=== PATIENT | female | born 1935 | race Caucasian/White ===

== ENCOUNTER 2017-11-10 14:33 | Inpatient (IN) | payer MEDICARE, BC ==
[2017-11-10] MEDS ORDERED: VANCOMYCIN IV PER PHARMACY 1 EACH MISC MISCELLANE PRN (14:45)
[2017-11-10] MEDS ORDERED: CEFEPIME 1 GM in SODIUM CHLORIDE 0.9% 50 ML IVPB STA (14:48)
[2017-11-10] MEDS ORDERED: VANCOMYCIN 1,500 MG in SODIUM CHLORIDE 0.9% 250 ML IVPB STA (14:52)
--- NOTE | 2017-11-10 15:00 | ED ---
Fever HPI - General Chief Complaint: Fever Stated Complaint: Fever Time Seen by Provider: 11/10/17 14:38 Source: patient, EMS, old records reviewed Mode of arrival: EMS Limitations: no limitations - History of Present Illness Initial Comments: Pt presents for fever, UTI from [facility]. Pt reportedly had positive UA, started on Amoxicillin, then switched to Macrobid. Pt received ibuprofen [employer], temp at [facility] today 102F. Pt A&O to self only at baseline, no reported change in mentation. Med list shows pt on tamiflu early August. History limited by condition of pt, dementia. MD Complaint: fever Onset/Timin -: days(s) - Related Data Home Medications Medication Instructions Recorded Confirmed Latanoprost Ophth [Xalatan 0.005%] 1 drop BOTH EYES HS 01/28/14 11/10/17 Levothyroxine Sodium [Synthroid] 25 mcg PO DAILY 01/28/14 11/10/17 Atorvastatin [Lipitor] 10 mg PO HS 07/30/14 11/10/17 Docusate [Colace] 200 mg PO BID@0800,1700 11/14/14 11/10/17 Cholecalciferol [Vitamin D3] 2,000 unit PO DAILY 12/11/15 11/10/17 Potassium Chloride [Klor-Con 10] 10 meq PO DAILY 12/11/15 11/10/17 Ascorbic Acid [Vitamin C] 500 mg PO DAILY 05/07/16 11/10/17 Magnesium Oxide [Magox 400] 400 mg PO DAILY 05/07/16 11/10/17 Betaseron Kit 0.3mg 1 dose SQ Q48H 06/09/16 11/10/17 Calcium Carbonate [Tums] 1,000 mg PO AC-SUPPER 06/09/16 11/10/17 Losartan [Cozaar] 50 mg PO QAM 06/09/16 11/10/17 Pramipexole [Mirapex] 0.25 mg PO HS 06/09/16 11/10/17 Psyllium Husk (with Sugar) 6 gm PO DAILY 06/09/16 11/10/17 [Metamucil Powder] Rivaroxaban [Xarelto] 20 mg PO DAILY@1700 06/09/16 11/10/17 Acetaminophen Tab [Tylenol Tab] 650 mg PO Q4H PRN 11/10/17 11/10/17 Amoxicillin/Potassium Clav 1 tab PO Q12HR 11/10/17 11/10/17 [Augmentin 875-125 Tablet] Bisacodyl [Dulcolax] 10 mg RECTAL HS PRN 11/10/17 11/10/17 Brinzolamide [Azopt 1% Ophth Susp] 1 drop BOTH EYES BID@0800,1700 11/10/1711/10 Brinzolamide/Brimonidine Tart 1 drop RIGHT EYE BID@0800,1700 11/10/17 11/10/17 [Simbrinza 1%-0.2% Eye Drops] Carboxymethyl/Gly/Poly80/Pf 1 dropper BOTH EYES DAILY PRN 11/10/17 11/10/17 [Refresh Optive Elio-3 Drops] Cranberry Fruit Extract [Cranberry] 400 mg PO BID@0800,1700 11/10/17 11/10/17 Cyanocobalamin [Vitamin B-12 1,000 mcg SQ QMONTH 11/10/17 11/10/17 Injection] Famotidine [Pepcid] 20 mg PO DAILY 11/10/17 11/10/17 Ibuprofen [Motrin] 800 mg PO Q6H PRN 11/10/17 11/10/17 Lactose-Reduced Food [Ensure Plus] 120 ml PO BID@0800,1700 11/10/17 11/10/17 Loratadine [Claritin] 10 mg PO DAILY PRN 11/10/17 11/10/17 Magnesium Hydroxide [Milk of 2,400 mg PO ONCE PRN 11/10/17 11/10/17 Magnesia] Metoprolol Tartrate [Lopressor] 25 mg PO BID@0800,1700 11/10/17 11/10/17 Mirtazapine [Remeron] 15 mg PO HS 11/10/17 11/10/17 Na Phos,M-B/Na Phos,Di-Ba [Fleet 133 ml RECTAL ONCE PRN 11/10/17 11/10/17 Adult] Previous Rx's Medication Instructions Recorded traMADol HCl [Ultram] 50 mg PO Q6H PRN #30 tab 06/11/16 Allergies Allergy/AdvReac Type Severity Reaction Status Date / Time acetaminophen [From Tylenol] Allergy Rash/Hives Verified 11/10/17 15:41 codeine Allergy Rash/Hives Verified 11/10/17 15:41 epinephrine Allergy Unknown Verified 11/10/17 15:41 sulfacetamide sodium Allergy Rash/Hives Verified 11/10/17 15:41 [From Sulfamide] adhesive AdvReac Unknown Verified 11/10/17 15:41 ciprofloxacin [From Cipro] AdvReac Unknown Verified 11/10/17 15:41 ciprofloxacin HCl AdvReac Unknown Verified 11/10/17 15:41 [From Cipro] oxycodone HCl [From Percocet] AdvReac Unknown Verified 11/10/17 15:41 prednisone AdvReac Unknown Verified 11/10/17 15:41 Sulfa (Sulfonamide AdvReac Nausea & Verified 11/10/17 15:41 Antibiotics) Vomiting Review of Systems ROS Statement: Those systems with pertinent positive or pertinent negative responses have been documented in the HPI. ROS Other: All systems not noted in ROS Statement are negative. Limitations: ROS unobtainable due to patients medical condition Constitutional: Reports: fever Endocrine: Reports: fatigue Past Medical History Past Medical History: Atrial Fibrillation, Cancer, CVA/TIA, Eye Disorder, Fibromyalgia, Hyperlipidemia, Musculoskeletal Disorder, Neurologic Disorder, Osteoarthritis (OA), Thyroid Disorder Additional Past Medical History / Comment(s): 12-11-15 CVA. FX LT HIP. 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 History of Any Multi-Drug Resistant Organisms: VRE Date of last positivie culture/infection: 06/09/16 MDRO Source:: Urine Past Surgical History: Breast Surgery, Cholecystectomy, Heart Catheterization, Hysterectomy, Orthopedic Surgery, Pacemaker Additional Past Surgical History / Comment(s): LT HIP CEMENTED UNIPOLAR HEMIARTHROPLASTY cardiac cath-normal, L AND R ROTATOR CUFF with R done twice, L BREAST PARTIAL MASTECTOMY(CYTOSCARCONA PHYLLODES) THEN RECONSTRUCTION, R BREAST REDUCTION, R EYE ANEURYSM- LASER, L KNEE ARTHROSCOPY, L FOOT SURGERY, R AND L CATARACT SURGERY, LYNETTEA PACEMAKER in January [address] Shell see paper chart for emergency info on pacemaker.CYSTOCELE REPAIR, GETS INJECTIONS IN EYES AND SHOULDER, colonoscopy 2012, capsulotomy-Yag laser 2014. Past Anesthesia/Blood Transfusion Reactions: Previous Problems w/ Anesthesia, Postoperative Nausea & Vomiting (PONV) Additional Past Anesthesia/Blood Transfusion Reaction / Comment(s): LOCAL- VOMITING AND SEIZURE hx long time waking up from anesthesia no epi in local anesthesia!!! Type of Cardiac Device: Permanent Pacemaker Device Placement Date:: 01/30/13 Past Psychological History: Anxiety Smoking Status: Former smoker Past Alcohol Use History: None Reported Past Drug Use History: None Reported - Past Family History Mother Family Medical History: Coronary Artery Disease (CAD) Father Family Medical History: Coronary Artery Disease (CAD), Myocardial Infarction ([place] ) Additional Family Medical History / Comment(s): mother and father-cardiac General Exam - General Exam Comments Initial Comments: Laying in bed alert. Mildly ill appearing. Appears fatigued. Not appear in pain. General appearance: alert, in no apparent distress Head exam: Present: atraumatic, normocephalic Eye exam: Present: normal appearance, PERRL. Absent: scleral icterus, conjunctival injection, periorbital swelling, periorbital tenderness ENT exam: Present: mucous membranes dry Neck exam: Present: normal inspection Respiratory exam: Present: normal lung sounds bilaterally. Absent: respiratory distress, wheezes, rales, rhonchi, stridor Cardiovascular Exam: Present: normal rhythm, tachycardia GI/Abdominal exam: Present: soft. Absent: distended, tenderness, guarding, rebound, rigid Extremities exam: Present: normal inspection, normal capillary refill. Absent: pedal edema, joint swelling Neurological exam: Present: alert, other (Oriented to name. Does not know the hurts, place, year. Follows basic commands, moves all 4 extremities.) Psychiatric exam: Present: normal affect, normal mood Skin exam: Present: warm, dry, intact, normal color. Absent: rash Course Vital Signs 11/10/17 11/10/17 11/10/17 14:46 15:11 16:12 Temperature 99.1 F 98.1 F Pulse Rate 127 H 108 H 107 H Respiratory 16 16 16 Rate Blood Pressure 112/61 142/80 108/58 O2 Sat by Pulse 97 98 97 Oximetry Medical Decision Making - Medical Decision Making Afebrile on arrival. Reported fever today, tachycardic on arrival. Sepsis protocol ordered. Vanco & cefepime given possible healthcare associated infection. Patient worsening on 2 antibiotics outpatient. BP 112 systolic on arrival. Chest x-ray negative. Urinalysis shows possible cystitis with hematuria. Lactic acid 1.5 Patient with likely UTI, possible sepsis. Patient currently on antibiotics. Plan for admission to hospital. For continued IV antibiotic therapy, patient was on antibiotics as an outpatient without improvement. Spoke with PCP Dr. Jamison, updated patient condition results, agrees with admission, no further questions at this time. - Lab Data Result diagrams: 11/10/17 15:10 11/10/17 15:10 Lab Results 11/10/17 11/10/17 11/10/17 Range/Units 14:45 15:10 15:10 WBC 9.5 (3.8-10.6) k/uL RBC 3.90 (3.80-5.40) m/uL Hgb 11.1 L (11.4-16.0) gm/dL Hct 36.2 (34.0-46.0) % MCV 92.9 (80.0-100.0) fL MCH 28.5 (25.0-35.0) pg MCHC 30.7 L (31.0-37.0) g/dL RDW 13.7 (11.5-15.5) % Plt Count 132 L (150-450) k/uL Neutrophils % 93 % Lymphocytes % 3 % Monocytes % 2 % Eosinophils % 1 % Basophils % 0 % Neutrophils # 8.9 H (1.3-7.7) k/uL Lymphocytes # 0.3 L (1.0-4.8) k/uL Monocytes # 0.2 (0-1.0) k/uL Eosinophils # 0.1 (0-0.7) k/uL Basophils # 0.0 (0-0.2) k/uL Hypochromasia Slight PT (9.0-12.0) sec INR (<1.2) APTT (22.0-30.0) sec Sodium (137-145) mmol/L Potassium (3.5-5.1) mmol/L Chloride (98-107) mmol/L Carbon Dioxide (22-30) mmol/L Anion Gap mmol/L BUN (7-17) mg/dL Creatinine (0.52-1.04) mg/dL Est GFR (MDRD) Af Amer (>60 ml/min/1.73 sqM) Est GFR (MDRD) Non-Af (>60 ml/min/1.73 sqM) Glucose (74-99) mg/dL Plasma Lactic Acid [place] (0.7-2.0) mmol/L Calcium (8.4-10.2) mg/dL Total Bilirubin (0.2-1.3) mg/dL AST (14-36) U/L ALT (9-52) U/L Alkaline Phosphatase (38-126) U/L Total Protein (6.3-8.2) g/dL Albumin (3.5-5.0) g/dL TSH (0.465-4.680) mIU/L Urine Color Yellow Urine Appearance Cloudy H (Clear) Urine pH 6.5 (5.0-8.0) Ur Specific [place] 1.014 (1.001-1.035) Urine Protein 2+ H (Negative) Urine Glucose (UA) Negative (Negative) Urine Ketones Negative (Negative) Urine Blood Large H (Negative) Urine Nitrite Negative (Negative) Urine Bilirubin Negative (Negative) Urine Urobilinogen <2.0 (<2.0) mg/dL Ur Leukocyte Esterase Large H (Negative) Urine RBC >182 H (0-5) /hpf Urine WBC 176 H (0-5) /hpf Urine WBC Clumps Many H (None) /hpf Urine Bacteria Rare H (None) /hpf Influenza Type A RNA Not Detected (Not Detectd) Influenza Type B (PCR) Not Detected (Not Detectd) 11/10/17 11/10/17 11/10/17 Range/Units 15:10 15:10 15:10 WBC (3.8-10.6) k/uL RBC (3.80-5.40) m/uL Hgb (11.4-16.0) gm/dL Hct (34.0-46.0) % MCV (80.0-100.0) fL MCH (25.0-35.0) pg MCHC (31.0-37.0) g/dL RDW (11.5-15.5) % Plt Count (150-450) k/uL Neutrophils % % Lymphocytes % % Monocytes % % Eosinophils % % Basophils % % Neutrophils # (1.3-7.7) k/uL Lymphocytes # (1.0-4.8) k/uL Monocytes # (0-1.0) k/uL Eosinophils # (0-0.7) k/uL Basophils # (0-0.2) k/uL Hypochromasia PT 10.2 (9.0-12.0) sec INR 1.0 (<1.2) APTT 32.2 H (22.0-30.0) sec Sodium 143 (137-145) mmol/L Potassium 4.2 (3.5-5.1) mmol/L Chloride 110 H (98-107) mmol/L Carbon Dioxide 23 (22-30) mmol/L Anion Gap 10 mmol/L BUN 56 H (7-17) mg/dL Creatinine 1.40 H (0.52-1.04) mg/dL Est GFR (MDRD) Af Amer 44 (>60 ml/min/1.73 sqM) Est GFR (MDRD) Non-Af 36 (>60 ml/min/1.73 sqM) Glucose 163 H (74-99) mg/dL Plasma Lactic Acid [place] 1.5 (0.7-2.0) mmol/L Calcium 9.2 (8.4-10.2) mg/dL Total Bilirubin 0.5 (0.2-1.3) mg/dL AST 27 (14-36) U/L ALT 29 (9-52) U/L Alkaline Phosphatase 95 (38-126) U/L Total Protein 5.3 L (6.3-8.2) g/dL Albumin 2.6 L (3.5-5.0) g/dL TSH 2.100 (0.465-4.680) mIU/L Urine Color Urine Appearance (Clear) Urine pH (5.0-8.0) Ur Specific [place] (1.001-1.035) Urine Protein (Negative) Urine Glucose (UA) (Negative) Urine Ketones (Negative) Urine Blood (Negative) Urine Nitrite (Negative) Urine Bilirubin (Negative) Urine Urobilinogen (<2.0) mg/dL Ur Leukocyte Esterase (Negative) Urine RBC (0-5) /hpf Urine WBC (0-5) /hpf Urine WBC Clumps (None) /hpf Urine Bacteria (None) /hpf Influenza Type A RNA (Not Detectd) Influenza Type B (PCR) (Not Detectd) Disposition Clinical Impression: Sepsis, Complicated UTI (urinary tract infection) Disposition: ADMITTED IP TO THIS HOSP Condition: Good Referrals: Polo Jamison MD [Primary Care Provider] - 1-2 days
[2017-11-10 15:07] LABS: Appearance,Urine Cloudy (Clear); Bacteria,Urine Rare /hpf; Bilirubin,Urine Negative (Negative); Blood,Urine Large (Negative); Color,Urine Yellow; Glucose,Urine (UA) Negative (Negative); Ketones,Urine Negative (Negative); Leukocyte Esterase,Urine Large (Negative); Nitrite,Urine Negative (Negative); PH, Urine 6.5 (5.0-8.0); Protein,Urine 2+ (Negative); RBC,Urine >182 /hpf (0-5); Specific Gravity,Urine 1.014 (1.001-1.035); Urobilinogen,Urine <2.0 mg/dL (<2.0); WBC,Urine 176 /hpf (0-5)
--- NOTE | 2017-11-10 15:10 | XR ---
EXAMINATION TYPE: XR chest 1V portable DATE OF EXAM: 11/10/2017 COMPARISON: 06/09/2016 HISTORY: Fever TECHNIQUE: Single frontal view of the chest is obtained. FINDINGS: Postsurgical change involving the shoulders. Cardiac device noted. No evidence of pneumoth orax. No pleural effusion or focal consolidation. IMPRESSION: No acute process.
[2017-11-10 15:26] LABS: Basophils % (A) 0 %; Eosinophils # (A) 0.1 k/uL (0-0.7); Eosinophils % (A) 1 %; HCT 36.2 % (34.0-46.0); HGB 11.1 gm/dL (11.4-16.0); Hypochromasia Slight; Lymphocytes # (A) 0.3 k/uL (1.0-4.8); Lymphocytes % (A) 3 %; MCH 28.5 pg (25.0-35.0); MCHC 30.7 g/dL (31.0-37.0); MCV 92.9 fL (80.0-100.0); Mean Platelet Volume 8.3; Monocytes # (A) 0.2 k/uL (0-1.0); Monocytes % (A) 2 %; Neutrophils # (A) 8.9 k/uL (1.3-7.7); Neutrophils % (A) 93 %; Platelet Count 132 k/uL (150-450); RDW 13.7 % (11.5-15.5); WBC 9.5 k/uL (3.8-10.6)
[2017-11-10] MEDS: SODIUM CHLORIDE 0.9% 500 ML IV SCH ×2 (15:27→17:08)
[2017-11-10 15:35] LABS: Partial Thromboplastin Time 32.2 sec (22.0-30.0); Prothrombin Time 10.2 sec (9.0-12.0)
[2017-11-10 15:39] LABS: Albumin 2.6 g/dL (3.5-5.0); Calcium 9.2 mg/dL (8.4-10.2); Potassium 4.2 mmol/L (3.5-5.1); Total Bilirubin 0.5 mg/dL (0.2-1.3); Total Protein 5.3 g/dL (6.3-8.2)
[2017-11-10] MEDS: METOPROLOL TARTRATE 25 MG TAB PO SCH (20:31)
[2017-11-10] MEDS: SODIUM CHLORIDE 0.9% 1,000 ML IV SCH (20:34)
[2017-11-10] MEDS: PRAMIPEXOLE 0.25 MG TAB PO SCH (21:49)
[2017-11-10] MEDS: MIRTAZAPINE 15 MG TAB PO SCH (21:49)
[2017-11-10] MEDS ORDERED: BISACODYL 10 MG SUPP RECTAL PRN (21:50)
[2017-11-10] MEDS: LATANOPROST 0.005% OPHTH DROPS 2.5 ML BTL BOTH EYES SCH (21:50)
[2017-11-10] MEDS: ATORVASTATIN 10 MG TAB PO SCH (21:50)
[2017-11-10] MEDS ORDERED: MAGNESIUM HYDROXIDE 2,400 MG/10 ML CUP PO PRN (21:50)
[2017-11-10] MEDS ORDERED: ARTIFICIAL TEARS-HYPROMELLOSE DROPS 15 ML BTL BOTH EYES PRN (21:50)
[2017-11-10] MEDS ORDERED: LORATADINE 10 MG TAB PO PRN (21:50)
[2017-11-10] MEDS ORDERED: IBUPROFEN 800 MG TAB PO PRN (21:50)
[2017-11-11] MEDS: ACETAMINOPHEN TAB 325 MG TAB PO PRN ×2 (00:48→05:32)
[2017-11-11 04:12] LABS: Calcium 8.9 mg/dL (8.4-10.2)
[2017-11-11 04:17] LABS: Potassium 4.2 mmol/L (3.5-5.1)
[2017-11-11 04:31] LABS: Basophils % (A) 0 %; Eosinophils % (A) 0 %; HCT 36.1 % (34.0-46.0); HGB 11.4 gm/dL (11.4-16.0); Hypochromasia Slight; Lymphocytes # (A) 0.5 k/uL (1.0-4.8); Lymphocytes % (A) 6 %; MCH 28.8 pg (25.0-35.0); MCHC 31.6 g/dL (31.0-37.0); MCV 91.2 fL (80.0-100.0); Mean Platelet Volume 8.5; Monocytes # (A) 0.3 k/uL (0-1.0); Monocytes % (A) 4 %; Neutrophils # (A) 6.4 k/uL (1.3-7.7); Neutrophils % (A) 87 %; RBC 3.96 m/uL (3.80-5.40); RDW 13.6 % (11.5-15.5); WBC 7.4 k/uL (3.8-10.6)
[2017-11-11 05:15] LABS: Platelet Count 99 k/uL (150-450)
[2017-11-11] MEDS: LEVOTHYROXINE 25 MCG TAB PO SCH (05:32)
[2017-11-11] MEDS ORDERED: VANCOMYCIN 1,500 MG in SODIUM CHLORIDE 0.9% 250 ML IVPB SCH (06:00)
[2017-11-11] MEDS ORDERED: METOPROLOL TARTRATE 25 MG TAB PO SCH (08:00)
[2017-11-11] MEDS: SODIUM CHLORIDE 0.9% 1,000 ML IV SCH (08:01)
[2017-11-11] MEDS ORDERED: AMOXIC-POT CLAV 875-125MG 1 EACH TAB PO SCH (09:00)
[2017-11-11] MEDS: MAGNESIUM OXIDE 400 MG TAB PO SCH (09:58)
[2017-11-11] MEDS: BRIMONIDINE TARTRATE 0.2% DROPS 5 ML BTL RIGHT EYE SCH ×2 (10:00→17:49)
[2017-11-11] MEDS: DORZOLAMIDE HCL 2% DROPS 10 ML BTL BOTH EYES SCH ×2 (10:01→17:51)
[2017-11-11] MEDS: METOPROLOL TARTRATE 25 MG TAB PO SCH ×2 (10:08→17:53)
[2017-11-11] MEDS: DOCUSATE 100 MG CAP PO SCH ×2 (10:08→17:56)
[2017-11-11] MEDS: POTASSIUM CHLORIDE ER 10 MEQ TAB.ER.PRT PO SCH (10:09)
[2017-11-11] MEDS: LOSARTAN 50 MG TAB PO SCH (10:09)
[2017-11-11] MEDS: FAMOTIDINE 20 MG TAB PO SCH (10:09)
[2017-11-11] MEDS: BETASERON 0.3 MG SQ SCH (10:10)
[2017-11-11 10:49] VITALS: BMI 30.9
[2017-11-11 13:19] LABS: Glucose,Whole Blood 84 mg/dL (75-99)
--- NOTE | 2017-11-11 15:40 | HP ---
HISTORY AND PHYSICAL CHIEF COMPLAINT: Sepsis ?. HISTORY OF PRESENT ILLNESS: This is another OF many admissions for this 82-year-old white female who has multiple sclerosis, encephalopathy, dementia and blindness. She started to run a fever at [facility]. She is prone to frequent urinary tract infections. Antibiotics were started, but the next day the home sent her to the ER. REVIEW OF SYSTEMS: Unobtainable. PAST MEDICAL HISTORY: Past medical history, family history personal and social histories are all unobtainable. The details can be found on the documents accompanying her from the retirement. PHYSICAL EXAMINATION: Blood pressure is 128/78 with a pulse of 101, respirations of 42, and temperature of a 100.1. In general she appeared to be slightly dehydrated. Skin was hot and dry. Head, ears, eyes, nose, mouth, and throat were normal except for dry conjunctivae and mucous membranes. Neck veins were not distended. Chest was clear. There are no rales or rhonchi. Cardiac exam demonstrates sinus tachycardia. Abdomen is soft and seems nontender. There are no masses or visceromegaly. EXTREMITIES: Normal. Neurologically she was more lethargic than usual and non arousable. IMPRESSION: 1. Septicemia ? 2. Urinary tract infection ? 3. Multiple sclerosis. 4. Dementia. 5. Blindness. PLAN: 1. Bed rest. 2. IV fluids. 3. Appropriate cultures. 4. Antibiotics. MMODL / IJN: [id number] /
--- NOTE | 2017-11-11 16:01 | PN ---
PROGRESS NOTE CHIEF COMPLAINT: Septicemia. HISTORY OF PRESENT ILLNESS: This lady was still running high temps last night. Blood cultures were repeated. PHYSICAL EXAM: She is dry. Chest seems clear. She is slightly tachypneic. Cardiac exam is normal. Abdomen is soft and nontender. She is still very lethargic. IMPRESSION: 1. Septicemia. 2. Dehydration. 3. Multiple sclerosis. PLAN: 1. Await cultures. 2. ID consult. MMODL / IJN: [id number] /
[2017-11-11] MEDS ORDERED: RIVAROXABAN 20 MG TAB PO SCH (17:00)
[2017-11-11] MEDS: PRAMIPEXOLE 0.25 MG TAB PO SCH (23:00)
[2017-11-11] MEDS: RIVAROXABAN 10 MG TAB PO SCH (23:00)
[2017-11-11] MEDS: MIRTAZAPINE 15 MG TAB PO SCH (23:00)
[2017-11-11] MEDS: LATANOPROST 0.005% OPHTH DROPS 2.5 ML BTL BOTH EYES SCH (23:00)
[2017-11-11] MEDS: ATORVASTATIN 10 MG TAB PO SCH (23:00)
--- NOTE | 2017-11-12 00:54 | P.CONS ---
History of Present Illness - Reason for Consult Consult date: 11/11/17 - Chief Complaint Fever - History of Present Illness 82-year-old female who has multiple hospitalizations over the last several years related to bouts of sepsis likely from urinary tract infection. The patient's family is present. The patient has progressive dementia and is cared for the local extended care facility. Apparently she started to have some decreasing mental status and some fever because he was transported to hospital admission been treated with some oral antibiotic therapy with no improvement. Because of ongoing concerns of sepsis the infectious diseases was requested. The family relates that before admission she was not having nausea or emesis but was having poor appetite. She appeared to have no respiratory difficulties. Do not believe that she is not and diarrhea. There is no evidence of any hematemesis melena or hematochezia. No new Skin lesions appreciated Review of Systems ROS unobtainable: due to mental status Past Medical History Past Medical History: Atrial Fibrillation, Cancer, CVA/TIA, Dementia, Eye Disorder, Fibromyalgia, Hyperlipidemia, Hypertension, Musculoskeletal Disorder, Neurologic Disorder, Osteoarthritis (OA), Thyroid Disorder Additional Past Medical History / Comment(s): 12-11-15 CVA. FX LT HIP. 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 History of Any Multi-Drug Resistant Organisms: VRE Year Discovered:: 06/09/16 MDRO Source:: Urine Past Surgical History: Breast Surgery, Cholecystectomy, Heart Catheterization, Hysterectomy, Orthopedic Surgery, Pacemaker Additional Past Surgical History / Comment(s): LT HIP CEMENTED UNIPOLAR HEMIARTHROPLASTY cardiac cath-normal, L AND R ROTATOR CUFF with R done twice, L BREAST PARTIAL MASTECTOMY(CYTOSCARCONA PHYLLODES) THEN RECONSTRUCTION, R BREAST REDUCTION, R EYE ANEURYSM- LASER, L KNEE ARTHROSCOPY, L FOOT SURGERY, R AND L CATARACT SURGERY, ADAPTA DR PACEMAKER in January [address] Shell see paper chart for emergency info on pacemaker.CYSTOCELE REPAIR, GETS INJECTIONS IN EYES AND SHOULDER, colonoscopy 2012, capsulotomy-Yag laser 2014. Past Anesthesia/Blood Transfusion Reactions: Previous Problems w/ Anesthesia, Postoperative Nausea & Vomiting (PONV) Additional Past Anesthesia/Blood Transfusion Reaction / Comm: LOCAL-VOMITING AND SEIZURE hx long time waking up from anesthesia no epi in local anesthesia!!! Type of Cardiac Device: Permanent Pacemaker Device Placement Date:: 01/30/13 Additional Psychological History / Comment(s): . Resides in extended care. No tobacco use. No alcohol use. 3 adult children. No animal exposures. No experience no international travel Smoking Status: Former smoker - Past Family History Mother Family Medical History: Coronary Artery Disease (CAD) Father Family Medical History: Coronary Artery Disease (CAD), Myocardial Infarction ([place] ) Additional Family Medical History / Comment(s): mother and father-cardiac Medications and Allergies Home Medications and Allergies Comment(s): Current Medications Acetaminophen (Tylenol Tab) 650 mg PO Q4H PRN PRN Reason: Pain Last Admin: 11/11/17 05:32 Dose: 650 mg Artificial Tears (Artificial Tear Drops) 1 drops BOTH EYES DAILY PRN PRN Reason: Dry Eye(s) Atorvastatin Calcium (Lipitor) 10 mg PO HS [facility] Last Admin: 11/11/17 23:00 Dose: 10 mg Bisacodyl (Dulcolax) 10 mg RECTAL HS PRN PRN Reason: Constipation Brimonidine Tartrate (Alphagan P 0.2% Oph Soln) 1 drops RIGHT EYE BID@0800, 1700 [facility] Last Admin: 11/11/17 17:49 Dose: 1 drops Docusate Sodium (Colace) 200 mg PO BID@0800,1700 [facility] Last Admin: 11/11/17 17:56 Dose: 200 mg Dorzolamide HCl (Trusopt) 1 drops BOTH EYES BID@0800,1700 [facility] Last Admin: 11/11/17 17:51 Dose: 1 drops Famotidine (Pepcid) 20 mg PO DAILY [facility] Last Admin: 11/11/17 10:09 Dose: Not Given Sodium Chloride (Saline 0.9%) 1,000 mls @ 75 mls/hr IV .[id number] [facility] Last Admin: 11/11/17 08:01 Dose: Not Given Ceftazidime 2 gm/ Sodium (Chloride) 100 mls @ 100 mls/hr IVPB Q12HR [facility] Last Admin: 11/11/17 23:15 Dose: 100 mls/hr Ibuprofen (Motrin) 800 mg PO Q6H PRN PRN Reason: Pain or Fever > 100.5 Last Admin: 11/11/17 01:41 Dose: 800 mg Latanoprost (Xalatan 0.005%) 1 drops BOTH EYES [facility] Last Admin: 11/11/17 23:00 Dose: 1 drops Levothyroxine Sodium (Synthroid) 25 mcg PO DAILY@0630 [facility] Last Admin: 11/11/17 05:32 Dose: 25 mcg Loratadine (Claritin) 10 mg PO DAILY PRN PRN Reason: Allergy Symptoms Losartan Pot[facility] ([facility]ar) [facility] Admin: 11/11/17 10:09 Dose: Not Given Magnesium Hydroxide (Milk Of Magnesia) 2,400 mg PO ONCE PRN PRN Reason: Constipation Magnesium Oxide (Mag-Ox) 400 mg PO DAILY [facility] Last Admin: 11/11/17 09:58 Dose: Not Given Metoprolol Tartrate (Lopressor) 25 mg PO BID@0800,1700 [facility] Last Admin: 11/11/17 17:53 Dose: 25 mg Mirtazapine (Remeron) 15 mg PO [facility] Last Admin: 11/11/17 23:00 Dose: 15 mg Non-Formulary Medication (Betaseron Kit 0.3mg) 1 dose SQ Q48H [facility] Last Admin: 11/11/17 10:10 Dose: Not Given Potassium Chloride (K-Dur 10) 10 meq PO DAILY [facility] Last Admin: 11/11/17 10:09 Dose: Not Given Pramipexole Dihydrochloride (Mirapex) 0.25 mg PO [facility] Last Admin: 11/11/17 23:00 Dose: 0.25 mg Rivaroxaban (Xarelto) 20 mg PO DAILY@1700 [facility] Last Admin: 11/11/17 23:00 Dose: 20 mg Home Medications Medication Instructions Recorded Confirmed Type Latanoprost Ophth [Xalatan 0.005%] 1 drop BOTH EYES 01/28/14 11/10/17 History Levothyroxine Sodium [Synthroid] 25 mcg PO DAILY 01/28/14 11/10/17 History Atorvastatin [Lipitor] 10 mg PO HS 07/30/14 11/10/17 History Docusate [Colace] 200 mg PO BID@0800,1700 11/14/14 11/10/17 History Cholecalciferol [Vitamin D3] 2,000 unit PO DAILY 12/11/15 11/10/17 History Potassium Chloride [Klor-Con 10] 10 meq PO DAILY 12/11/15 11/10/17 History Ascorbic Acid [Vitamin C] 500 mg PO DAILY 05/07/16 11/10/17 History Magnesium Oxide [Magox 400] 400 mg PO DAILY 05/07/16 11/10/17 History Betaseron Kit 0.3mg 1 dose SQ Q48H 06/09/16 11/10/17 History Calcium Carbonate [Tums] 1,000 mg PO AC-SUPPER 06/09/16 11/10/17 History Losartan [Cozaar] 50 mg PO QAM 06/09/16 11/10/17 History Pramipexole [Mirapex] 0.25 mg PO HS 06/09/16 11/10/17 History Psyllium Husk (with Sugar) 6 gm PO DAILY 06/09/16 11/10/17 History [Metamucil Powder] Rivaroxaban [Xarelto] 20 mg PO DAILY@1700 06/09/16 11/10/17 History traMADol HCl [Ultram] 50 mg PO Q6H PRN #30 tab 06/11/16 11/10/17 Rx Acetaminophen Tab [Tylenol Tab] 650 mg PO Q4H PRN 11/10/17 11/10/17 History Amoxicillin/Potassium Clav 1 tab PO Q12HR 11/10/17 11/10/17 History [Augmentin 875-125 Tablet] Bisacodyl [Dulcolax] 10 mg RECTAL HS PRN 11/10/17 11/10/17 History Brinzolamide [Azopt 1% Ophth Susp] 1 drop BOTH EYES BID@0800,1700 11/10/1711/10 History Brinzolamide/Brimonidine Tart 1 drop RIGHT EYE BID@0800,1700 11/10/17 11/10/17 History [Simbrinza 1%-0.2% Eye Drops] Carboxymethyl/Gly/Poly80/Pf 1 dropper BOTH EYES DAILY PRN 11/10/17 11/10/17 History [Refresh Optive Elio-3 Drops] Cranberry Fruit Extract [Cranberry] 400 mg PO BID@0800,1700 11/10/17 11/10/17 History Cyanocobalamin [Vitamin B-12 1,000 mcg SQ QMONTH 11/10/17 11/10/17 History Injection] Famotidine [Pepcid] 20 mg PO DAILY 11/10/17 11/10/17 History Ibuprofen [Motrin] 800 mg PO Q6H PRN 11/10/17 11/10/17 History Lactose-Reduced Food [Ensure Plus] 120 ml PO BID@0800,1700 11/10/17 11/10/17 History Loratadine [Claritin] 10 mg PO DAILY PRN 11/10/17 11/10/17 History Magnesium Hydroxide [Milk of 2,400 mg PO ONCE PRN 11/10/17 11/10/17 History Magnesia] Metoprolol Tartrate [Lopressor] 25 mg PO BID@0800,1700 11/10/17 11/10/17 History Mirtazapine [Remeron] 15 mg PO HS 11/10/17 11/10/17 History Na Phos,M-B/Na Phos,Di-Ba [Fleet 133 ml RECTAL ONCE PRN 11/10/17 11/10/17 History Adult] Allergies Allergy/AdvReac Type Severity Reaction Status Date / Time acetaminophen [From Tylenol] Allergy Rash/Hives Verified 11/10/17 15:41 codeine Allergy Rash/Hives Verified 11/10/17 15:41 epinephrine Allergy Unknown Verified 11/10/17 15:41 sulfacetamide sodium Allergy Rash/Hives Verified 11/10/17 15:41 [From Sulfamide] adhesive AdvReac Unknown Verified 11/10/17 15:41 ciprofloxacin [From Cipro] AdvReac Unknown Verified 11/10/17 15:41 ciprofloxacin HCl AdvReac Unknown Verified 11/10/17 15:41 [From Cipro] oxycodone HCl [From Percocet] AdvReac Unknown Verified 11/10/17 15:41 prednisone AdvReac Unknown Verified 11/10/17 15:41 Sulfa (Sulfonamide AdvReac Nausea & Verified 11/10/17 15:41 Antibiotics) Vomiting Physical Exam Vitals: Vital Signs Temp Pulse Resp BP Pulse Ox 11/11/17 23:00 97.7 F 64 16 137/71 97 11/11/17 16:00 68 16 11/11/17 15:00 98.1 F 68 16 134/70 92 L 11/11/17 12:25 97.7 F 11/11/17 09:43 70 20 11/11/17 07:00 96.8 F L 70 20 94/58 96 11/11/17 04:00 100.4 F H 11/11/17 02:57 101.9 F H 97 18 146/51 94 L 11/11/17 00:52 104.2 F H Intake and Output 11/11/17 11/11/17 11/12/17 14:59 22:59 06:59 Intake Total 700 Balance 700 Intake: Intake, IV Titration 700 Amount Sodium Chloride 0.9% 1, 600 000 ml @ 75 mls/hr IV . [id number] [facility] Rx#:[id number] cefTAZidime 2 gm In 100 Sodium Chloride 0.9% 100 ml @ 100 mls/hr IVPB Q12HR [facility] Rx#:[id number] Other: Voiding Method Diaper Diaper # Voids 1 1 Weight 81.647 kg Patient Weight 11/12/17 06:59 Weight 81.647 kg 82-year-old female with advanced dementia but seems to be comfortable HEENT: Anicteric conjunctiva are pink and moist nasal mucosa grossly intact without significant lesions, there is no thrush. Dentition Neck: The neck without stiffness, no palpable thyromegaly or mass Lungs: Symmetrical air entry was noted with few basilar crackles no significant bronchial sounds no dullness or egophony Heart: Irregular with a positive S4 no murmur click or rub Abdomen: Positive bowel sounds soft and nontender without palpable masses or organomegaly. There was no guarding or rebound. Extremities: The upper and lower extremities have some wasting and spasticity but no significant ulcerations are seen pulses are 2+ and symmetric Neuro: Patient is arousable but provides no history did not really follow any commands either Skin is without erythema or breakdown Results CBC & Chem 7: 11/11/17 03:24 11/11/17 03:24 Labs: Abnormal Lab Results - Last 24 Hours (Table) 11/11/17 11/11/17 Range/Units 03:24 03:24 Plt Count 99 L (150-450) k/uL Lymphocytes # 0.5 L (1.0-4.8) k/uL Chloride 116 H (98-107) mmol/L Carbon Dioxide 20 L (22-30) mmol/L BUN 48 H (7-17) mg/dL Creatinine 1.11 H (0.52-1.04) mg/dL Microbiology - Last 24 Hours (Table) 11/10/17 14:45 Urine Culture - Final Urine,Catheterized 11/10/17 15:10 Blood Culture - Preliminary Blood No Growth after 24 hours Laboratory Results WBC 7.4 k/uL (3.8-10.6) 11/11/17 03:24 RBC 3.96 m/uL (3.80-5.40) 11/11/17 03:24 Hgb 11.4 gm/dL (11.4-16.0) 11/11/17 03:24 Hct 36.1 % (34.0-46.0) 11/11/17 03:24 MCV 91.2 fL (80.0-100.0) 11/11/17 03:24 MCH 28.8 pg (25.0-35.0) 11/11/17 03:24 MCHC 31.6 g/dL (31.0-37.0) 11/11/17 03:24 RDW 13.6 % (11.5-15.5) 11/11/17 03:24 Plt Count 99 k/uL (150-450) L 11/11/17 03:24 Neutrophils % 87 % 11/11/17 03:24 Lymphocytes % 6 % 11/11/17 03:24 Monocytes % 4 % 11/11/17 03:24 Eosinophils % 0 % 11/11/17 03:24 Basophils % 0 % 11/11/17 03:24 Neutrophils # 6.4 k/uL (1.3-7.7) 11/11/17 03:24 Lymphocytes # 0.5 k/uL (1.0-4.8) L 11/11/17 03:24 Monocytes # 0.3 k/uL (0-1.0) 11/11/17 03:24 Eosinophils # 0.0 k/uL (0-0.7) 11/11/17 03:24 Basophils # 0.0 k/uL (0-0.2) 11/11/17 03:24 Manual Slide Review Performed 11/11/17 03:24 Hypochromasia Slight 11/11/17 03:24 PT 10.2 sec (9.0-12.0) 11/10/17 15:10 INR 1.0 (<1.2) 11/10/17 15:10 APTT 32.2 sec (22.0-30.0) H 11/10/17 15:10 Sodium 145 mmol/L (137-145) 11/11/17 03:24 Potassium 4.2 mmol/L (3.5-5.1) 11/11/17 03:24 Chloride 116 mmol/L (98-107) H 11/11/17 03:24 Carbon Dioxide 20 mmol/L (22-30) L 11/11/17 03:24 Anion Gap 9 mmol/L 11/11/17 03:24 BUN 48 mg/dL (7-17) H 11/11/17 03:24 Creatinine 1.11 mg/dL (0.52-1.04) H 11/11/17 03:24 Est GFR (MDRD) Af Amer 57 (>60 ml/min/1.73 sqM) 11/11/17 03:24 Est GFR (MDRD) Non-Af 47 (>60 ml/min/1.73 sqM) 11/11/17 03:24 Glucose 99 mg/dL (74-99) 11/11/17 03:24 POC Glucose (mg/dL) 84 mg/dL (75-99) 11/11/17 13:15 POC Glu Mechanical Development Engineer ID Rochelle Welch 11/11/17 13:15 Plasma Lactic Acid [place] 1.5 mmol/L (0.7-2.0) 11/10/17 15:10 Calcium 8.9 mg/dL (8.4-10.2) 11/11/17 03:24 Total Bilirubin 0.5 mg/dL (0.2-1.3) 11/10/17 15:10 AST 27 U/L (14-36) 11/10/17 15:10 ALT 29 U/L (9-52) 11/10/17 15:10 Alkaline Phosphatase 95 U/L (38-126) 11/10/17 15:10 Total Protein 5.3 g/dL (6.3-8.2) L 11/10/17 15:10 Albumin 2.6 g/dL (3.5-5.0) L 11/10/17 15:10 TSH 2.100 mIU/L (0.465-4.680) 11/10/17 15:10 Urine Color Yellow 11/10/17 14:45 Urine Appearance Cloudy (Clear) H 11/10/17 14:45 Urine pH 6.5 (5.0-8.0) 11/10/17 14:45 Ur Specific [place] 1.014 (1.001-1.035) 11/10/17 14:45 Urine Protein 2+ (Negative) H 11/10/17 14:45 Urine Glucose (UA) Negative (Negative) 11/10/17 14:45 Urine Ketones Negative (Negative) 11/10/17 14:45 Urine Blood Large (Negative) H 11/10/17 14:45 Urine Nitrite Negative (Negative) 11/10/17 14:45 Urine Bilirubin Negative (Negative) 11/10/17 14:45 Urine Urobilinogen <2.0 mg/dL (<2.0) 11/10/17 14:45 Ur Leukocyte Esterase Large (Negative) H 11/10/17 14:45 Urine RBC >182 /hpf (0-5) H 11/10/17 14:45 Urine WBC 176 /hpf (0-5) H 11/10/17 14:45 Urine WBC Clumps Many /hpf (None) H 11/10/17 14:45 Urine Bacteria Rare /hpf (None) H 11/10/17 14:45 Influenza Type A RNA Not Detected (Not Detectd) 11/10/17 15:10 Influenza Type B (PCR) Not Detected (Not Detectd) 11/10/17 15:10 Laboratory Results WBC 7.4 k/uL (3.8-10.6) 11/11/17 03:24 RBC 3.96 m/uL (3.80-5.40) 11/11/17 03:24 Hgb 11.4 gm/dL (11.4-16.0) 11/11/17 03:24 Hct 36.1 % (34.0-46.0) 11/11/17 03:24 MCV 91.2 fL (80.0-100.0) 11/11/17 03:24 MCH 28.8 pg (25.0-35.0) 11/11/17 03:24 MCHC 31.6 g/dL (31.0-37.0) 11/11/17 03:24 RDW 13.6 % (11.5-15.5) 11/11/17 03:24 Plt Count 99 k/uL (150-450) L 11/11/17 03:24 Neutrophils % 87 % 11/11/17 03:24 Lymphocytes % 6 % 11/11/17 03:24 Monocytes % 4 % 11/11/17 03:24 Eosinophils % 0 % 11/11/17 03:24 Basophils % 0 % 11/11/17 03:24 Neutrophils # 6.4 k/uL (1.3-7.7) 11/11/17 03:24 Lymphocytes # 0.5 k/uL (1.0-4.8) L 11/11/17 03:24 Monocytes # 0.3 k/uL (0-1.0) 11/11/17 03:24 Eosinophils # 0.0 k/uL (0-0.7) 11/11/17 03:24 Basophils # 0.0 k/uL (0-0.2) 11/11/17 03:24 Manual Slide Review Performed 11/11/17 03:24 Hypochromasia Slight 11/11/17 03:24 PT 10.2 sec (9.0-12.0) 11/10/17 15:10 INR 1.0 (<1.2) 11/10/17 15:10 APTT 32.2 sec (22.0-30.0) H 11/10/17 15:10 Sodium 145 mmol/L (137-145) 11/11/17 03:24 Potassium 4.2 mmol/L (3.5-5.1) 11/11/17 03:24 Chloride 116 mmol/L (98-107) H 11/11/17 03:24 Carbon Dioxide 20 mmol/L (22-30) L 11/11/17 03:24 Anion Gap 9 mmol/L 11/11/17 03:24 BUN 48 mg/dL (7-17) H 11/11/17 03:24 Creatinine 1.11 mg/dL (0.52-1.04) H 11/11/17 03:24 Est GFR (MDRD) Af Amer 57 (>60 ml/min/1.73 sqM) 11/11/17 03:24 Est GFR (MDRD) Non-Af 47 (>60 ml/min/1.73 sqM) 11/11/17 03:24 Glucose 99 mg/dL (74-99) 11/11/17 03:24 POC Glucose (mg/dL) 84 mg/dL (75-99) 11/11/17 13:15 POC Glu Mechanical Development Engineer ID Rochelle Welch 11/11/17 13:15 Plasma Lactic Acid [place] 1.5 mmol/L (0.7-2.0) 11/10/17 15:10 Calcium 8.9 mg/dL (8.4-10.2) 11/11/17 03:24 Total Bilirubin 0.5 mg/dL (0.2-1.3) 11/10/17 15:10 AST 27 U/L (14-36) 11/10/17 15:10 ALT 29 U/L (9-52) 11/10/17 15:10 Alkaline Phosphatase 95 U/L (38-126) 11/10/17 15:10 Total Protein 5.3 g/dL (6.3-8.2) L 11/10/17 15:10 Albumin 2.6 g/dL (3.5-5.0) L 11/10/17 15:10 TSH 2.100 mIU/L (0.465-4.680) 11/10/17 15:10 Urine Color Yellow 11/10/17 14:45 Urine Appearance Cloudy (Clear) H 11/10/17 14:45 Urine pH 6.5 (5.0-8.0) 11/10/17 14:45 Ur Specific [place] 1.014 (1.001-1.035) 11/10/17 14:45 Urine Protein 2+ (Negative) H 11/10/17 14:45 Urine Glucose (UA) Negative (Negative) 11/10/17 14:45 Urine Ketones Negative (Negative) 11/10/17 14:45 Urine Blood Large (Negative) H 11/10/17 14:45 Urine Nitrite Negative (Negative) 11/10/17 14:45 Urine Bilirubin Negative (Negative) 11/10/17 14:45 Urine Urobilinogen <2.0 mg/dL (<2.0) 11/10/17 14:45 Ur Leukocyte Esterase Large (Negative) H 11/10/17 14:45 Urine RBC >182 /hpf (0-5) H 11/10/17 14:45 Urine WBC 176 /hpf (0-5) H 11/10/17 14:45 Urine WBC Clumps Many /hpf (None) H 11/10/17 14:45 Urine Bacteria Rare /hpf (None) H 11/10/17 14:45 Influenza Type A RNA Not Detected (Not Detectd) 11/10/17 15:10 Influenza Type B (PCR) Not Detected (Not Detectd) 11/10/17 15:10 Microbiology 11/10/17 14:45 Urine,Catheterized Urine Culture - Final 11/10/17 15:10 Blood Blood Culture - Preliminary No Growth after 24 hours Recent urine culture was Morganella and pseudomonas aeruginosa Assessment and Plan (1) Fever Current Visit: Yes Status: Acute Code(s): R50.9 - FEVER, UNSPECIFIED SNOMED Code(s): 415790135 (2) Leukocytosis Current Visit: Yes Status: Acute Code(s): D72.829 - ELEVATED WHITE BLOOD CELL COUNT, UNSPECIFIED SNOMED Code(s): 610514281 (3) Dementia Current Visit: No Status: Acute Code(s): F03.90 - UNSPECIFIED DEMENTIA WITHOUT BEHAVIORAL DISTURBANCE SNOMED Code(s): 92010819 (4) Multiple sclerosis Current Visit: No Status: Acute Code(s): G35 - MULTIPLE SCLEROSIS SNOMED Code(s): 91260387 (5) UTI (urinary tract infection) Narrative/Plan: 82-year-old female is brought from the extended care facility with worsening of her status with fever 104.2 as well as decreased mental status. With this she was brought to hospital and receiving fluid resuscitation and at the time of the consult being called prior cultures reviewed and antibiotic therapy was initiated with ceftazidime ensure that the prior isolated Morganella and pseudomonas aeruginosa are being treated. Current cultures are pending. Blood cultures are pending. Leukocytosis is noted. She does have evidence of some anemia but is not profound. Current urinalysis does show evidence of many bacteria many white cells and gram-negative bacilli. For now supportive care continue rehydration to help with her acute renal failure. She will be positioned in ongoing basis to prevent pressure ulcerations and may need heel pads to protect her. nutrition as per the primary care service but will need supplementation given her evidence of some protein calorie malnutrition. The data is reviewed and she appears to have an appropriate CODE STATUS. Cultures were determine her need for treatment with antibiotics the time of her transfer if there'll be any oral options. Current Visit: No Status: Acute Code(s): N39.0 - URINARY TRACT INFECTION, SITE NOT SPECIFIED SNOMED Code(s): 34638526 (6) Sepsis Current Visit: Yes Status: Acute Code(s): A41.9 - SEPSIS, UNSPECIFIED ORGANISM SNOMED Code(s): 23200345
[2017-11-12] MEDS: SODIUM CHLORIDE 0.9% 1,000 ML IV SCH ×2 (04:41→07:44)
[2017-11-12] MEDS ORDERED: VANCOMYCIN 1,500 MG in SODIUM CHLORIDE 0.9% 250 ML IVPB SCH (06:00)
[2017-11-12] MEDS: LEVOTHYROXINE 25 MCG TAB PO SCH (06:07)
[2017-11-12] MEDS: DORZOLAMIDE HCL 2% DROPS 10 ML BTL BOTH EYES SCH ×2 (07:42→17:48)
[2017-11-12] MEDS: METOPROLOL TARTRATE 25 MG TAB PO SCH ×2 (07:43→17:49)
[2017-11-12] MEDS: BRIMONIDINE TARTRATE 0.2% DROPS 5 ML BTL RIGHT EYE SCH ×2 (07:43→17:48)
[2017-11-12] MEDS: DOCUSATE 100 MG CAP PO SCH ×2 (07:43→17:48)
[2017-11-12] MEDS: LOSARTAN 50 MG TAB PO SCH (07:44)
[2017-11-12] MEDS: FAMOTIDINE 20 MG TAB PO SCH (07:44)
[2017-11-12] MEDS: MAGNESIUM OXIDE 400 MG TAB PO SCH (07:44)
[2017-11-12] MEDS: POTASSIUM CHLORIDE ER 10 MEQ TAB.ER.PRT PO SCH (07:44)
[2017-11-12] MEDS: ACETAMINOPHEN TAB 325 MG TAB PO PRN (07:54)
--- NOTE | 2017-11-12 16:47 | PN ---
PROGRESS NOTE CHIEF COMPLAINT: Sepsis. HISTORY OF PRESENT ILLNESS: This lady is a little bit better. She is a little bit more alert. She is still running low-grade temperatures, but other than that she is stable. PHYSICAL EXAM: She still has occasional rhonchi and rales bilaterally. Temperature is 100.6. Cardiac exam is normal. Abdomen is soft, nontender. IMPRESSION: 1. Septicemia. 2. Multiple sclerosis. 3. Blindness. PLAN: 1. Continue on IV fluids and antibiotics. 2. Try to progress activity and diet. MMODL / IJN: [id number] /
[2017-11-12] MEDS: RIVAROXABAN 10 MG TAB PO SCH (17:49)
--- NOTE | 2017-11-12 18:53 | CONS ---
CONSULTATION REASON FOR CONSULT: Renal failure. HISTORY OF PRESENT ILLNESS: Patient is an 82-year-old female who was admitted to the hospital on 11/10/2017 with fever. There was positive history of UTI prior to admission. The patient had also been on ibuprofen for the fever. Serum creatinine was at 1.4 mg/dL. The patient is maintained on IV fluids. Her creatinine is now down to 1.1 mg/dL. No significant urinary symptoms. Patient is voiding in a diaper. PAST MEDICAL HISTORY: A. fib., history of CVA, TIA, dementia, fibromyalgia, hyperlipidemia, hypertension, osteoarthritis, fracture of left hip, multiple sclerosis, hypothyroidism, history of VRE in the urine. PAST SURGICAL HISTORY: Cholecystectomy, cardiac catheterization, hysterectomy, pacemaker placement, left hip hemiarthroplasty, left and right rotator cuff surgeries, left breast partial mastectomy, right breast reduction. SOCIAL HISTORY: Patient is a former smoker. No history of drug abuse or alcohol abuse. Currently, she resides at a fpc. MEDICATIONS PRIOR TO ADMISSION: Included: 1. Synthroid. 2. Lipitor. 3. Colace. 4. Vitamin D3. 5. Vitamin C. 6. Tums. 7. Cozaar. 8. Xarelto. 9. Tylenol. 10.Pepcid. 11.Motrin. 12.Claritin. 13.Milk of magnesia. 14.Lopressor. ALLERGIES: Include TYLENOL, CODEINE, CIPRO, PERCOCET, PREDNISONE, SULFA. EXAMINATION: Patient is comfortable. She is not in any acute distress. Blood pressure is 145/74, heart rate 100 per minute, T-max 100.6. HEART: S1, S2. LUNGS: Bilateral breath sounds are heard. Abdomen is soft, nontender. Lower extremities show no significant edema. LABS: Show sodium 145, potassium 4.2, chloride 116, CO2 is 20, BUN 48, serum creatinine 1.1. Hemoglobin 11.4 g/dL. ASSESSMENT: 1. Acute kidney injury, prerenal, currently improved. Continue with IV fluids. The patient is maintained on Motrin, which I will discontinue. 2. Urinary tract infection. Current urine culture showing no growth, being followed by Infectious Disease, maintained on ceftazidime. 3. Underlying dementia. 4. Hypothyroidism. 5. Hypertension, maintained on Cozaar. Blood pressure is not low. We can continue the current dose of Cozaar. PLAN: Continue IV fluids. Repeat labs in a.m. Avoid any other nephrotoxic agents and discontinue the Motrin. Thank you for this consultation. We will continue to follow the patient with you during her hospitalization. DARLENEL / RUBIAN: [id number] /
[2017-11-12] MEDS: PRAMIPEXOLE 0.25 MG TAB PO SCH (20:54)
[2017-11-12] MEDS: MIRTAZAPINE 15 MG TAB PO SCH (20:54)
[2017-11-12] MEDS: ATORVASTATIN 10 MG TAB PO SCH (20:55)
[2017-11-12] MEDS: LATANOPROST 0.005% OPHTH DROPS 2.5 ML BTL BOTH EYES SCH (20:55)
[2017-11-13] MEDS: SODIUM CHLORIDE 0.9% 1,000 ML IV SCH ×2 (05:14→17:53)
[2017-11-13] MEDS: LEVOTHYROXINE 25 MCG TAB PO SCH (06:08)
[2017-11-13] MEDS: DOCUSATE 100 MG CAP PO SCH ×2 (10:07→17:54)
[2017-11-13] MEDS: LOSARTAN 50 MG TAB PO SCH (10:08)
[2017-11-13] MEDS: POTASSIUM CHLORIDE ER 10 MEQ TAB.ER.PRT PO SCH (10:08)
[2017-11-13] MEDS: BRIMONIDINE TARTRATE 0.2% DROPS 5 ML BTL RIGHT EYE SCH ×2 (10:08→17:53)
[2017-11-13] MEDS: METOPROLOL TARTRATE 25 MG TAB PO SCH ×2 (10:08→16:58)
[2017-11-13] MEDS: DORZOLAMIDE HCL 2% DROPS 10 ML BTL BOTH EYES SCH ×2 (10:08→17:53)
[2017-11-13] MEDS: MAGNESIUM OXIDE 400 MG TAB PO SCH (10:09)
[2017-11-13] MEDS: FAMOTIDINE 20 MG TAB PO SCH (10:09)
[2017-11-13] MEDS: BETASERON 0.3 MG SQ SCH (10:10)
[2017-11-13 13:17] LABS: Anion Gap 11 mmol/L; Blood Urea Nitrogen 18 mg/dL (7-17); Carbon Dioxide 18 mmol/L (22-30); Chloride 113 mmol/L (98-107); Glucose 95 mg/dL (74-99); Sodium 142 mmol/L (137-145)
[2017-11-13 13:29] LABS: Potassium 2.9 mmol/L (3.5-5.1)
[2017-11-13] MEDS ORDERED: Potassium Replacement Protocol 1 EACH MISC MISCELLANE PRN (13:58)
[2017-11-13] MEDS ORDERED: POTASSIUM CHLORIDE 10 MEQ in SODIUM CHLORIDE 0.9% 100 ML IVPB SCH (14:00)
[2017-11-13] MEDS: POTASSIUM CHLORIDE 10 MEQ in SODIUM CHLORIDE 0.9% 100 ML IVPB SCH ×3 (15:06→17:52)
--- NOTE | 2017-11-13 16:37 | PN ---
PROGRESS NOTE The patient is seen for followup for acute kidney injury. Serum creatinine improved from 1.4-0.79 mg/dL today. Patient is maintained on IV fluids. She is currently comfortable awake. She is not in any acute distress. Blood pressure is 154/84, heart rate 79 per minute. She is afebrile. Examination of the heart: S1, S2. Examination lungs: Bilateral breath sounds are heard. Abdomen is soft, nontender, obese. Examination lower extremities shows no significant edema. LAB: Show sodium 142, potassium 2.9, chloride 113, CO2 is 18, BUN 18, serum creatinine 0.79, hemoglobin was 11.4 on November 11. ASSESSMENT: 1. Acute kidney injury, currently significantly improved. Etiology is prerenal. The patient is maintained on IV fluids which we can continue. She had also been on Motrin, which is now discontinued. 2. Urinary tract infections. However, urine cultures show no growth. The patient is maintained on ceftazidime. I am not sure of the culture was drawn after antibiotic administration. 3. Underlying dementia. 4. Hypertension. Maintained on Cozaar. We can continue the current dose. 5. Hypothyroidism. 6. Severe hypokalemia. Will replace and check a magnesium level as well. PLAN: Replace potassium. Check magnesium. Continue IV fluids and encourage increased oral intake. MMODL / IJN: [id number] /
[2017-11-13] MEDS: RIVAROXABAN 10 MG TAB PO SCH (17:53)
[2017-11-13] MEDS: LATANOPROST 0.005% OPHTH DROPS 2.5 ML BTL BOTH EYES SCH (21:33)
[2017-11-13] MEDS: MIRTAZAPINE 15 MG TAB PO SCH (21:33)
[2017-11-13] MEDS: ATORVASTATIN 10 MG TAB PO SCH (21:33)
[2017-11-13] MEDS: PRAMIPEXOLE 0.25 MG TAB PO SCH (21:33)
[2017-11-13] MEDS ORDERED: POTASSIUM CHLORIDE 10 MEQ in WATER FOR INJECTION 1 100ML.BAG IVPB STA (22:31)
[2017-11-14] MEDS ORDERED: POTASSIUM CHLORIDE 10 MEQ in WATER FOR INJECTION 1 100ML.BAG IVPB STA (00:26)
[2017-11-14] MEDS: POTASSIUM CHLORIDE 10 MEQ in WATER FOR INJECTION 1 100ML.BAG IVPB SCH ×2 (03:55→05:05)
[2017-11-14] MEDS: SODIUM CHLORIDE 0.9% 1,000 ML IV SCH ×2 (05:36→12:41)
[2017-11-14] MEDS: LEVOTHYROXINE 25 MCG TAB PO SCH (06:17)
[2017-11-14] MEDS: ACETAMINOPHEN TAB 325 MG TAB PO PRN (08:18)
[2017-11-14] MEDS: DORZOLAMIDE HCL 2% DROPS 10 ML BTL BOTH EYES SCH ×2 (08:22→18:22)
[2017-11-14] MEDS: BRIMONIDINE TARTRATE 0.2% DROPS 5 ML BTL RIGHT EYE SCH ×2 (08:22→18:23)
[2017-11-14] MEDS: LOSARTAN 50 MG TAB PO SCH (08:23)
[2017-11-14] MEDS: POTASSIUM CHLORIDE ER 10 MEQ TAB.ER.PRT PO SCH (08:23)
[2017-11-14] MEDS: FAMOTIDINE 20 MG TAB PO SCH (08:24)
[2017-11-14] MEDS: DOCUSATE 100 MG CAP PO SCH ×2 (08:24→18:23)
[2017-11-14] MEDS: MAGNESIUM OXIDE 400 MG TAB PO SCH (08:24)
[2017-11-14] MEDS: METOPROLOL TARTRATE 25 MG TAB PO SCH ×2 (08:24→18:23)
[2017-11-14] MEDS ORDERED: POTASSIUM CHLORIDE ER 20 MEQ TAB.ER PO STA (09:30)
--- NOTE | 2017-11-14 09:31 | P.PN ---
Subjective Patient is seen in follow-up for acute kidney injury. Creatinine was 1.4 on admission and was on to 0.79 yesterday. However her potassium was also low at 2.9 and is up to 3.6 this morning. Patient's on a full liquid diet and has not been eating much. She is currently resting in bed. She is not a very reliable historian. She was maintained on NSAIDs which have been discontinued. She is currently on normal saline at 75 mL an hour. Vital signs are stable. General: The patient appeared well nourished and normally developed. HEENT: Head exam is unremarkable. Neck is without jugular venous distension. LUNGS: Lungs are clear to auscultation and percussion. Breath sounds decreased. HEART: Rate and Rhythm are regular. First and second heart sounds normal. No murmurs, rubs or gallops. ABDOMEN: Abdominal exam reveals normal bowel sounds. Non-tender and non- distended. No evidence of peritonitis. EXTREMITITES: No clubbing, cyanosis, or edema. Objective - Vital Signs Vital signs: Vital Signs Temp 99.0 F 11/14/17 07:00 Pulse 90 11/14/17 08:00 Resp 18 11/14/17 08:00 BP 158/93 11/14/17 07:00 Pulse Ox 95 11/14/17 07:00 Intake & Output 11/13/17 11/14/17 11/14/17 18:59 06:59 18:59 Intake Total 550 Balance 550 Weight 81.647 kg Intake: Intake, IV Titration 550 Amount Sodium Chloride 0.9% 1, 450 000 ml @ 75 mls/hr IV . [id number] [facility] Rx#:[id number] cefTAZidime 2 gm In 100 Sodium Chloride 0.9% 100 ml @ 100 mls/hr IVPB Q12HR [facility] Rx#:[id number] Other: Voiding Method Diaper Diaper Diaper # Voids 4 # Bowel Movements 1 - Labs CBC & Chem 7: 11/11/17 03:24 11/14/17 07:04 Labs: Abnormal Lab Results - Last 24 Hours (Table) 11/13/17 11/13/17 Range/Units 12:29 21:26 Potassium 2.9 L* 3.3 L (3.5-5.1) mmol/L Chloride 113 H (98-107) mmol/L Carbon Dioxide 18 L (22-30) mmol/L BUN 18 H (7-17) mg/dL Microbiology - Last 24 Hours (Table) 11/11/17 03:09 Blood Culture Gram Stain - Preliminary Blood 11/11/17 03:09 Blood Culture - Final Blood 11/11/17 03:24 Blood Culture - Preliminary Blood No Growth after 72 hours 11/10/17 15:10 Blood Culture - Preliminary Blood No Growth after 72 hours Assessment and Plan Plan: Assessment: #1. Nonoliguric acute kidney injury mostly prerenal resolved with IV hydration. Creatinine down to 0.79 as of yesterday. #2. Hypokalemia due to poor oral intake. Magnesium 1.8. Improved post replacement. #3. Metabolic acidosis secondary to IV fluids. #4. Pyuria. Urine culture shows no growth. Maintain on antibiotics. Plan: Continue normal saline at 75 mL an hour. 40 mEq of potassium supplementation today. Avoid nephrotoxic agents and hypotensive episodes. Add sodium bicarb 650 mg twice daily. Repeat electrolytes in the morning.
[2017-11-14] MEDS: SODIUM BICARBONATE TAB 650 MG TAB PO SCH ×2 (12:40→20:29)
--- NOTE | 2017-11-14 14:35 | PN ---
PROGRESS NOTE DATE OF SERVICE: 11/13/2017 CHIEF COMPLAINT: Sepsis and multiple sclerosis. HISTORY OF PRESENT ILLNESS: This lady is just about the same. She is a little bit more arousable each day. She did have a blood culture come back positive for gram-negative organisms. PHYSICAL EXAMINATION: Temperature is normal. Chest is clear and cardiac exam is normal. The abdomen is soft, nontender. IMPRESSION: 1. Sepsis, etiology unknown. 2. Multiple sclerosis. 3. Blindness. 4. General debility. PLAN: Continue with IV fluids and antibiotics and continue supportive care. MMODL / IJN: [id number] /
--- NOTE | 2017-11-14 15:37 | XR ---
EXAMINATION TYPE: XR chest 1V portable DATE OF EXAM: 11/14/2017 COMPARISON: 11/10/2017 HISTORY: Pneumonia TECHNIQUE: Single frontal view of the chest is obtained. FINDINGS: Cardiac device stable in appearance. Heart size stable. Limited inspiration. Diffuse osteo penia. Postsurgical change involving both shoulders. Mild interstitial prominence. No pneumothorax. IMPRESSION: 1. Mild central interstitial prominence. May been the basis of a bronchitis or mild venous congestion . Interstitial pneumonia or pneumonitis in the differential diagnosis.
--- NOTE | 2017-11-14 17:32 | PN ---
PROGRESS NOTE DATE OF SERVICE: 11/14/17. CHIEF COMPLAINT: Sepsis. HISTORY OF PRESENT ILLNESS: This lady is doing reasonably well. She seems to be responding to her antibiotics. She did have a blood culture come back positive for gram-negative organisms. Her potassium has also come up into a normal range. PHYSICAL EXAM: Chest is fairly clear and cardiac exam is unchanged. Abdomen is soft, nontender. IMPRESSION: 1. Sepsis (gram-negative). 2. Multiple sclerosis. 3. Blindness. 4. Hypokalemia. PLAN: Continue with antibiotics and continue to monitor her neurologic state and cognitive function. MMODL / IJN: [id number] /
[2017-11-14] MEDS: RIVAROXABAN 10 MG TAB PO SCH (18:23)
[2017-11-14] MEDS: ATORVASTATIN 10 MG TAB PO SCH (20:29)
[2017-11-14] MEDS: LATANOPROST 0.005% OPHTH DROPS 2.5 ML BTL BOTH EYES SCH (20:29)
[2017-11-14] MEDS: MIRTAZAPINE 15 MG TAB PO SCH (20:29)
[2017-11-14] MEDS: PRAMIPEXOLE 0.25 MG TAB PO SCH (20:29)
--- NOTE | 2017-11-14 23:23 | P.PN ---
Subjective Progress Note Date: 11/14/17 82-year-old female who has multiple hospitalizations over the last several years related to bouts of sepsis likely from urinary tract infection. The patient's family is present. The patient has progressive dementia and is cared for the local extended care facility. Apparently she started to have some decreasing mental status and some fever because he was transported to hospital admission been treated with some oral antibiotic therapy with no improvement. Because of ongoing concerns of sepsis the infectious diseases was requested. The family relates that before admission she was not having nausea or emesis but was having poor appetite. She appeared to have no respiratory difficulties. Do not believe that she is not and diarrhea. There is no evidence of any hematemesis melena or hematochezia. No new Skin lesions appreciated 11/14/2017 patient is doing considerably better. Mentation is improved today. Appetite is improved. Ingested approximately 40% of her dinner. Daughter voices concerns about adequate blood sugar control given her CBT 1 deficiency. With patient's marked improvement this evening likely starting to have a nice response to the treatment of her gram-negative sepsis from urinary system. Was having some difficulty earlier and fluids have been decreased to 20 mL an hour. Objective - Vital Signs Vital signs: Vital Signs Temp 97.3 F L 11/14/17 23:00 Pulse 77 11/14/17 23:00 Resp 17 11/14/17 23:00 BP 140/70 11/14/17 23:00 Pulse Ox 96 11/14/17 23:00 Intake & Output 11/14/17 11/14/17 11/15/17 06:59 18:59 06:59 Intake Total 700 Balance 700 Weight 81.647 kg Intake: Intake, IV Titration 700 Amount Potassium Chloride 10 meq 700 In Water For Injection 1 100ml.bag @ 100 mls/hr IVPB Q1H [facility] Rx#: [id number] Other: Voiding Method Diaper Diaper # Voids 4 1 # Bowel Movements 1 - Exam 82-year-old female with advanced dementia but seems to be comfortable HEENT: Anicteric conjunctiva are pink and moist nasal mucosa grossly intact without significant lesions, there is no thrush. Dentition Neck: The neck without stiffness, no palpable thyromegaly or mass Lungs: Symmetrical air entry was noted with few basilar crackles no significant bronchial sounds no dullness or egophony Heart: Irregular with a positive S4 no murmur click or rub Abdomen: Positive bowel sounds soft and nontender without palpable masses or organomegaly. There was no guarding or rebound. Extremities: The upper and lower extremities have some wasting and spasticity but no significant ulcerations are seen pulses are 2+ and symmetric Neuro: Patient is awake but provides no history \with the assistance of her family ate approximate 40% of her dinner is much more awake this evening. Skin is without erythema or breakdown - Labs CBC & Chem 7: 11/11/17 03:24 11/14/17 07:04 Labs: Microbiology - Last 24 Hours (Table) 11/11/17 03:09 Blood Culture Gram Stain - Preliminary Blood Blood Culture - Preliminary Gram Neg Bacilli 11/10/17 15:10 Blood Culture - Preliminary Blood No Growth after 96 hours 11/11/17 03:09 Blood Culture - Final Blood 11/11/17 03:24 Blood Culture - Preliminary Blood No Growth after 72 hours Laboratory Results WBC 7.4 k/uL (3.8-10.6) 11/11/17 03:24 RBC 3.96 m/uL (3.80-5.40) 11/11/17 03:24 Hgb 11.4 gm/dL (11.4-16.0) 11/11/17 03:24 Hct 36.1 % (34.0-46.0) 11/11/17 03:24 MCV 91.2 fL (80.0-100.0) 11/11/17 03:24 MCH 28.8 pg (25.0-35.0) 11/11/17 03:24 MCHC 31.6 g/dL (31.0-37.0) 11/11/17 03:24 RDW 13.6 % (11.5-15.5) 11/11/17 03:24 Plt Count 99 k/uL (150-450) L 11/11/17 03:24 Neutrophils % 87 % 11/11/17 03:24 Lymphocytes % 6 % 11/11/17 03:24 Monocytes % 4 % 11/11/17 03:24 Eosinophils % 0 % 11/11/17 03:24 Basophils % 0 % 11/11/17 03:24 Neutrophils # 6.4 k/uL (1.3-7.7) 11/11/17 03:24 Lymphocytes # 0.5 k/uL (1.0-4.8) L 11/11/17 03:24 Monocytes # 0.3 k/uL (0-1.0) 11/11/17 03:24 Eosinophils # 0.0 k/uL (0-0.7) 11/11/17 03:24 Basophils # 0.0 k/uL (0-0.2) 11/11/17 03:24 Manual Slide Review Performed 11/11/17 03:24 Hypochromasia Slight 11/11/17 03:24 PT 10.2 sec (9.0-12.0) 11/10/17 15:10 INR 1.0 (<1.2) 11/10/17 15:10 APTT 32.2 sec (22.0-30.0) H 11/10/17 15:10 Sodium 142 mmol/L (137-145) 11/13/17 12:29 Potassium 3.6 mmol/L (3.5-5.1) 11/14/17 07:04 Chloride 113 mmol/L (98-107) H 11/13/17 12:29 Carbon Dioxide 18 mmol/L (22-30) L 11/13/17 12:29 Anion Gap 11 mmol/L 11/13/17 12:29 BUN 18 mg/dL (7-17) H 11/13/17 12:29 Creatinine 0.79 mg/dL (0.52-1.04) 11/13/17 12:29 Est GFR (MDRD) Af Amer >60 (>60 ml/min/1.73 sqM) 11/13/17 12:29 Est GFR (MDRD) Non-Af >60 (>60 ml/min/1.73 sqM) 11/13/17 12:29 Glucose 95 mg/dL (74-99) 11/13/17 12:29 POC Glucose (mg/dL) 84 mg/dL (75-99) 11/11/17 13:15 POC Glu Carousel Operator ID Rochelle Welch 11/11/17 13:15 Plasma Lactic Acid R[place]hawn 1.5 mmol/L (0.7-2.0) 11/10/17 15:10 Calcium 9.0 mg/dL (8.4-10.2) 11/13/17 12:29 Magnesium 1.8 mg/dL (1.6-2.3) 11/13/17 17:46 Total Bilirubin 0.5 mg/dL (0.2-1.3) 11/10/17 15:10 AST 27 U/L (14-36) 11/10/17 15:10 ALT 29 U/L (9-52) 11/10/17 15:10 Alkaline Phosphatase 95 U/L (38-126) 11/10/17 15:10 Total Protein 5.3 g/dL (6.3-8.2) L 11/10/17 15:10 Albumin 2.6 g/dL (3.5-5.0) L 11/10/17 15:10 TSH 2.100 mIU/L (0.465-4.680) 11/10/17 15:10 Urine Color Yellow 11/10/17 14:45 Urine Appearance Cloudy (Clear) H 11/10/17 14:45 Urine pH 6.5 (5.0-8.0) 11/10/17 14:45 Ur Specific [place] 1.014 (1.001-1.035) 11/10/17 14:45 Urine Protein 2+ (Negative) H 11/10/17 14:45 Urine Glucose (UA) Negative (Negative) 11/10/17 14:45 Urine Ketones Negative (Negative) 11/10/17 14:45 Urine Blood Large (Negative) H 11/10/17 14:45 Urine Nitrite Negative (Negative) 11/10/17 14:45 Urine Bilirubin Negative (Negative) 11/10/17 14:45 Urine Urobilinogen <2.0 mg/dL (<2.0) 11/10/17 14:45 Ur Leukocyte Esterase Large (Negative) H 11/10/17 14:45 Urine RBC >182 /hpf (0-5) H 11/10/17 14:45 Urine WBC 176 /hpf (0-5) H 11/10/17 14:45 Urine WBC Clumps Many /hpf (None) H 11/10/17 14:45 Urine Bacteria Rare /hpf (None) H 11/10/17 14:45 Influenza Type A RNA Not Detected (Not Detectd) 11/10/17 15:10 Influenza Type B (PCR) Not Detected (Not Detectd) 11/10/17 15:10 Microbiology 11/11/17 03:09 Blood Blood Culture Gram Stain - Preliminary 11/11/17 03:09 Blood Blood Culture - Preliminary Gram Neg Bacilli 11/10/17 15:10 Blood Blood Culture - Preliminary No Growth after 96 hours 11/11/17 03:09 Blood Blood Culture - Final 11/11/17 03:24 Blood Blood Culture - Preliminary No Growth after 72 hours 11/10/17 14:45 Urine,Catheterized Urine Culture - Final - Imaging and Cardiology Chest x-ray: report reviewed (Some interstitial prominence concerns to volume overload) Assessment and Plan (1) Fever Current Visit: Yes Status: Acute Code(s): R50.9 - FEVER, UNSPECIFIED SNOMED Code(s): 623610135 (2) Leukocytosis Current Visit: Yes Status: Acute Code(s): D72.829 - ELEVATED WHITE BLOOD CELL COUNT, UNSPECIFIED SNOMED Code(s): 818414256 (3) Dementia Current Visit: No Status: Acute Code(s): F03.90 - UNSPECIFIED DEMENTIA WITHOUT BEHAVIORAL DISTURBANCE SNOMED Code(s): 22578429 (4) Multiple sclerosis Current Visit: No Status: Acute Code(s): G35 - MULTIPLE SCLEROSIS SNOMED Code(s): 01040326 (5) UTI (urinary tract infection) Narrative/Plan: 82-year-old female is brought from the extended care facility with worsening of her status with fever 104.2 as well as decreased mental status. With this she was brought to hospital and receiving fluid resuscitation and at the time of the consult being called prior cultures reviewed and antibiotic therapy was initiated with ceftazidime ensure that the prior isolated Morganella and pseudomonas aeruginosa are being treated. Current cultures are pending. Blood cultures are pending. Leukocytosis is noted. She does have evidence of some anemia but is not profound. Current urinalysis does show evidence of many bacteria many white cells and gram-negative bacilli. For now supportive care continue rehydration to help with her acute renal failure. She will be positioned in ongoing basis to prevent pressure ulcerations and may need heel pads to protect her. nutrition as per the primary care service but will need supplementation given her evidence of some protein calorie malnutrition. The data is reviewed and she appears to have an appropriate CODE STATUS. On 11/14/2017 patient is showing some improvement. Nutritional status is improving which is likely helping her mental status. Appears to have volume overload and her fluid rate is decreased to 20 mL an hour. Gram-negative bacilli are found in her blood culture. Recent urine culture with Escherichia coli with some prior also with Pseudomonas. We'll maintain ceftazidime until final cultures available and then de-escalate antibiotic therapy at that time. Current Visit: No Status: Acute Code(s): N39.0 - URINARY TRACT INFECTION, SITE NOT SPECIFIED SNOMED Code(s): 23927077 (6) Sepsis Current Visit: Yes Status: Acute Code(s): A41.9 - SEPSIS, UNSPECIFIED ORGANISM SNOMED Code(s): 08132081
[2017-11-15] MEDS: SODIUM CHLORIDE 0.9% 1,000 ML IV SCH ×2 (00:22→14:58)
[2017-11-15] MEDS: LEVOTHYROXINE 25 MCG TAB PO SCH (06:10)
[2017-11-15 08:14] LABS: Anion Gap 9 mmol/L; Blood Urea Nitrogen 9 mg/dL (7-17); Calcium 8.6 mg/dL (8.4-10.2); Carbon Dioxide 21 mmol/L (22-30); Chloride 111 mmol/L (98-107); Glucose 94 mg/dL (74-99); Magnesium 1.7 mg/dL (1.6-2.3); Potassium 3.5 mmol/L (3.5-5.1); Sodium 141 mmol/L (137-145)
[2017-11-15] MEDS: POTASSIUM CHLORIDE ER 10 MEQ TAB.ER.PRT PO SCH (08:59)
[2017-11-15] MEDS: MAGNESIUM OXIDE 400 MG TAB PO SCH (08:59)
[2017-11-15] MEDS: DOCUSATE 100 MG CAP PO SCH ×2 (09:00→18:02)
[2017-11-15] MEDS: BRIMONIDINE TARTRATE 0.2% DROPS 5 ML BTL RIGHT EYE SCH ×2 (09:00→18:02)
[2017-11-15] MEDS: DORZOLAMIDE HCL 2% DROPS 10 ML BTL BOTH EYES SCH ×2 (09:00→18:04)
[2017-11-15] MEDS: LOSARTAN 50 MG TAB PO SCH (09:01)
[2017-11-15] MEDS: FAMOTIDINE 20 MG TAB PO SCH (09:01)
[2017-11-15] MEDS: SODIUM BICARBONATE TAB 650 MG TAB PO SCH ×2 (09:02→19:50)
[2017-11-15] MEDS: METOPROLOL TARTRATE 25 MG TAB PO SCH ×2 (09:02→18:03)
[2017-11-15] MEDS: BETASERON 0.3 MG SQ SCH (09:02)
[2017-11-15] MEDS ORDERED: POTASSIUM CHLORIDE ER 20 MEQ TAB.ER PO STA (11:57)
--- NOTE | 2017-11-15 12:35 | P.PN ---
Subjective Patient is seen in follow-up for acute kidney injury. Creatinine was 1.4 on admission and is down to 0.63 today. She is also been quite hypokalemic which has been replaced quite aggressively and is 3.5 today. Patient's on a full liquid diet and has not been eating much. She is currently resting in bed. She is not a very reliable historian. She was maintained on NSAIDs which have been discontinued. She is currently on normal saline at 75 mL an hour. She is currently being treated for E. coli UTI. She is also noted to have gram- negative bacilli in her blood from November 11. Vital signs are stable. General: The patient appeared well nourished and normally developed. HEENT: Head exam is unremarkable. Neck is without jugular venous distension. LUNGS: Lungs are clear to auscultation and percussion. Breath sounds decreased. HEART: Rate and Rhythm are regular. First and second heart sounds normal. No murmurs, rubs or gallops. ABDOMEN: Abdominal exam reveals normal bowel sounds. Non-tender and non- distended. No evidence of peritonitis. EXTREMITITES: No clubbing, cyanosis, or edema. Objective - Vital Signs Vital signs: Vital Signs Temp 98.8 F 11/15/17 07:00 Pulse 110 H 11/15/17 07:00 Resp 18 11/15/17 07:00 BP 133/67 11/15/17 07:00 Pulse Ox 95 11/15/17 07:00 Intake & Output 11/14/17 11/15/17 11/15/17 18:59 06:59 18:59 Intake Total 700 775 Balance 700 775 Weight 81.647 kg 81.647 kg Intake: IV 675 Sodium Chloride 0.9% 1, 675 000 ml @ 75 mls/hr IV . [id number] [facility] Rx#:[id number] Intake, IV Titration 700 Amount Potassium Chloride 10 meq 700 In Water For Injection 1 100ml.bag @ 100 mls/hr IVPB Q1H [facility] Rx#: [id number] Oral 100 Other: Voiding Method Diaper Diaper Diaper Incontinent Incontinent # Voids 1 1 1 # Bowel Movements 1 1 - Labs CBC & Chem 7: 11/11/17 03:24 11/15/17 07:21 Labs: Abnormal Lab Results - Last 24 Hours (Table) 11/15/17 Range/Units 07:21 Chloride 111 H (98-107) mmol/L Carbon Dioxide 21 L (22-30) mmol/L Microbiology - Last 24 Hours (Table) 11/11/17 03:24 Blood Culture - Preliminary Blood No Growth after 96 hours 11/11/17 03:09 Blood Culture Gram Stain - Preliminary Blood Blood Culture - Preliminary Gram Neg Bacilli 11/10/17 15:10 Blood Culture - Preliminary Blood No Growth after 96 hours Assessment and Plan Plan: Assessment: #1. Nonoliguric acute kidney injury mostly prerenal resolved with IV hydration. Resolved. #2. Hypokalemia due to poor oral intake. Magnesium 1.8. Improved post replacement. #3. Metabolic acidosis secondary to IV fluids. Improved. #4. Gram-negative bacteremia and E. coli UTI maintained on antibiotics per infectious disease recommendations. Plan: Continue normal saline at 75 mL an hour. 40 mEq of potassium supplementation today. Avoid nephrotoxic agents and hypotensive episodes. Maintain sodium bicarb 650 mg twice daily. Repeat electrolytes in the morning.
[2017-11-15] MEDS: TOBRAMYCIN 0.3% OPHTH DROPS 5 ML BTL RIGHT EYE SCH ×4 (12:54→23:28)
[2017-11-15] MEDS ORDERED: MAGNESIUM SULFATE-D5W PMX 1 GM in DEXTROSE/WATER 1 100ML.BAG IVPB ONE (13:00)
--- NOTE | 2017-11-15 14:42 | CDI ---
Last Revision, August 2017 Documentation Clarification Form Date: 11/15/2017 2:28:00 PM From: Analia Lopez RN, CCDS Admit Date: 11/10/2017 4:19:00 PM Patient Name: Felicia Caruso Visit Number: [id number] ATTENTION: The Clinical Documentation Specialists (CDI) and [facility] Coding Staff appreciate your assistance in clarifying documentation. Please respond to the clarification below the line at the bottom and electronically sign. The CDI & [facility] Coding staff will review the response and follow-up if needed. Please note: Queries are made part of the Legal Health Record. If you have any questions, please contact the author of this message via ITS. Dr. Mike Colvin Malnutrition has been documented in ID Consult and Progress Notes and requires further specificity. History/Risk Factors: MS, sepsis, dementia, blindness, recurrent UTI's Clinical Indicators: 11/14 ID progress Note: nutrition as per the primary care service but will need supplementation given her evidence of some protein calorie malnutrition." Labs: Albumin/ Total Protein: 2.6/5.3 Current BMI: 30.9 Insufficient energy intake: poor nutritional status per Dietary notes Loss of subcutaneous fat: Per nursing documentation, bilateral heels are "reddened and blanchable." Decreased hand livestock nutritionist strength: Nursing documentation: "bilateral hand grasps are equally weak. Strength in all extremities is equal but severely week, contractures, stiff."" Treatment: Dietary Consult: completed 11/11 & 11/15 Supplements: Ensure Enlive TID Lab monitoring: Per MD Orders In your professional opinion, can you please clarify if these findings signify one of the following conditions? Mild Protein-Calorie Malnutrition Moderate Protein-Calorie Malnutrition Severe Protein-Calorie Malnutrition Other condition, please specify Unable to determine Please continue to document in your progress notes and discharge summary in order to capture severity of illness and risk of mortality. Include clinical findings that support your diagnosis. Mild Protein-Calorie Malnutrition MTDD
[2017-11-15] MEDS: RIVAROXABAN 10 MG TAB PO SCH (18:03)
--- NOTE | 2017-11-15 19:45 | PN ---
PROGRESS NOTE DATE OF SERVICE: 11/15/17 CHIEF COMPLAINT: Sepsis and irritation of right eye. HISTORY OF PRESENT ILLNESS: This lady has developed redness and mattery discharge in the right eye. She is more alert each day. PHYSICAL EXAM: She has purulent conjunctivitis on the right. Chest is clear. Cardiac exam is normal. The abdomen is soft, nontender. IMPRESSION: 1. Sepsis. 2. Conjunctivitis, OD. 3. Multiple sclerosis. PLAN: Tobrex eye drops in the right eye and continue with IV antibiotics and fluids until certain her sepsis is cleared. [facility]. MMODL / IJN: [id number] /
[2017-11-15] MEDS: LATANOPROST 0.005% OPHTH DROPS 2.5 ML BTL BOTH EYES SCH (19:49)
[2017-11-15] MEDS: ATORVASTATIN 10 MG TAB PO SCH (19:50)
[2017-11-15] MEDS: PRAMIPEXOLE 0.25 MG TAB PO SCH (19:50)
[2017-11-15] MEDS: MIRTAZAPINE 15 MG TAB PO SCH (19:50)
--- NOTE | 2017-11-15 21:28 | P.PN ---
Subjective Progress Note Date: 11/15/17 Principal diagnosis: Sepsis 82-year-old female who has multiple hospitalizations over the last several years related to bouts of sepsis likely from urinary tract infection. The patient's family is present. The patient has progressive dementia and is cared for the local extended care facility. Apparently she started to have some decreasing mental status and some fever because he was transported to hospital admission been treated with some oral antibiotic therapy with no improvement. Because of ongoing concerns of sepsis the infectious diseases was requested. The family relates that before admission she was not having nausea or emesis but was having poor appetite. She appeared to have no respiratory difficulties. Do not believe that she is not and diarrhea. There is no evidence of any hematemesis melena or hematochezia. No new Skin lesions appreciated 11/14/2017 patient is doing considerably better. Mentation is improved today. Appetite is improved. Ingested approximately 40% of her dinner. Daughter voices concerns about adequate blood sugar control given her CBT 1 deficiency. With patient's marked improvement this evening likely starting to have a nice response to the treatment of her gram-negative sepsis from urinary system. Was having some difficulty earlier and fluids have been decreased to 20 mL an hour. 11/15/2017 is not the patient is improved but continues to have poor mentation. Bit of fluid overload has resolved. Nursing relates she's ingested more food today. Objective - Vital Signs Vital signs: Vital Signs Temp 98.6 F 11/15/17 15:00 Pulse 69 11/15/17 15:00 Resp 18 11/15/17 15:00 BP 116/63 11/15/17 15:00 Pulse Ox 97 11/15/17 15:00 Intake & Output 11/15/17 11/15/17 11/16/17 06:59 18:59 06:59 Intake Total 775 600 Balance 775 600 Weight 81.647 kg Intake: IV 675 600 Sodium Chloride 0.9% 1, 675 600 000 ml @ 75 mls/hr IV . [id number] [facility] Rx#:[id number] Oral 100 Other: Voiding Method Diaper Diaper Incontinent Incontinent # Voids 1 2 # Bowel Movements 1 - Exam 82-year-old female with advanced dementia but seems to be comfortable HEENT: Anicteric conjunctiva are pink and moist nasal mucosa grossly intact without significant lesions, there is no thrush. Dentition Neck: The neck without stiffness, no palpable thyromegaly or mass Lungs: Symmetrical air entry was noted with few basilar crackles no significant bronchial sounds no dullness or egophony Heart: Irregular with a positive S4 no murmur click or rub Abdomen: Positive bowel sounds soft and nontender without palpable masses or organomegaly. There was no guarding or rebound. Extremities: The upper and lower extremities have some wasting and spasticity but no significant ulcerations are seen pulses are 2+ and symmetric Neuro: Patient is awake but provides no history Skin is without erythema or breakdown - Labs CBC & Chem 7: 11/11/17 03:24 11/15/17 07:21 Labs: Abnormal Lab Results - Last 24 Hours (Table) 11/15/17 Range/Units 07:21 Chloride 111 H (98-107) mmol/L Carbon Dioxide 21 L (22-30) mmol/L Microbiology - Last 24 Hours (Table) 11/11/17 03:09 Blood Culture Gram Stain - Final Blood Blood Culture - Final Escherichia coli 11/10/17 15:10 Blood Culture - Preliminary Blood No Growth after 120 hours 11/11/17 03:24 Blood Culture - Preliminary Blood No Growth after 96 hours Laboratory Results WBC 7.4 k/uL (3.8-10.6) 11/11/17 03:24 RBC 3.96 m/uL (3.80-5.40) 11/11/17 03:24 Hgb 11.4 gm/dL (11.4-16.0) 11/11/17 03:24 Hct 36.1 % (34.0-46.0) 11/11/17 03:24 MCV 91.2 fL (80.0-100.0) 11/11/17 03:24 MCH 28.8 pg (25.0-35.0) 11/11/17 03:24 MCHC 31.6 g/dL (31.0-37.0) 11/11/17 03:24 RDW 13.6 % (11.5-15.5) 11/11/17 03:24 Plt Count 99 k/uL (150-450) L 11/11/17 03:24 Neutrophils % 87 % 11/11/17 03:24 Lymphocytes % 6 % 11/11/17 03:24 Monocytes % 4 % 11/11/17 03:24 Eosinophils % 0 % 11/11/17 03:24 Basophils % 0 % 11/11/17 03:24 Neutrophils # 6.4 k/uL (1.3-7.7) 11/11/17 03:24 Lymphocytes # 0.5 k/uL (1.0-4.8) L 11/11/17 03:24 Monocytes # 0.3 k/uL (0-1.0) 11/11/17 03:24 Eosinophils # 0.0 k/uL (0-0.7) 11/11/17 03:24 Basophils # 0.0 k/uL (0-0.2) 11/11/17 03:24 Manual Slide Review Performed 11/11/17 03:24 Hypochromasia Slight 11/11/17 03:24 PT 10.2 sec (9.0-12.0) 11/10/17 15:10 INR 1.0 (<1.2) 11/10/17 15:10 APTT 32.2 sec (22.0-30.0) H 11/10/17 15:10 Sodium 141 mmol/L (137-145) 11/15/17 07:21 Potassium 3.5 mmol/L (3.5-5.1) 11/15/17 07:21 Chloride 111 mmol/L (98-107) H 11/15/17 07:21 Carbon Dioxide 21 mmol/L (22-30) L 11/15/17 07:21 Anion Gap 9 mmol/L 11/15/17 07:21 BUN 9 mg/dL (7-17) 11/15/17 07:21 Creatinine 0.63 mg/dL (0.52-1.04) 11/15/17 07:21 Est GFR (MDRD) Af Amer >60 (>60 ml/min/1.73 sqM) 11/15/17 07:21 Est GFR (MDRD) Non-Af >60 (>60 ml/min/1.73 sqM) 11/15/17 07:21 Glucose 94 mg/dL (74-99) 11/15/17 07:21 POC Glucose (mg/dL) 84 mg/dL (75-99) 11/11/17 13:15 POC Glu Vehicle Washer ENRICO Rochelle Welch 11/11/17 13:15 Plasma Lactic Acid [place] 1.5 mmol/L (0.7-2.0) 11/10/17 15:10 Calcium 8.6 mg/dL (8.4-10.2) 11/15/17 07:21 Magnesium 1.7 mg/dL (1.6-2.3) 11/15/17 07:21 Total Bilirubin 0.5 mg/dL (0.2-1.3) 11/10/17 15:10 AST 27 U/L (14-36) 11/10/17 15:10 ALT 29 U/L (9-52) 11/10/17 15:10 Alkaline Phosphatase 95 U/L (38-126) 11/10/17 15:10 Total Protein 5.3 g/dL (6.3-8.2) L 11/10/17 15:10 Albumin 2.6 g/dL (3.5-5.0) L 11/10/17 15:10 TSH 2.100 mIU/L (0.465-4.680) 11/10/17 15:10 Urine Color Yellow 11/10/17 14:45 Urine Appearance Cloudy (Clear) H 11/10/17 14:45 Urine pH 6.5 (5.0-8.0) 11/10/17 14:45 Ur Specific [place] 1.014 (1.001-1.035) 11/10/17 14:45 Urine Protein 2+ (Negative) H 11/10/17 14:45 Urine Glucose (UA) Negative (Negative) 11/10/17 14:45 Urine Ketones Negative (Negative) 11/10/17 14:45 Urine Blood Large (Negative) H 11/10/17 14:45 Urine Nitrite Negative (Negative) 11/10/17 14:45 Urine Bilirubin Negative (Negative) 11/10/17 14:45 Urine Urobilinogen <2.0 mg/dL (<2.0) 11/10/17 14:45 Ur Leukocyte Esterase Large (Negative) H 11/10/17 14:45 Urine RBC >182 /hpf (0-5) H 11/10/17 14:45 Urine WBC 176 /hpf (0-5) H 11/10/17 14:45 Urine WBC Clumps Many /hpf (None) H 11/10/17 14:45 Urine Bacteria Rare /hpf (None) H 11/10/17 14:45 Influenza Type A RNA Not Detected (Not Detectd) 11/10/17 15:10 Influenza Type B (PCR) Not Detected (Not Detectd) 11/10/17 15:10 Microbiology 11/11/17 03:09 Blood Blood Culture Gram Stain - Final 11/11/17 03:09 Blood Blood Culture - Final Escherichia coli 11/10/17 15:10 Blood Blood Culture - Preliminary No Growth after 120 hours 11/11/17 03:24 Blood Blood Culture - Preliminary No Growth after 96 hours 11/11/17 03:09 Blood Blood Culture - Final 11/10/17 14:45 Urine,Catheterized Urine Culture - Final Assessment and Plan (1) Fever Current Visit: Yes Status: Acute Code(s): R50.9 - FEVER, UNSPECIFIED SNOMED Code(s): 729594353 (2) Leukocytosis Current Visit: Yes Status: Acute Code(s): D72.829 - ELEVATED WHITE BLOOD CELL COUNT, UNSPECIFIED SNOMED Code(s): 465087637 (3) Dementia Current Visit: No Status: Acute Code(s): F03.90 - UNSPECIFIED DEMENTIA WITHOUT BEHAVIORAL DISTURBANCE SNOMED Code(s): 55322520 (4) Multiple sclerosis Current Visit: No Status: Acute Code(s): G35 - MULTIPLE SCLEROSIS SNOMED Code(s): 20789780 (5) UTI (urinary tract infection) Narrative/Plan: 82-year-old female is brought from the [facility] with worsening of her status with fever 104.2 as well as decreased mental status. With this she was brought to hospital and receiving fluid resuscitation and at the time of the consult being called prior cultures reviewed and antibiotic therapy was initiated with ceftazidime ensure that the prior isolated Morganella and pseudomonas aeruginosa are being treated. Current cultures are pending. Blood cultures are pending. Leukocytosis is noted. She does have evidence of some anemia but is not profound. Current urinalysis does show evidence of many bacteria many white cells and gram-negative bacilli. For now supportive care continue rehydration to help with her acute renal failure. She will be positioned in ongoing basis to prevent pressure ulcerations and may need heel pads to protect her. nutrition as per the primary care service but will need supplementation given her evidence of some protein calorie malnutrition. The data is reviewed and she appears to have an appropriate CODE STATUS. On 11/14/2017 patient is showing some improvement. Nutritional status is improving which is likely helping her mental status. Appears to have volume overload and her fluid rate is decreased to 20 mL an hour. Gram-negative bacilli are found in her blood culture. Recent urine culture with Escherichia coli with some prior also with Pseudomonas. We'll maintain ceftazidime until final cultures available and then de-escalate antibiotic therapy at that time. 11/15/2017 patient has had some further improvement. She remains afebrile. Leukocytosis resolved. Acute renal failure is also resolved. She has evidence of Escherichia coli urinary tract infection with bacteremia. Responding well to current antibiotic therapy. However can be de-escalate it is ceftriaxone to complete 10 days for her bacteremic urinary infection. She has multiple ALLERGIES per the chart markedly limited the oral options for home. Current Visit: No Status: Acute Code(s): N39.0 - URINARY TRACT INFECTION, SITE NOT SPECIFIED SNOMED Code(s): 42454766 (6) Sepsis Current Visit: Yes Status: Acute Code(s): A41.9 - SEPSIS, UNSPECIFIED ORGANISM SNOMED Code(s): 08149677
[2017-11-16] MEDS: TOBRAMYCIN 0.3% OPHTH DROPS 5 ML BTL RIGHT EYE SCH ×6 (03:44→23:41)
[2017-11-16] MEDS: LEVOTHYROXINE 25 MCG TAB PO SCH (06:17)
[2017-11-16] MEDS: LOSARTAN 50 MG TAB PO SCH (08:09)
[2017-11-16] MEDS: MAGNESIUM OXIDE 400 MG TAB PO SCH (08:09)
[2017-11-16] MEDS: METOPROLOL TARTRATE 25 MG TAB PO SCH ×2 (08:09→17:45)
[2017-11-16] MEDS: FAMOTIDINE 20 MG TAB PO SCH (08:09)
[2017-11-16] MEDS: DOCUSATE 100 MG CAP PO SCH ×2 (08:10→17:45)
[2017-11-16] MEDS: BRIMONIDINE TARTRATE 0.2% DROPS 5 ML BTL RIGHT EYE SCH ×2 (08:11→17:45)
[2017-11-16] MEDS: DORZOLAMIDE HCL 2% DROPS 10 ML BTL BOTH EYES SCH ×2 (08:33→17:46)
[2017-11-16] MEDS: POTASSIUM CHLORIDE ER 10 MEQ TAB.ER.PRT PO SCH (08:33)
[2017-11-16] MEDS: SODIUM BICARBONATE TAB 650 MG TAB PO SCH ×2 (08:33→20:32)
[2017-11-16] MEDS: cefTRIAXone IN SWFI 1,000 MG/10 ML SYRINGE IVP SCH (08:56)
[2017-11-16 09:20] LABS: Anion Gap 7 mmol/L; Blood Urea Nitrogen 8 mg/dL (7-17); Calcium 8.6 mg/dL (8.4-10.2); Carbon Dioxide 24 mmol/L (22-30); Chloride 106 mmol/L (98-107); Glucose 122 mg/dL (74-99); Magnesium 1.9 mg/dL (1.6-2.3); Potassium 3.7 mmol/L (3.5-5.1); Sodium 137 mmol/L (137-145)
--- NOTE | 2017-11-16 11:03 | P.PN ---
Subjective Patient is seen in follow-up for acute kidney injury. Creatinine was 1.4 on admission and is down to 0.62 today. She is also been quite hypokalemic which has been replaced quite aggressively and is 3.7 today. Patient's on a full liquid diet and has not been eating much. She is currently resting in bed. She is not a very reliable historian. She was maintained on NSAIDs which have been discontinued. She is maintained on normal saline at 75 mL an hour. She is currently being treated for E. coli UTI. She is also noted to be bacteremic with blood cultures positive for E. coli. Vital signs are stable. General: The patient appeared well nourished and normally developed. HEENT: Head exam is unremarkable. Neck is without jugular venous distension. LUNGS: Lungs are clear to auscultation and percussion. Breath sounds decreased. HEART: Rate and Rhythm are regular. First and second heart sounds normal. No murmurs, rubs or gallops. ABDOMEN: Abdominal exam reveals normal bowel sounds. Non-tender and non- distended. No evidence of peritonitis. EXTREMITITES: No clubbing, cyanosis, or edema. Objective - Vital Signs Vital signs: Vital Signs Temp 97.4 F L 11/16/17 07:00 Pulse 90 11/16/17 07:00 Resp 24 11/16/17 07:00 BP 125/69 11/16/17 07:00 Pulse Ox 97 11/16/17 07:00 Intake & Output 11/15/17 11/16/17 11/16/17 18:59 06:59 18:59 Intake Total 600 825 Balance 600 825 Weight 81.647 kg Intake: IV 600 825 Sodium Chloride 0.9% 1, 600 825 000 ml @ 75 mls/hr IV . [id number] [facility] Rx#:[id number] Other: Voiding Method Diaper Diaper Incontinent Incontinent # Voids 2 4 # Bowel Movements 1 - Labs CBC & Chem 7: 11/11/17 03:24 11/16/17 08:23 Labs: Abnormal Lab Results - Last 24 Hours (Table) 11/16/17 Range/Units 08:23 Glucose 122 H (74-99) mg/dL Microbiology - Last 24 Hours (Table) 11/11/17 03:09 Blood Culture Gram Stain - Final Blood Blood Culture - Final Escherichia coli 11/11/17 03:24 Blood Culture - Preliminary Blood No Growth after 120 hours 11/10/17 15:10 Blood Culture - Preliminary Blood No Growth after 120 hours Assessment and Plan Plan: Assessment: #1. Nonoliguric acute kidney injury mostly prerenal resolved with IV hydration. Resolved. #2. Hypokalemia due to poor oral intake. Magnesium 1.8. Improved post replacement. #3. Metabolic acidosis secondary to IV fluids. Improved. #4. E. coli bacteremia and E. coli UTI maintained on antibiotics per infectious disease recommendations. Plan: Continue normal saline at 75 mL an hour. Avoid nephrotoxic agents and hypotensive episodes. Maintain sodium bicarb 650 mg twice daily. Repeat electrolytes in the morning.
--- NOTE | 2017-11-16 15:17 | P.DS ---
Providers Date of admission: 11/10/17 16:19 Expected date of discharge: 11/16/17 Attending physician: Polo Colvin Consults: 11/11/17 10:29 Consult Physician Routine Consulting Provider: Houston Bhakta Consult Reason/Comments: sepsis Do you want consulting provider notified?: Yes 11/11/17 14:56 Consult Physician Routine Consulting Provider: Valeria Loaiza Consult Reason/Comments: renal failure Do you want consulting provider notified?: Yes Primary care physician: Polo Jamison Hospital Course: Final diagnoses 1. Sepsis, secondary to complicated acute UTI and bacteremia with E. coli 2. Acute renal failure, resolved 3. Dementia 4. Hypokalemia secondary to poor oral intake 5. Metabolic acidosis secondary to IV fluids 6. Conjunctivitis, OD 7. Multiple sclerosis Hospital course: This is a 82-year-old female resident of [facility] admitted with fever, UTI, positive UA. Maintained on gentle IV fluid hydration and IV antibiotics. Evaluated by infectious disease and nephrology. Significant clinical improvement. PICC line placed. Patient has been cleared by infectious disease for discharge. Patient is being discharged to [facility] rehab in a stable condition with guarded prognosis. Microbiology 11/11/17 03:09 Blood Blood Culture Gram Stain - Final 11/11/17 03:09 Blood Blood Culture - Final Escherichia coli 11/11/17 03:24 Blood Blood Culture - Preliminary No Growth after 120 hours 11/10/17 15:10 Blood Blood Culture - Preliminary No Growth after 120 hours 11/11/17 03:09 Blood Blood Culture - Final 11/10/17 14:45 Urine,Catheterized Urine Culture - Final Physical exam:VSS, alert to person, no acute distress, LUNGS: Bilateral bases diminished, CV: Regular S1 and S2.ABD: Soft nontender, positive bowel sounds. Neuro: Higher levels of function as previously mentioned, alert to person, cooperative, follows simple commands, moves all extremities. The impression and plan of care has been dictated as directed. : I performed a history and examination of this patient, discussed the same with the dictator. I agree with the dictator's note ,documented as a scribe. Any additional findings or plans will be noted. Time taken: 35 minutes Patient Condition at Discharge: Stable Plan - Discharge Summary Discharge Rx Participant: No New Discharge Prescriptions: New cefTRIAXone [Rocephin] 1,000 mg IVPB Q24HR 10 Days #10 vial Sodium Bicarbonate Tab 650 mg PO BID tab Tobramycin 0.3% Ophth Soln [Tobrex 0.3% Ophth Soln] 2 drops RIGHT EYE Q4HR ml Continue Levothyroxine Sodium [Synthroid] 25 mcg PO DAILY Latanoprost Ophth [Xalatan 0.005%] 1 drop BOTH EYES HS Atorvastatin [Lipitor] 10 mg PO HS Docusate [Colace] 200 mg PO BID@0800,1700 Cholecalciferol [Vitamin D3] 2,000 unit PO DAILY Potassium Chloride [Klor-Con 10] 10 meq PO DAILY Ascorbic Acid [Vitamin C] 500 mg PO DAILY Magnesium Oxide [Magox 400] 400 mg PO DAILY Losartan [Cozaar] 50 mg PO QAM Psyllium Husk (with Sugar) [Metamucil Powder] 6 gm PO DAILY Pramipexole [Mirapex] 0.25 mg PO HS Rivaroxaban [Xarelto] 20 mg PO DAILY@1700 Calcium Carbonate [Tums] 1,000 mg PO AC-SUPPER Betaseron Kit 0.3mg 1 dose SQ Q48H Mirtazapine [Remeron] 15 mg PO HS Famotidine [Pepcid] 20 mg PO DAILY Cyanocobalamin [Vitamin B-12 Injection] 1,000 mcg SQ QMONTH Carboxymethyl/Gly/Poly80/Pf [Refresh Optive Elio-3 Drops] 1 dropper BOTH EYES DAILY PRN PRN Reason: Dry Eye(S) Magnesium Hydroxide [Milk of Magnesia] 2,400 mg PO ONCE PRN PRN Reason: Constipation Loratadine [Claritin] 10 mg PO DAILY PRN PRN Reason: Allergy Symptoms Na Phos,M-B/Na Phos,Di-Ba [Fleet Adult] 133 ml RECTAL ONCE PRN PRN Reason: Constipation Bisacodyl [Dulcolax] 10 mg RECTAL HS PRN PRN Reason: Constipation Acetaminophen Tab [Tylenol] 650 mg PO Q4H PRN PRN Reason: Pain Brinzolamide/Brimonidine Tart [Simbrinza 1%-0.2% Eye Drops] 1 drop RIGHT EYE BID@0800,1700 Metoprolol Tartrate [Lopressor] 25 mg PO BID@0800,1700 Lactose-Reduced Food [Ensure Plus] 120 ml PO BID@0800,1700 Cranberry Fruit Extract [Cranberry] 400 mg PO BID@0800,1700 Brinzolamide [Azopt 1% Ophth Susp] 1 drop BOTH EYES BID@0800,1700 Amoxicillin/Potassium Clav [Augmentin 875-125 Tablet] 1 tab PO Q12HR traMADol HCl [Ultram] 50 mg PO Q6H PRN #20 tab PRN Reason: Moderate Pain Discontinued Ibuprofen [Motrin] 800 mg PO Q6H PRN PRN Reason: Pain Or Fever > 100.5 Discharge Medication List Latanoprost Ophth [Xalatan 0.005%] 1 drop BOTH EYES HS 01/28/14 [History] Levothyroxine Sodium [Synthroid] 25 mcg PO DAILY 01/28/14 [History] Atorvastatin [Lipitor] 10 mg PO HS 07/30/14 [History] Docusate [Colace] 200 mg PO BID@0800,1700 11/14/14 [History] Cholecalciferol [Vitamin D3] 2,000 unit PO DAILY 12/11/15 [History] Potassium Chloride [Klor-Con 10] 10 meq PO DAILY 12/11/15 [History] Ascorbic Acid [Vitamin C] 500 mg PO DAILY 05/07/16 [History] Magnesium Oxide [Magox 400] 400 mg PO DAILY 05/07/16 [History] Betaseron Kit 0.3mg 1 dose SQ Q48H 06/09/16 [History] Calcium Carbonate [Tums] 1,000 mg PO AC-SUPPER 06/09/16 [History] Losartan [Cozaar] 50 mg PO QAM 06/09/16 [History] Pramipexole [Mirapex] 0.25 mg PO HS 06/09/16 [History] Psyllium Husk (with Sugar) [Metamucil Powder] 6 gm PO DAILY 06/09/16 [History] Rivaroxaban [Xarelto] 20 mg PO DAILY@1700 06/09/16 [History] Acetaminophen Tab [Tylenol] 650 mg PO Q4H PRN 11/10/17 [History] Amoxicillin/Potassium Clav [Augmentin 875-125 Tablet] 1 tab PO Q12HR 11/10/17 [ History] Bisacodyl [Dulcolax] 10 mg RECTAL HS PRN 11/10/17 [History] Brinzolamide [Azopt 1% Ophth Susp] 1 drop BOTH EYES BID@0800,1700 11/10/17 [ History] Brinzolamide/Brimonidine Tart [Simbrinza 1%-0.2% Eye Drops] 1 drop RIGHT EYE BID @0800,1700 11/10/17 [History] Carboxymethyl/Gly/Poly80/Pf [Refresh Optive Elio-3 Drops] 1 dropper BOTH EYES DAILY PRN 11/10/17 [History] Cranberry Fruit Extract [Cranberry] 400 mg PO BID@0800,1700 11/10/17 [History] Cyanocobalamin [Vitamin B-12 Injection] 1,000 mcg SQ QMONTH 11/10/17 [History] Famotidine [Pepcid] 20 mg PO DAILY 11/10/17 [History] Lactose-Reduced Food [Ensure Plus] 120 ml PO BID@0800,1700 11/10/17 [History] Loratadine [Claritin] 10 mg PO DAILY PRN 11/10/17 [History] Magnesium Hydroxide [Milk of Magnesia] 2,400 mg PO ONCE PRN 11/10/17 [History] Metoprolol Tartrate [Lopressor] 25 mg PO BID@0800,1700 11/10/17 [History] Mirtazapine [Remeron] 15 mg PO HS 11/10/17 [History] Na Phos,M-B/Na Phos,Di-Ba [Fleet Adult] 133 ml RECTAL ONCE PRN 11/10/17 [History ] cefTRIAXone [Rocephin] 1,000 mg IVPB Q24HR 10 Days #10 vial 11/15/17 [Rx] Sodium Bicarbonate Tab 650 mg PO BID tab 11/16/17 [Rx] Tobramycin 0.3% Ophth Soln [Tobrex 0.3% Ophth Soln] 2 drops RIGHT EYE Q4HR ml 11/16/17 [Rx] traMADol HCl [Ultram] 50 mg PO Q6H PRN #20 tab 11/16/17 [Rx] Follow up Appointment(s)/Referral(s): Polo Jamison MD [Primary Care Provider] - 3 Days Houston Bhakta MD [STAFF PHYSICIAN] - 2 Weeks Edison Feliz DO [STAFF PHYSICIAN] - 1 Week Ambulatory/Diagnostic Orders: Basic Metabolic Panel [LAB.AMB] Location: Determined By Patient Complete Blood Count w/diff [LAB.AMB] Location: Determined By Patient Activity/Diet/Wound Care/Special Instructions: [facility] CBC, BMP in 3 days Discharge Disposition: TRANSFER TO SNF/F
[2017-11-16] MEDS: SODIUM CHLORIDE 0.9% 1,000 ML IV SCH ×2 (15:21→20:54)
[2017-11-16 15:44] VITALS: RESP 16
--- NOTE | 2017-11-16 16:31 | CDI ---
Last Revision, August 2017 Documentation Clarification Form Date: 11/16/2017 4:13:00 PM From: Analia Lopez RN, CCDS Admit Date: 11/10/2017 4:19:00 PM Patient Name: Felicia Caruso Visit Number: [id number] ATTENTION: The Clinical Documentation Specialists (CDI) and [facility] Coding Staff appreciate your assistance in clarifying documentation. Please respond to the clarification below the line at the bottom and electronically sign. The CDI & [facility] Coding staff will review the response and follow-up if needed. Please note: Queries are made part of the Legal Health Record. If you have any questions, please contact the author of this message via ITS. Dr. Colvin Atrial fibrillation is documented in the PMH and requires further specificity. History/Risk Factors: AF, cancer, cva/tia, dementia, eye dementia, fibromyalgia, hyperlipemia, htn, oa , Clinical Indicators: EKG/telemetry: atrial fibrillation Treatment: Lopressor 25 mg PO BID Cozaar 50 mg po Q am Consults: Nephro In your professional opinion, can you please clarify the type of atrial fibrillation, if known? Chronic/Permanent Paroxysmal Persistent Other, please specify Unable to determine Please continue to document in your progress notes and discharge summary in order to capture severity of illness and risk of mortality. Include clinical findings that support your diagnosis. Chronic/Permanent MTDD
--- NOTE | 2017-11-16 18:40 | PN ---
PROGRESS NOTE DATE OF SERVICE: 11/16/2017 I am covering for Dr. Jamison. This 82-year-old woman was admitted with sepsis secondary to complicated acute TIA, is being scheduled to go to a ECF at this time. PICC line is being planned at this time. Otherwise the patient is closely monitored. The patient also had a chronic permanent atrial fibrillation. The patient is on broad-spectrum IV antibiotics at this time. IV Rocephin has been planned. PAST MEDICAL HISTORY: Reviewed. REVIEW OF SYSTEM: CARDIOVASCULAR: No angina. RESPIRATORY: As mentioned earlier. GI: No nausea. : No dysuria. NERVOUS SYSTEM: As mentioned earlier. CURRENT MEDICATIONS: Reviewed and include: 1. Tylenol 650 q.4h p.r.n. 2. Artificial Tears. 3. Lipitor 10 mg. 4. Percocet 10 mg p.r.n. 5. Brimonidine. 6. Rocephin 1 g IV daily. 7. Colace. 8. Trusopt. 9. Pepcid 20 mg b.i.d. 10.Xalatan eye drops. 11.Synthroid 25 mcg. 12.Claritin 10 mg. 13.Coenzyme. 14.Milk of magnesium. 15.Magnesium oxide. 16.Lopressor. 17.Remeron. 18.Imdur. 19.K-Dur. 20.Mirapex. 21.Sodium bicarb. 22.Tobrex. PHYSICAL EXAM: Patient is alert, oriented x3. Pulse 73, blood pressure 112/70, respiration 16, temperature 97 degrees, pulse ox 98% on 2 L. HEENT: Conjunctivae normal. NECK: No jugular venous distention. CARDIOVASCULAR: S1, S2. RESPIRATORY: Breath sounds diminished in the bases. A few scattered rhonchi and crackles. ABDOMEN: Soft, nontender. No mass palpable. LEGS: No edema. NERVOUS SYSTEM: Higher function as mentioned. Moves all four limbs. No focal motor deficits. LYMPHATIC: No lymphadenopathy in the neck, axillae, groin. SKIN: No ulcer, rash or bleeding. LABS: CBC: Platelets are 99, otherwise sodium 130, potassium 3.7. ASSESSMENT: 1. Sepsis secondary to complicated acute urinary tract infection with bacteremia with E coli. 2. Acute renal failure. 3. Possible prerenal multifactor. 4. Dementia. 5. Hypokalemia. 6. Metabolic acidosis. 7. Conjunctivitis. 8. Multiple sclerosis. 9. Hypokalemia. 10.History of cerebrovascular accident, transient ischemic attack. 11.Chronic permanent atrial fibrillation. 12.History of fibromyalgia. 13.History of degenerative joint disease. 14.NO CODE, NO CPR, NO VENT. 15.Thrombocytopenia. RECOMMENDATIONS AND DISCUSSION: In this 82-year-old woman who presented with multiple complex medical issues, will monitor the patient closely. Continue the current management and resume the home medications. I would recommend to continue with symptomatic treatment, antibiotics, PICC line. Possible ECF rehab. Resume the home medications and I would also recommend repeat labs. Further recommendations to follow. ALONSO / TANO: [id number] /
[2017-11-16] MEDS: LATANOPROST 0.005% OPHTH DROPS 2.5 ML BTL BOTH EYES SCH (20:31)
[2017-11-16] MEDS: PRAMIPEXOLE 0.25 MG TAB PO SCH (20:31)
[2017-11-16] MEDS: ATORVASTATIN 10 MG TAB PO SCH (20:31)
[2017-11-16] MEDS: MIRTAZAPINE 15 MG TAB PO SCH (20:32)
--- NOTE | 2017-11-16 21:58 | P.PN ---
Subjective Progress Note Date: 11/16/17 Principal diagnosis: Sepsis 82-year-old female who has multiple hospitalizations over the last several years related to bouts of sepsis likely from urinary tract infection. The patient's family is present. The patient has progressive dementia and is cared for the local extended care facility. Apparently she started to have some decreasing mental status and some fever because he was transported to hospital admission been treated with some oral antibiotic therapy with no improvement. Because of ongoing concerns of sepsis the infectious diseases was requested. The family relates that before admission she was not having nausea or emesis but was having poor appetite. She appeared to have no respiratory difficulties. Do not believe that she is not and diarrhea. There is no evidence of any hematemesis melena or hematochezia. No new Skin lesions appreciated 11/14/2017 patient is doing considerably better. Mentation is improved today. Appetite is improved. Ingested approximately 40% of her dinner. Daughter voices concerns about adequate blood sugar control given her CBT 1 deficiency. With patient's marked improvement this evening likely starting to have a nice response to the treatment of her gram-negative sepsis from urinary system. Was having some difficulty earlier and fluids have been decreased to 20 mL an hour. 11/15/2017 is not the patient is improved but continues to have poor mentation. Bit of fluid overload has resolved. Nursing relates she's ingested more food today. 11/16/2017 patient's volume overload is improved. Mentation remains poor. No other new acute complaints. Await the IV access for her discharge. Objective - Vital Signs Vital signs: Vital Signs Temp 97.0 F L 11/16/17 15:00 Pulse 73 11/16/17 16:00 Resp 16 11/16/17 16:00 BP 112/73 11/16/17 15:00 Pulse Ox 96 11/16/17 15:00 Intake & Output 11/16/17 11/16/17 11/17/17 06:59 18:59 06:59 Intake Total 825 400 Balance 825 400 Intake: IV 825 Sodium Chloride 0.9% 1, 825 000 ml @ 75 mls/hr IV . [id number] [facility] Rx#:[id number] Oral 400 Other: Voiding Method Diaper Diaper Incontinent Incontinent # Voids 4 4 - Exam 82-year-old female with advanced dementia but seems to be comfortable HEENT: Anicteric conjunctiva are pink and moist nasal mucosa grossly intact without significant lesions, there is no thrush. Dentition Neck: The neck without stiffness, no palpable thyromegaly or mass Lungs: Symmetrical air entry was noted with few basilar crackles no significant bronchial sounds no dullness or egophony Heart: Irregular with a positive S4 no murmur click or rub Abdomen: Positive bowel sounds soft and nontender without palpable masses or organomegaly. There was no guarding or rebound. Extremities: The upper and lower extremities have some wasting and spasticity but no significant ulcerations are seen pulses are 2+ and symmetric Neuro: Patient is awake but provides no history Skin is without erythema or breakdown - Labs CBC & Chem 7: 11/11/17 03:24 11/16/17 08:23 Labs: Abnormal Lab Results - Last 24 Hours (Table) 11/16/17 Range/Units 08:23 Glucose 122 H (74-99) mg/dL Microbiology - Last 24 Hours (Table) 11/10/17 15:10 Blood Culture - Final Blood No Growth after 144 hours 11/11/17 03:09 Blood Culture Gram Stain - Final Blood Blood Culture - Final Escherichia coli 11/11/17 03:24 Blood Culture - Preliminary Blood No Growth after 120 hours Laboratory Results WBC 7.4 k/uL (3.8-10.6) 11/11/17 03:24 RBC 3.96 m/uL (3.80-5.40) 11/11/17 03:24 Hgb 11.4 gm/dL (11.4-16.0) 11/11/17 03:24 Hct 36.1 % (34.0-46.0) 11/11/17 03:24 MCV 91.2 fL (80.0-100.0) 11/11/17 03:24 MCH 28.8 pg (25.0-35.0) 11/11/17 03:24 MCHC 31.6 g/dL (31.0-37.0) 11/11/17 03:24 RDW 13.6 % (11.5-15.5) 11/11/17 03:24 Plt Count 99 k/uL (150-450) L 11/11/17 03:24 Neutrophils % 87 % 11/11/17 03:24 Lymphocytes % 6 % 11/11/17 03:24 Monocytes % 4 % 11/11/17 03:24 Eosinophils % 0 % 11/11/17 03:24 Basophils % 0 % 11/11/17 03:24 Neutrophils # 6.4 k/uL (1.3-7.7) 11/11/17 03:24 Lymphocytes # 0.5 k/uL (1.0-4.8) L 11/11/17 03:24 Monocytes # 0.3 k/uL (0-1.0) 11/11/17 03:24 Eosinophils # 0.0 k/uL (0-0.7) 11/11/17 03:24 Basophils # 0.0 k/uL (0-0.2) 11/11/17 03:24 Manual Slide Review Performed 11/11/17 03:24 Hypochromasia Slight 11/11/17 03:24 PT 10.2 sec (9.0-12.0) 11/10/17 15:10 INR 1.0 (<1.2) 11/10/17 15:10 APTT 32.2 sec (22.0-30.0) H 11/10/17 15:10 Sodium 137 mmol/L (137-145) 11/16/17 08:23 Potassium 3.7 mmol/L (3.5-5.1) 11/16/17 08:23 Chloride 106 mmol/L (98-107) 11/16/17 08:23 Carbon Dioxide 24 mmol/L (22-30) 11/16/17 08:23 Anion Gap 7 mmol/L 11/16/17 08:23 BUN 8 mg/dL (7-17) 11/16/17 08:23 Creatinine 0.62 mg/dL (0.52-1.04) 11/16/17 08:23 Est GFR (MDRD) Af Amer >60 (>60 ml/min/1.73 sqM) 11/16/17 08:23 Est GFR (MDRD) Non-Af >60 (>60 ml/min/1.73 sqM) 11/16/17 08:23 Glucose 122 mg/dL (74-99) H 11/16/17 08:23 POC Glucose (mg/dL) 84 mg/dL (75-99) 11/11/17 13:15 POC Glu [employer] Management Associate [employer] Rochelle Welch 11/11/17 13:15 Plasma Lactic Acid Rayshawn 1.5 mmol/L (0.7-2.0) 11/10/17 15:10 Calcium 8.6 mg/dL (8.4-10.2) 11/16/17 08:23 Magnesium 1.9 mg/dL (1.6-2.3) 11/16/17 08:23 Total Bilirubin 0.5 mg/dL (0.2-1.3) 11/10/17 15:10 AST 27 U/L (14-36) 11/10/17 15:10 ALT 29 U/L (9-52) 11/10/17 15:10 Alkaline Phosphatase 95 U/L (38-126) 11/10/17 15:10 Total Protein 5.3 g/dL (6.3-8.2) L 11/10/17 15:10 Albumin 2.6 g/dL (3.5-5.0) L 11/10/17 15:10 TSH 2.100 mIU/L (0.465-4.680) 11/10/17 15:10 Urine Color Yellow 11/10/17 14:45 Urine Appearance Cloudy (Clear) H 11/10/17 14:45 Urine pH 6.5 (5.0-8.0) 11/10/17 14:45 Ur Specific [place] 1.014 (1.001-1.035) 11/10/17 14:45 Urine Protein 2+ (Negative) H 11/10/17 14:45 Urine Glucose (UA) Negative (Negative) 11/10/17 14:45 Urine Ketones Negative (Negative) 11/10/17 14:45 Urine Blood Large (Negative) H 11/10/17 14:45 Urine Nitrite Negative (Negative) 11/10/17 14:45 Urine Bilirubin Negative (Negative) 11/10/17 14:45 Urine Urobilinogen <2.0 mg/dL (<2.0) 11/10/17 14:45 Ur Leukocyte Esterase Large (Negative) H 11/10/17 14:45 Urine RBC >182 /hpf (0-5) H 11/10/17 14:45 Urine WBC 176 /hpf (0-5) H 11/10/17 14:45 Urine WBC Clumps Many /hpf (None) H 11/10/17 14:45 Urine Bacteria Rare /hpf (None) H 11/10/17 14:45 Influenza Type A RNA Not Detected (Not Detectd) 11/10/17 15:10 Influenza Type B (PCR) Not Detected (Not Detectd) 11/10/17 15:10 Microbiology 11/10/17 15:10 Blood Blood Culture - Final No Growth after 144 hours 11/11/17 03:09 Blood Blood Culture Gram Stain - Final 11/11/17 03:09 Blood Blood Culture - Final Escherichia coli 11/11/17 03:24 Blood Blood Culture - Preliminary No Growth after 120 hours 11/11/17 03:09 Blood Blood Culture - Final 11/10/17 14:45 Urine,Catheterized Urine Culture - Final Assessment and Plan (1) Fever Current Visit: Yes Status: Acute Code(s): R50.9 - FEVER, UNSPECIFIED SNOMED Code(s): 210649686 (2) Leukocytosis Current Visit: Yes Status: Acute Code(s): D72.829 - ELEVATED WHITE BLOOD CELL COUNT, UNSPECIFIED SNOMED Code(s): 133115671 (3) Dementia Current Visit: No Status: Acute Code(s): F03.90 - UNSPECIFIED DEMENTIA WITHOUT BEHAVIORAL DISTURBANCE SNOMED Code(s): 62559792 (4) Multiple sclerosis Current Visit: No Status: Acute Code(s): G35 - MULTIPLE SCLEROSIS SNOMED Code(s): 66027498 (5) UTI (urinary tract infection) Narrative/Plan: 82-year-old female is brought from the extended care facility with worsening of her status with fever 104.2 as well as decreased mental status. With this she was brought to hospital and receiving fluid resuscitation and at the time of the consult being called prior cultures reviewed and antibiotic therapy was initiated with ceftazidime ensure that the prior isolated Morganella and pseudomonas aeruginosa are being treated. Current cultures are pending. Blood cultures are pending. Leukocytosis is noted. She does have evidence of some anemia but is not profound. Current urinalysis does show evidence of many bacteria many white cells and gram-negative bacilli. For now supportive care continue rehydration to help with her acute renal failure. She will be positioned in ongoing basis to prevent pressure ulcerations and may need heel pads to protect her. nutrition as per the primary care service but will need supplementation given her evidence of some protein calorie malnutrition. The data is reviewed and she appears to have an appropriate CODE STATUS. On 11/14/2017 patient is showing some improvement. Nutritional status is improving which is likely helping her mental status. Appears to have volume overload and her fluid rate is decreased to 20 mL an hour. Gram-negative bacilli are found in her blood culture. Recent urine culture with Escherichia coli with some prior also with Pseudomonas. We'll maintain ceftazidime until final cultures available and then de-escalate antibiotic therapy at that time. 11/15/2017 patient has had some further improvement. She remains afebrile. Leukocytosis resolved. Acute renal failure is also resolved. She has evidence of Escherichia coli urinary tract infection with bacteremia. Responding well to current antibiotic therapy. However can be de-escalate to ceftriaxone to complete 10 days for her bacteremic urinary infection. She has multiple ALLERGIES per the chart markedly limited the oral options for home. 11/16/2017 patient is having some improvement. Has been eating a bit better for the . Tolerating antibiotic therapy well. Plan will be for a midline catheter be placed so she may receive her ceftriaxone to complete the 10 days of her antibiotics for the treatment of her bacteremic E. coli urinary tract infection. Current Visit: No Status: Acute Code(s): N39.0 - URINARY TRACT INFECTION, SITE NOT SPECIFIED SNOMED Code(s): 97732781 (6) Sepsis Current Visit: Yes Status: Acute Code(s): A41.9 - SEPSIS, UNSPECIFIED ORGANISM SNOMED Code(s): 47260550
[2017-11-17] MEDS: TOBRAMYCIN 0.3% OPHTH DROPS 5 ML BTL RIGHT EYE SCH ×3 (03:39→11:57)
[2017-11-17] MEDS: LEVOTHYROXINE 25 MCG TAB PO SCH (06:08)
[2017-11-17 07:46] LABS: Basophils % (A) 0 %; Eosinophils # (A) 0.3 k/uL (0-0.7); Eosinophils % (A) 4 %; HCT 31.4 % (34.0-46.0); Lymphocytes # (A) 1.7 k/uL (1.0-4.8); Lymphocytes % (A) 17 %; MCH 28.6 pg (25.0-35.0); MCV 89.6 fL (80.0-100.0); Mean Platelet Volume 7.9; Monocytes # (A) 0.4 k/uL (0-1.0); Monocytes % (A) 4 %; Neutrophils # (A) 7.1 k/uL (1.3-7.7); Neutrophils % (A) 74 %; RBC 3.51 m/uL (3.80-5.40); RDW 14.2 % (11.5-15.5); WBC 9.7 k/uL (3.8-10.6)
[2017-11-17 08:00] VITALS: BP 137/84; PULSE 83; TEMP 97.6
[2017-11-17 08:14] LABS: Anion Gap 6 mmol/L; Blood Urea Nitrogen 9 mg/dL (7-17); Calcium 8.8 mg/dL (8.4-10.2); Carbon Dioxide 24 mmol/L (22-30); Chloride 106 mmol/L (98-107); Glucose 88 mg/dL (74-99); Magnesium 1.9 mg/dL (1.6-2.3); Potassium 3.8 mmol/L (3.5-5.1); Sodium 136 mmol/L (137-145)
[2017-11-17 08:36] LABS: Platelet Count 182 k/uL (150-450)
[2017-11-17] MEDS: DORZOLAMIDE HCL 2% DROPS 10 ML BTL BOTH EYES SCH (08:44)
[2017-11-17] MEDS: SODIUM BICARBONATE TAB 650 MG TAB PO SCH (08:45)
[2017-11-17] MEDS: FAMOTIDINE 20 MG TAB PO SCH (08:45)
[2017-11-17] MEDS: BRIMONIDINE TARTRATE 0.2% DROPS 5 ML BTL RIGHT EYE SCH (08:45)
[2017-11-17] MEDS: cefTRIAXone IN SWFI 1,000 MG/10 ML SYRINGE IVP SCH (08:46)
[2017-11-17] MEDS: METOPROLOL TARTRATE 25 MG TAB PO SCH (08:46)
[2017-11-17] MEDS: DOCUSATE 100 MG CAP PO SCH (08:46)
[2017-11-17] MEDS: SODIUM CHLORIDE 0.9% 1,000 ML IV SCH (08:46)
[2017-11-17] MEDS: POTASSIUM CHLORIDE ER 10 MEQ TAB.ER.PRT PO SCH (08:47)
[2017-11-17] MEDS: MAGNESIUM OXIDE 400 MG TAB PO SCH (08:47)
[2017-11-17] MEDS: LOSARTAN 50 MG TAB PO SCH (08:47)
[2017-11-17] MEDS: BETASERON 0.3 MG SQ SCH (08:47)
[2017-11-17] MEDS ORDERED: ASCORBIC ACID 500 MG TAB PO SCH (09:00)
[2017-11-17] MEDS ORDERED: CHOLECALCIFEROL 1,000 UNIT TAB PO SCH (09:00)
[2017-11-17] MEDS ORDERED: RIVAROXABAN 10 MG TAB PO SCH (17:30)
[2017-11-17] MEDS ORDERED: CALCIUM CARBONATE 500 MG CHEWABLE PO SCH (17:30)
[2017-11-17] MEDS ORDERED: RIVAROXABAN 20 MG TAB PO SCH (17:30)
--- NOTE | 2017-11-24 12:13 | DS ---
DISCHARGE SUMMARY DATE OF DISCHARGE: 11/17/17. CHIEF COMPLAINT: Fever and mental status changes. HISTORY OF PRESENT ILLNESS AND PHYSICAL EXAM: Details of this lady's history and physical can be found in the initial workup. LABORATORY STUDIES: While she was in a hospital she had laboratory studies details which can be found in the laboratory section of her chart. COURSE IN HOSPITAL: After admission she was placed on bedrest, started on intravenous fluids and IV antibiotics. She did have one positive blood culture. With the IV antibiotics and fluids, she improved and became a little bit more awake and alert and was felt that she was back to her usual baseline and she was transferred back to [facility] on the twenty second. FINAL DIAGNOSES: 1. Urinary tract infection. 2. Multiple sclerosis. 3. Amblyopia. OPERATIONS: None. CONSULTATIONS: Infectious Disease. She is improved. MMODL / RUIBAN: [id number] /
== END 2017-11-17 12:10 | DRG 872 ==
LOC: EC 14:33 → 4MS4W 16:19 → 5MS5E 17:42
PROVIDERS: ADMIT Family Medicine; ATTEND Family Medicine
PROC: 05HY33Z Insertion of Infusion Device into Upper Vein, Percutaneous Approach (ICD-10-PCS; principal; 2017-11-17 08:30)
DX: A41.51 Sepsis due to Escherichia coli [E. coli] (principal); N17.9 Acute kidney failure, unspecified; E87.2 Acidosis; E87.70 Fluid overload, unspecified; D69.6 Thrombocytopenia, unspecified; E44.1 Mild protein-calorie malnutrition; G35 Multiple sclerosis; I48.2 Chronic atrial fibrillation; Q79.6 Ehlers-Danlos syndromes; N39.0 Urinary tract infection, site not specified; D64.9 Anemia, unspecified; E03.9 Hypothyroidism, unspecified; E78.5 Hyperlipidemia, unspecified; E86.0 Dehydration; F03.90 Unspecified dementia, unspecified severity, without behavioral disturbance, psychotic disturbance, mood disturbance, and anxiety; I69.898 Other sequelae of other cerebrovascular disease; E87.6 Hypokalemia; H10.9 Unspecified conjunctivitis; M21.371 Foot drop, right foot; R51 Headache; I10 Essential (primary) hypertension; H40.9 Unspecified glaucoma; H54.8 Legal blindness, as defined in USA; M19.91 Primary osteoarthritis, unspecified site; H53.009 Unspecified amblyopia, unspecified eye; M79.7 Fibromyalgia; Z68.30 Body mass index [BMI] 30.0-30.9, adult; Z79.01 Long term (current) use of anticoagulants; Z79.899 Other long term (current) drug therapy; Z87.81 Personal history of (healed) traumatic fracture; Z86.19 Personal history of other infectious and parasitic diseases; Z90.49 Acquired absence of other specified parts of digestive tract; Z90.710 Acquired absence of both cervix and uterus; Z96.642 Presence of left artificial hip joint; Z98.42 Cataract extraction status, left eye; Z98.41 Cataract extraction status, right eye; Z95.0 Presence of cardiac pacemaker; Z87.891 Personal history of nicotine dependence; Z88.6 Allergy status to analgesic agent; Z88.1 Allergy status to other antibiotic agents; Z88.5 Allergy status to narcotic agent; Z88.2 Allergy status to sulfonamides; Z88.8 Allergy status to other drugs, medicaments and biological substances; Z91.048 Other nonmedicinal substance allergy status
CPT/HCPCS: 00000; 36415; 71045; 80048; 80053; 81001; 83605; 83735; 84132; 84443; 85025; 85610; 85730; 87040; 87077; 87086; 87186; 87502; 93005; 96365; 96366; 96367; 99285

== ENCOUNTER 2017-12-31 09:58 | Inpatient (IN) | payer MEDICARE, BC ==
[2017-12-31 10:31] LABS: Basophils % (A) 0 %; Eosinophils # (A) 0.1 k/uL (0-0.7); Eosinophils % (A) 1 %; HCT 32.4 % (34.0-46.0); HGB 10.7 gm/dL (11.4-16.0); Lymphocytes # (A) 0.9 k/uL (1.0-4.8); Lymphocytes % (A) 9 %; MCH 28.6 pg (25.0-35.0); MCV 86.5 fL (80.0-100.0); Mean Platelet Volume 7.5; Monocytes # (A) 0.7 k/uL (0-1.0); Monocytes % (A) 7 %; Neutrophils # (A) 8.1 k/uL (1.3-7.7); Neutrophils % (A) 81 %; Platelet Count 201 k/uL (150-450); RBC 3.74 m/uL (3.80-5.40); RDW 13.9 % (11.5-15.5)
[2017-12-31 10:41] LABS: Albumin 2.7 g/dL (3.5-5.0); Calcium 9.5 mg/dL (8.4-10.2); Potassium 3.9 mmol/L (3.5-5.1); Total Bilirubin 0.4 mg/dL (0.2-1.3); Total Protein 5.6 g/dL (6.3-8.2)
[2017-12-31 10:50] LABS: Appearance,Urine Clear (Clear); Bacteria,Urine Rare /hpf; Bilirubin,Urine Negative (Negative); Blood,Urine Small (Negative); Color,Urine Light Red; Glucose,Urine (UA) Negative (Negative); Ketones,Urine Negative (Negative); Leukocyte Esterase,Urine Moderate (Negative); Mucus,Urine Rare /hpf; Nitrite,Urine Negative (Negative); PH, Urine 6.5 (5.0-8.0); Protein,Urine 2+ (Negative); RBC,Urine 4 /hpf (0-5); Specific Gravity,Urine 1.019 (1.001-1.035); Urobilinogen,Urine <2.0 mg/dL (<2.0); WBC,Urine 17 /hpf (0-5)
--- NOTE | 2017-12-31 11:04 | XR ---
EXAMINATION TYPE: XR chest 2V DATE OF EXAM: 12/31/2017 HISTORY: fever. REFERENCE: Previous study dated 11/14/2017. FINDINGS: There is a bipolar pacemaker in place on the left. The lungs are clear. Pleural space are clear. Heart size is upper limits of normal. I could not exclu de a hiatal hernia present behind the heart. Note is made of previous rotator cuff repair in both shoulders. IMPRESSION: 1. NO ACUTE INTRATHORACIC ABNORMALITY. 2. I COULD NOT EXCLUDE A HIATAL HERNIA BEHIND THE HEART.
--- NOTE | 2017-12-31 12:34 | CT ---
EXAMINATION TYPE: CT brain wo con DATE OF EXAM: 12/31/2017 COMPARISON: Previous study dated 12/15/2015. HISTORY: Lethargy CT DLP: 1115.1 mGycm Automated exposure control for dose reduction was used. FINDINGS: There are generalized changes of sulcal prominence and ventriculomegaly, compatible with atrophic giorgio nge. There is diffuse periventricular white matter lucency, compatible with chronic white matter isch emic change. There is no acute focal lesion, mass effect or midline shift identified. I do not see ev idence of intracranial blood. There are vascular calcifications present. The orbits are unremarkable. Visualized portions of the paranasal sinuses and mastoids are clear. The bony calvarium is intact. IMPRESSION: 1. NO ACUTE INTRACRANIAL ABNORMALITY. 2. ATROPHIC CHANGE. 3. CHRONIC WHITE MATTER ISCHEMIC CHANGE.
[2017-12-31] MEDS ORDERED: NALOXONE 0.4 MG/ML 1 ML VIAL IV PRN (14:13)
--- NOTE | 2017-12-31 14:20 | ED ---
General Adult HPI - General Chief complaint: Fever Stated complaint: Lethargy Time Seen by Provider: 12/31/17 10:02 Source: patient, family, EMS, RN notes reviewed Mode of arrival: EMS Limitations: altered mental status - History of Present Illness Initial comments: 82-year-old female presenting from shelter with altered mental status and UTI. Patient has been treated for UTI over the past several days, she is currently on Macrobid and Rocephin. According to shelter staff, her blood pressure has been stable but down trending. She is also been febrile. According to the patient's who is at bedside she is also had some worsening confusion. No history of nausea vomiting or diarrhea. No history of cough or URI symptoms. - Related Data Home Medications Medication Instructions Recorded Confirmed Latanoprost Ophth [Xalatan 0.005%] 1 drop BOTH EYES HS 01/28/14 12/31/17 Levothyroxine Sodium [Synthroid] 25 mcg PO DAILY 01/28/14 12/31/17 Atorvastatin [Lipitor] 10 mg PO HS 07/30/14 12/31/17 Docusate [Colace] 200 mg PO BID@0800,1700 11/14/14 12/31/17 Cholecalciferol [Vitamin D3] 2,000 unit PO DAILY@1200 12/11/15 12/31/17 Potassium Chloride [Klor-Con 10] 10 meq PO DAILY@1700 12/11/15 12/31/17 Ascorbic Acid [Vitamin C] 500 mg PO DAILY@1200 05/07/16 12/31/17 Magnesium Oxide [Magox 400] 400 mg PO DAILY@1200 05/07/16 12/31/17 Betaseron Kit 0.3mg 1 dose SQ Q48H 06/09/16 12/31/17 Calcium Carbonate [Tums] 1,000 mg PO DAILY@1700 06/09/16 12/31/17 Losartan [Cozaar] 50 mg PO QAM 06/09/16 12/31/17 Pramipexole [Mirapex] 0.25 mg PO HS 06/09/16 12/31/17 Psyllium Husk (with Sugar) 6 gm PO DAILY@1200 06/09/16 12/31/17 [Metamucil Powder] Rivaroxaban [Xarelto] 20 mg PO DAILY@1700 06/09/16 12/31/17 Acetaminophen Tab [Tylenol] 325 mg PO Q6H PRN 11/10/17 12/31/17 Bisacodyl [Dulcolax] 10 mg RECTAL DAILY PRN 11/10/17 12/31/17 Brinzolamide [Azopt 1% Ophth Susp] 1 drop BOTH EYES BID@0800,1700 11/10/1712/31 Brinzolamide/Brimonidine Tart 1 drop RIGHT EYE BID@0800,1700 11/10/17 12/31/17 [Simbrinza 1%-0.2% Eye Drops] Carboxymethyl/Gly/Poly80/Pf 1 dropper BOTH EYES DAILY PRN 11/10/17 12/31/17 [Refresh Optive Elio-3 Drops] Famotidine [Pepcid] 20 mg PO DAILY 11/10/17 12/31/17 Loratadine [Claritin] 10 mg PO DAILY PRN 11/10/17 12/31/17 Magnesium Hydroxide [Milk of 2,400 mg PO ONCE PRN 11/10/17 12/31/17 Magnesia] Metoprolol Tartrate [Lopressor] 25 mg PO BID@0800,1700 11/10/17 12/31/17 Mirtazapine [Remeron] 15 mg PO HS 11/10/17 12/31/17 Na Phos,M-B/Na Phos,Di-Ba [Fleet 133 ml RECTAL ONCE PRN 11/10/17 12/31/17 Adult] Cranberry Juice Extract 425mg 425 mg PO BID@0800,169912/31/17 12/31/17 Lactose-Reduced Food [Ensure Plus] 120 ml PO BID@0800,1700 12/31/17 12/31/17 Nitrofurantoin Monohyd/M-Cryst 100 mg PO BID@0800,0 12/31/17 12/31/17 [Macrobid] Sodium Bicarbonate Tab 650 mg PO BID@0800,1700 12/31/17 12/31/17 cefTRIAXone [Rocephin] 1,000 mg IVPB DAILY 12/31/17 12/31/17 Allergies Allergy/AdvReac Type Severity Reaction Status Date / Time acetaminophen [From Tylenol] Allergy Rash/Hives Verified 12/31/17 11:31 codeine Allergy Rash/Hives Verified 12/31/17 11:31 epinephrine Allergy Unknown Verified 12/31/17 11:31 sulfacetamide sodium Allergy Rash/Hives Verified 12/31/17 11:31 [From Sulfamide] adhesive AdvReac Unknown Verified 12/31/17 11:31 ciprofloxacin [From Cipro] AdvReac Unknown Verified 12/31/17 11:31 ciprofloxacin HCl AdvReac Unknown Verified 12/31/17 11:31 [From Cipro] oxycodone HCl [From Percocet] AdvReac Unknown Verified 12/31/17 11:31 prednisone AdvReac Unknown Verified 12/31/17 11:31 Sulfa (Sulfonamide AdvReac Nausea & Verified 12/31/17 11:31 Antibiotics) Vomiting Review of Systems ROS Statement: Those systems with pertinent positive or pertinent negative responses have been documented in the HPI. ROS Other: All systems not noted in ROS Statement are negative. 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 FX LT HIP. 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 History of Any Multi-Drug Resistant Organisms: VRE Date of last positivie culture/infection: 06/09/16 MDRO Source:: Urine Past Surgical History: Breast Surgery, Cholecystectomy, Heart Catheterization, Hysterectomy, Orthopedic Surgery, Pacemaker Additional Past Surgical History / Comment(s): LT HIP CEMENTED UNIPOLAR HEMIARTHROPLASTY cardiac cath-normal, L AND R ROTATOR CUFF with R done twice, L BREAST PARTIAL MASTECTOMY(CYTOSCARCONA PHYLLODES) THEN RECONSTRUCTION, R BREAST REDUCTION, R EYE ANEURYSM- LASER, L KNEE ARTHROSCOPY, L FOOT SURGERY, R AND L CATARACT SURGERY, GENE MUSTAFA PACEMAKER in January [address] Shell see paper chart for emergency info on pacemaker.CYSTOCELE REPAIR, GETS INJECTIONS IN EYES AND SHOULDER, colonoscopy 2012, capsulotomy-Yag laser 2014. Past Anesthesia/Blood Transfusion Reactions: Previous Problems w/ Anesthesia, Postoperative Nausea & Vomiting (PONV) Additional Past Anesthesia/Blood Transfusion Reaction / Comment(s): LOCAL- VOMITING AND SEIZURE hx long time waking up from anesthesia no epi in local anesthesia!!! Type of Cardiac Device: Permanent Pacemaker Device Placement Date:: 01/30/13 Past Psychological History: Anxiety Smoking Status: Former smoker - Past Family History Mother Family Medical History: Coronary Artery Disease (CAD) Father Family Medical History: Coronary Artery Disease (CAD), Myocardial Infarction ([place] ) Additional Family Medical History / Comment(s): mother and father-cardiac General Exam Limitations: altered mental status General appearance: in no apparent distress, lethargic Head exam: Present: atraumatic, normocephalic Eye exam: Absent: PERRL (Right pupil 3 mm, left pupil 5 mm), EOMI (Patient has left gaze deviation) ENT exam: Present: mucous membranes dry Neck exam: Present: normal inspection. Absent: tenderness, meningismus Respiratory exam: Present: rhonchi (Rhonchi bilaterally likely transmitted upper airway noises). Absent: respiratory distress Cardiovascular Exam: Present: regular rate, normal rhythm GI/Abdominal exam: Present: soft. Absent: distended, tenderness Extremities exam: Present: normal inspection, full ROM, normal capillary refill. Absent: pedal edema Neurological exam: Present: alert. Absent: oriented X3, motor sensory deficit Skin exam: Present: warm, dry, intact Course Vital Signs 12/31/17 12/31/17 10:00 11:37 Temperature 99.3 F Pulse Rate 75 77 Respiratory 16 16 Rate Blood Pressure 147/69 160/70 O2 Sat by Pulse 97 96 Oximetry EKG Findings - EKG Comments: EKG Findings:: EKG, normal sinus rhythm, LVH, ventricular rate of 72, AZ interval 180, QRS duration 84, QTC 435, no ST segment elevation or depression Medical Decision Making - Medical Decision Making 82-year-old female presents with her mental status and concern for failing outpatient treatment of urinary tract infection. Patient does have abnormal gaze and abnormal pupillary exam. Uncertain if this is her baseline. states she has been somewhat more confused since the diagnosis of a urinary tract infection several days ago. Laboratory studies are obtained, normal white blood cell count 10.0, hemoglobin 10.9, electrolytes are normal. Patient does have 17 wbc's on urinalysis, this may be partially treated UTI. Chest x- ray negative for pneumonia. CT the head is obtained for gaze deviation and pupil exam, this is negative for intracranial hemorrhage or mass effect. Influenza is negative. Case discussed with Dr. Jamison, it is decided the patient will be admitted for further evaluation of her altered mental status. Dr. Henriquez will be placed on consult. - Lab Data Result diagrams: 12/31/17 10:20 12/31/17 10:20 Lab Results 12/31/17 12/31/17 12/31/17 Range/Units 10:20 10:20 10:20 WBC 10.0 (3.8-10.6) k/uL RBC 3.74 L (3.80-5.40) m/uL Hgb 10.7 L (11.4-16.0) gm/dL Hct 32.4 L (34.0-46.0) % MCV 86.5 (80.0-100.0) fL MCH 28.6 (25.0-35.0) pg MCHC 33.0 (31.0-37.0) g/dL RDW 13.9 (11.5-15.5) % Plt Count 201 (150-450) k/uL Neutrophils % 81 % Lymphocytes % 9 % Monocytes % 7 % Eosinophils % 1 % Basophils % 0 % Neutrophils # 8.1 H (1.3-7.7) k/uL Lymphocytes # 0.9 L (1.0-4.8) k/uL Monocytes # 0.7 (0-1.0) k/uL Eosinophils # 0.1 (0-0.7) k/uL Basophils # 0.0 (0-0.2) k/uL Sodium 143 (137-145) mmol/L Potassium 3.9 (3.5-5.1) mmol/L Chloride 108 H (98-107) mmol/L Carbon Dioxide 25 (22-30) mmol/L Anion Gap 10 mmol/L BUN 26 H (7-17) mg/dL Creatinine 0.90 (0.52-1.04) mg/dL Est GFR (CKD-EPI)AfAm 70 (>60 ml/min/1.73 sqM) Est GFR (CKD-EPI)NonAf 61 (>60 ml/min/1.73 sqM) Glucose 109 H (74-99) mg/dL Plasma Lactic Acid Rayshawn (0.7-2.0) mmol/L Calcium 9.5 (8.4-10.2) mg/dL Total Bilirubin 0.4 (0.2-1.3) mg/dL AST 19 (14-36) U/L ALT 24 (9-52) U/L Alkaline Phosphatase 71 (38-126) U/L Total Protein 5.6 L (6.3-8.2) g/dL Albumin 2.7 L (3.5-5.0) g/dL Urine Color Urine Appearance (Clear) Urine pH (5.0-8.0) Ur Specific [place] (1.001-1.035) Urine Protein (Negative) Urine Glucose (UA) (Negative) Urine Ketones (Negative) Urine Blood (Negative) Urine Nitrite (Negative) Urine Bilirubin (Negative) Urine Urobilinogen (<2.0) mg/dL Ur Leukocyte Esterase (Negative) Urine RBC (0-5) /hpf Urine WBC (0-5) /hpf Urine Bacteria (None) /hpf Urine Mucus (None) /hpf Influenza Type A RNA Not Detected (Not Detectd) Influenza Type B (PCR) Not Detected (Not Detectd) 12/31/17 12/31/17 Range/Units 10:20 10:35 WBC (3.8-10.6) k/uL RBC (3.80-5.40) m/uL Hgb (11.4-16.0) gm/dL Hct (34.0-46.0) % MCV (80.0-100.0) fL MCH (25.0-35.0) pg MCHC (31.0-37.0) g/dL RDW (11.5-15.5) % Plt Count (150-450) k/uL Neutrophils % % Lymphocytes % % Monocytes % % Eosinophils % % Basophils % % Neutrophils # (1.3-7.7) k/uL Lymphocytes # (1.0-4.8) k/uL Monocytes # (0-1.0) k/uL Eosinophils # (0-0.7) k/uL Basophils # (0-0.2) k/uL Sodium (137-145) mmol/L Potassium (3.5-5.1) mmol/L Chloride (98-107) mmol/L Carbon Dioxide (22-30) mmol/L Anion Gap mmol/L BUN (7-17) mg/dL Creatinine (0.52-1.04) mg/dL Est GFR (CKD-EPI)AfAm (>60 ml/min/1.73 sqM) Est GFR (CKD-EPI)NonAf (>60 ml/min/1.73 sqM) Glucose (74-99) mg/dL Plasma Lactic Acid Rayshawn 0.8 (0.7-2.0) mmol/L Calcium (8.4-10.2) mg/dL Total Bilirubin (0.2-1.3) mg/dL AST (14-36) U/L ALT (9-52) U/L Alkaline Phosphatase (38-126) U/L Total Protein (6.3-8.2) g/dL Albumin (3.5-5.0) g/dL Urine Color Light Red Urine Appearance Clear (Clear) Urine pH 6.5 (5.0-8.0) Ur Specific [place] 1.019 (1.001-1.035) Urine Protein 2+ H (Negative) Urine Glucose (UA) Negative (Negative) Urine Ketones Negative (Negative) Urine Blood Small H (Negative) Urine Nitrite Negative (Negative) Urine Bilirubin Negative (Negative) Urine Urobilinogen <2.0 (<2.0) mg/dL Ur Leukocyte Esterase Moderate H (Negative) Urine RBC 4 (0-5) /hpf Urine WBC 17 H (0-5) /hpf Urine Bacteria Rare H (None) /hpf Urine Mucus Rare H (None) /hpf Influenza Type A RNA (Not Detectd) Influenza Type B (PCR) (Not Detectd) Disposition Clinical Impression: Altered mental status, UTI (urinary tract infection) Disposition: ADMITTED IP TO THIS [facility] Condition: Stable Referrals: Polo Jamison MD [Primary Care Provider] - 1-2 days Decision to Admit Reason: Admit from [facility] Decision Date: 12/31/17 Decision Time: 14:20
[2017-12-31] MEDS ORDERED: cefTRIAXone IN SWFI 1,000 MG/10 ML SYRINGE IVP STA (14:26)
--- NOTE | 2017-12-31 16:06 | HP ---
HISTORY AND PHYSICAL CHIEF COMPLAINT: Urinary tract infection and mental status changes. HISTORY OF PRESENT ILLNESS: This is another recent admission for this lady who has been in and out from [facility]. She has multiple sclerosis, which has resulted in mental status changes and blindness. She has frequent urinary tract infections and is being treated for one now. She apparently was noticed to have mental status change at the correction with her eyes fixed to one side and not being as responsive as she normally is. She was brought to the emergency room where her , who is very attentive, is certain that there has been a neurologic change. REVIEW OF SYSTEMS: Unobtainable. Past medical history, family history, personal and social histories are presumed unchanged and otherwise unobtainable. She has not been running a fever and she has had no vomiting or diarrhea and there has not been a complaint of pain. PHYSICAL EXAMINATION: Blood pressure is 127/65 with a pulse of 78, respirations of 15 and she is afebrile. In general she appeared to be slender and more lethargic than usual. Skin was dry. Head, ears, eyes, nose, mouth, and throat found pupils to be slightly and equal and there was a slight tendency to have a fixed gaze to the left. Ears, nose, mouth, and throat were otherwise normal. Neck was supple. Chest is clear. Cardiac exam is normal. Abdomen is soft without masses or tenderness. Extremities are normal and neurologically she was responsive, but less so and had very little extremity movement. IMPRESSION: 1. Question mental status changes. 2. Question cerebrovascular accident. 3. Multiple sclerosis. 4. Blindness. 5. Urinary tract infection. PLAN: 1. Bed rest. 2. IV fluids. 3. Frequent monitoring of her neurologic status and vital signs. MMODL / IJN: [id number] /
--- NOTE | 2017-12-31 18:23 | P.CNNES ---
History of Present Illness Consult date: 12/31/17 Reason for Consult: Patient with altered mental status and urinary tract infection. History of Present Illness: This patient is a 82-year-old right-handed white female who is currently residing at [facility]. She was noted by the nursing staff there is showing altered mental status and questionable urinary tract infection. According to the daughter who was at bedside and provided much of the history for this patient she did receive a dose of antibiotic and then was sent to the emergency room at [facility] for evaluation. She was seen in the ER by Dr. Matute. She was sent for a computed tomography scan of the brain which revealed no acute intracranial abnormality. There was atrophy and chronic white matter ischemic changes noted. According to the daughter yesterday in the emergency room she was totally unresponsive to any verbal commands. Today she is at least answering some questions appropriately. She still seems to be very much withdrawn. Patient has a known history of multiple sclerosis for over 40 years. She is currently on Betaseron for treatment of her MS condition. She is currently on Rocephin for antibiotic coverage. Blood culture and urine cultures are pending at this time. Patient is running low-grade temperature of 99.3 at this time. She does seem to understand some questioning but still has a blank stare at times. She is following some commands. She is not able to give the name of her daughter who was sitting at her bedside. It is unclear if she has underlying cognitive impairment over the years from her multiple other medical issues. According to the daughter she is much more lively at the long term then she is here today in the hospital. We did review the results of the computed tomography scan of the brain with the patient's daughter at bedside. She does not appear to have any visual gaze preference at this time. 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 She also suffers from glaucoma in the right eye. The patient is now admitted and neurology has been consulted for further evaluation and recommendations. Review of Systems Constitutional: Denies chills, Denies fever Eyes: right loss of vision, denies blurred vision, denies pain Ears, nose, mouth and throat: Denies headache, Denies sore throat Cardiovascular: Denies chest pain, Denies shortness of breath Respiratory: Denies cough Gastrointestinal: Denies abdominal pain, Denies diarrhea, Denies nausea, Denies vomiting Genitourinary: Denies dysuria, Denies hematuria Musculoskeletal: Denies myalgias Integumentary: Denies pruritus, Denies rash Neurological: Reports change in mentation, Reports confusion, Reports loss of vision, Reports memory loss, Denies numbness, Denies weakness Psychiatric: Denies anxiety, Denies depression Endocrine: Denies fatigue, Denies weight change Past Medical History Past Medical History: Atrial Fibrillation, Cancer, CVA/TIA, Dementia, Eye Disorder, Fibromyalgia, Hyperlipidemia, Hypertension, Musculoskeletal Disorder, Neurologic Disorder, Osteoarthritis (OA), Thyroid Disorder Additional Past Medical History / Comment(s): 12-11-15 CVA. FX LT HIP. 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 History of Any Multi-Drug Resistant Organisms: VRE Date of last positivie culture/infection: 06/09/16 MDRO Source:: Urine Past Surgical History: Breast Surgery, Cholecystectomy, Heart Catheterization, Hysterectomy, Orthopedic Surgery, Pacemaker Additional Past Surgical History / Comment(s): LT HIP CEMENTED UNIPOLAR HEMIARTHROPLASTY cardiac cath-normal, L AND R ROTATOR CUFF with R done twice, L BREAST PARTIAL MASTECTOMY(CYTOSCARCONA PHYLLODES) THEN RECONSTRUCTION, R BREAST REDUCTION, R EYE ANEURYSM- LASER, L KNEE ARTHROSCOPY, L FOOT SURGERY, R AND L CATARACT SURGERY, LYNETTEA PACEMAKER in January [address] Shell see paper chart for emergency info on pacemaker.CYSTOCELE REPAIR, GETS INJECTIONS IN EYES AND SHOULDER, colonoscopy 2012, capsulotomy-Yag laser 2014. Past Anesthesia/Blood Transfusion Reactions: Previous Problems w/ Anesthesia, Postoperative Nausea & Vomiting (PONV) Additional Past Anesthesia/Blood Transfusion Reaction / Comment(s): LOCAL- VOMITING AND SEIZURE hx long time waking up from anesthesia no epi in local anesthesia!!! Type of Cardiac Device: Permanent Pacemaker Device Placement Date:: 01/30/13 Past Psychological History: Anxiety Additional Psychological History / Comment(s): . Resides in extended care. No tobacco use. No alcohol use. 3 adult children. No animal exposures. No experience no international travel Smoking Status: Former smoker Past Alcohol Use History: None Reported Additional Past Alcohol Use History / Comment(s): QUIT SMOKING 40 YEARS AGO(1977 ) Past Drug Use History: None Reported - Past Family History Mother Family Medical History: Coronary Artery Disease (CAD) Father Family Medical History: Coronary Artery Disease (CAD), Myocardial Infarction (HI ) Additional Family Medical History / Comment(s): mother and father-cardiac Medications and Allergies Home Medications Medication Instructions Recorded Confirmed Type Latanoprost Ophth [Xalatan 0.005%] 1 drop BOTH EYES HS 01/28/14 12/31/17 History Levothyroxine Sodium [Synthroid] 25 mcg PO DAILY 01/28/14 12/31/17 History Atorvastatin [Lipitor] 10 mg PO HS 07/30/14 12/31/17 History Docusate [Colace] 200 mg PO BID@0800,1700 11/14/14 12/31/17 History Cholecalciferol [Vitamin D3] 2,000 unit PO DAILY@1200 12/11/15 12/31/17 History Potassium Chloride [Klor-Con 10] 10 meq PO DAILY@1700 12/11/15 12/31/17 History Ascorbic Acid [Vitamin C] 500 mg PO DAILY@1200 05/07/16 12/31/17 History Magnesium Oxide [Magox 400] 400 mg PO DAILY@1200 05/07/16 12/31/17 History Betaseron Kit 0.3mg 1 dose SQ Q48H 06/09/16 12/31/17 History Calcium Carbonate [Tums] 1,000 mg PO DAILY@1700 06/09/16 12/31/17 History Losartan [Cozaar] 50 mg PO QAM 06/09/16 12/31/17 History Pramipexole [Mirapex] 0.25 mg PO HS 06/09/16 12/31/17 History Psyllium Husk (with Sugar) 6 gm PO DAILY@1200 06/09/16 12/31/17 History [Metamucil Powder] Rivaroxaban [Xarelto] 20 mg PO DAILY@1700 06/09/12/31/17 History Acetaminophen Tab [Tylenol] 325 mg PO Q6H PRN 11/10/17 12/31/17 History Bisacodyl [Dulcolax] 10 mg RECTAL DAILY PRN 11/10/17 12/31/17 History Brinzolamide [Azopt 1% Ophth Susp] 1 drop BOTH EYES BID@0800,1700 11/10/1712/31 History Brinzolamide/Brimonidine Tart 1 drop RIGHT EYE BID@0800,1700 11/10/17 12/31/17 History [Simbrinza 1%-0.2% Eye Drops] Carboxymethyl/Gly/Poly80/Pf 1 dropper BOTH EYES DAILY PRN 11/10/17 12/31/17 History [Refresh Optive Elio-3 Drops] Famotidine [Pepcid] 20 mg PO DAILY 11/10/17 12/31/17 History Loratadine [Claritin] 10 mg PO DAILY PRN 11/10/17 12/31/17 History Magnesium Hydroxide [Milk of 2,400 mg PO ONCE PRN 11/10/17 12/31/17 History Magnesia] Metoprolol Tartrate [Lopressor] 25 mg PO BID@0800,1700 11/10/17 12/31/17 History Mirtazapine [Remeron] 15 mg PO HS 11/10/17 12/31/17 History Na Phos,M-B/Na Phos,Di-Ba [Fleet 133 ml RECTAL ONCE PRN 11/10/17 12/31/17 History Adult] Cranberry Juice Extract 425mg 425 mg PO BID@0800,1700 12/31/17 12/31/17 History Lactose-Reduced Food [Ensure Plus] 120 ml PO BID@0800,1700 12/31/17 12/31/17 History Nitrofurantoin Monohyd/M-Cryst 100 mg PO BID@0800,1700 12/31/17 12/31/17 History [Macrobid] Sodium Bicarbonate Tab 650 mg PO BID@0800,1700 12/31/17 12/31/17 History cefTRIAXone [Rocephin] 1,000 mg IVPB DAILY 12/31/17 12/31/17 History Allergies Allergy/AdvReac Type Severity Reaction Status Date / Time acetaminophen [From Tylenol] Allergy Rash/Hives Verified 12/31/17 11:31 codeine Allergy Rash/Hives Verified 12/31/17 11:31 epinephrine Allergy Unknown Verified 12/31/17 11:31 sulfacetamide sodium Allergy Rash/Hives Verified 12/31/17 11:31 [From Sulfamide] adhesive AdvReac Unknown Verified 12/31/17 11:31 ciprofloxacin [From Cipro] AdvReac Unknown Verified 12/31/17 11:31 ciprofloxacin HCl AdvReac Unknown Verified 12/31/17 11:31 [From Cipro] oxycodone HCl [From Percocet] AdvReac Unknown Verified 12/31/17 11:31 prednisone AdvReac Unknown Verified 12/31/17 11:31 Sulfa (Sulfonamide AdvReac Nausea & Verified 12/31/17 11:31 Antibiotics) Vomiting Physical Examination - Vital Signs Vital Signs: Vital Signs Temp Pulse Pulse Resp BP BP Pulse Ox 12/31/17 15:47 86 18 12/31/17 15:41 97.7 F 86 18 141/59 95 12/31/17 14:21 96.8 F L 85 18 145/64 98 12/31/17 11:37 77 16 160/70 96 12/31/17 10:00 99.3 F 75 16 147/69 97 Intake and Output 12/31/17 12/31/17 12/31/17 06:59 14:59 22:59 Other: Voiding Method Diaper Incontinent Weight 61.235 kg - Constitutional General appearance: average body habitus, cooperative - EENT EENT: PERRL, mucous membranes moist - Respiratory Respiratory: lungs clear, normal breath sounds (Old he just wanted to manage her 19 kinesiotaping given that Génesis was in his room used yesterday to help some OK Sharla notes that he can use it whenever he needs to the back of the) - Cardiovascular Cardiovascular: regular rate, normal S1, normal S2 Extremities: no peripheral edema bilaterally - Gastrointestinal Gastrointestinal: normoactive bowel sounds - Integumentary Integumentary: normal - Neurologic Cranial nerve examination: PERRL, EOMI, VFF (Patient legally blind in both eyes. ), V1/V2/V3 grossly intact, face symmetric, tongue midline, intact gag reflex, intact corneal reflex, normal palatal elevation Speech examination: intact Sensorimotor examination: intact Motor examination - right side: 4/5: biceps, triceps, wrist flexion, wrist extension, hydration plant operator, hip flexors, knee extensors, dorsiflexion, toe extension (EHL) , plantarflexion Motor examination - left side: 4/5: biceps, triceps, wrist flexion, wrist extension, hydration plant operator, hip flexors, knee extensors, dorsiflexion, toe extension (EHL) , plantarflexion Detailed sensory examination: intact Reflex and gait examination: intact Reflexes: 1+: ankle, bicep, knee, tricep - Musculoskeletal Musculoskeletal: no pain - Psychiatric Psychiatric: mood/affect appropriate Results - Laboratory Findings CBC and BMP: 12/31/17 10:20 12/31/17 10:20 Abnormal Lab Findings: Abnormal Labs 12/31/17 12/31/17 12/31/17 10:20 10:20 10:35 RBC 3.74 L Hgb 10.7 L Hct 32.4 L Neutrophils # 8.1 H Lymphocytes # 0.9 L Chloride 108 H BUN 26 H Glucose 109 H Total Protein 5.6 L Albumin 2.7 L Urine Protein 2+ H Urine Blood Small H Ur Leukocyte Esterase Moderate H Urine WBC 17 H Urine Bacteria Rare H Urine Mucus Rare H Assessment and Plan (1) UTI (urinary tract infection) Current Visit: Yes Status: Acute Code(s): N39.0 - URINARY TRACT INFECTION, SITE NOT SPECIFIED SNOMED Code(s): 93986547 (2) Acute encephalopathy Current Visit: Yes Status: Acute Code(s): G93.40 - ENCEPHALOPATHY, UNSPECIFIED SNOMED Code(s): 19985624 (3) Multiple sclerosis Current Visit: No Status: Acute Code(s): G35 - MULTIPLE SCLEROSIS SNOMED Code(s): 37470225 (4) Vision loss of right eye Current Visit: Yes Status: Acute Code(s): H54.61 - UNQUALIFIED VISUAL LOSS, RIGHT EYE, NORMAL VISION LEFT EYE SNOMED Code(s): 524819232 Plan: This patient is a 82-year-old female who was admitted to hospital with altered mental status and probable urinary tract infection. Patient was started on IV Rocephin and admitted to the hospital. Patient has been residing at [facility] and has a long-standing history of multiple sclerosis. She is currently on Betaseron as primary treatment for her MS. She does have history of recurrent urinary tract infections in the past. She also has probable underlying cognitive impairment with dementia. She apparently is much more alert at the long term and due to the change in mentation she was admitted to the hospital today for further evaluation. Her neurological examination is very limited at this time. She does appear to be encephalopathic with slight improvement according to the daughter since admission. Would recommend continue aggressive treatment of urinary tract infection. Awaiting results of her urine and blood cultures as well. Her overall prognosis at this time remains guarded. This case was discussed at length with the patient's daughter at bedside. All of her questions were answered. She is aware of her mother's guarded condition. We will continue close neurological follow-up with the patient during this admission. Time with Patient: Greater than 30
[2017-12-31] MEDS ORDERED: NA PHOS,M-B/NA PHOS,DI-BA 133 ML ENEMA RECTAL PRN (18:25)
[2017-12-31] MEDS ORDERED: BISACODYL 10 MG SUPP RECTAL PRN (18:25)
[2017-12-31] MEDS ORDERED: ARTIFICIAL TEARS-HYPROMELLOSE DROPS 15 ML BTL BOTH EYES PRN (18:25)
[2017-12-31] MEDS ORDERED: ACETAMINOPHEN TAB 325 MG TAB PO PRN (18:25)
[2017-12-31] MEDS ORDERED: MAGNESIUM HYDROXIDE 2,400 MG/10 ML CUP PO PRN (18:25)
[2017-12-31] MEDS: LATANOPROST 0.005% OPHTH DROPS 2.5 ML BTL BOTH EYES SCH (19:55)
[2017-12-31] MEDS: MIRTAZAPINE 15 MG TAB PO SCH (19:56)
[2017-12-31] MEDS: PRAMIPEXOLE 0.25 MG TAB PO SCH (19:56)
[2018-01-01] MEDS: ERTAPENEM 1 GM in SODIUM CHLORIDE 0.9% 50 ML IVPB SCH ×2 (01:44→22:27)
[2018-01-01] MEDS: LEVOTHYROXINE 25 MCG TAB PO SCH (05:37)
[2018-01-01] MEDS ORDERED: NON-FORMULARY DRUG (Lactose-Reduced Food [Ensure Plus] 120 ML) PO SCH (08:00)
[2018-01-01] MEDS: FAMOTIDINE 20 MG TAB PO SCH (08:18)
[2018-01-01] MEDS: LOSARTAN 50 MG TAB PO SCH (08:18)
[2018-01-01] MEDS: SODIUM BICARBONATE TAB 650 MG TAB PO SCH ×2 (08:18→17:42)
[2018-01-01] MEDS: METOPROLOL TARTRATE 25 MG TAB PO SCH ×2 (08:18→17:43)
[2018-01-01] MEDS: DOCUSATE 100 MG CAP PO SCH ×2 (08:18→17:42)
[2018-01-01] MEDS: BRIMONIDINE TARTRATE 0.2% DROPS 5 ML BTL RIGHT EYE SCH ×2 (08:18→17:43)
[2018-01-01] MEDS: DORZOLAMIDE HCL 2% DROPS 10 ML BTL BOTH EYES SCH ×2 (08:19→17:43)
[2018-01-01] MEDS ORDERED: cefTRIAXone IN SWFI 1,000 MG/10 ML SYRINGE IVP SCH (09:00)
[2018-01-01] MEDS: PSYLLIUM HUSK 100% 6 GM PACKET PO SCH (11:35)
--- NOTE | 2018-01-01 15:02 | P.PN ---
Subjective Progress Note Date: 01/01/18 This patient is a 82-year-old right-handed white female who was admitted from [facility] with symptoms of worsening mental status changes and generalized weakness. Patient is being treated currently for urinary tract infection. Patient is seen today at bedside with her and several of her children present at bedside. Patient apparently showing some improvement in her functioning today and that she is more awake. She is eating a pured diet and seems to be tolerating this well. She is being treated for underlying urinary tract infection. She has a long history of underlying multiple sclerosis and is being treated for this condition as well and is currently on Betaseron. According to the she has been holding her own in terms of her diagnosis of MS. Patient is able to answer some simple questions today. She does show slight improvement with her overall mental status as compared to yesterday. We will continue close neurological follow-up for the patient. Her overall prognosis at this time remains guarded. Objective - Vital Signs Vital signs: Vital Signs Temp 99.4 F 01/01/18 07:00 Pulse 75 01/01/18 07:00 Resp 16 01/01/18 07:00 BP 131/74 01/01/18 07:00 Pulse Ox 98 01/01/18 07:00 Intake & Output 12/31/17 01/01/18 01/01/18 18:59 06:59 18:59 Weight 61.235 kg Other: Voiding Method Diaper Diaper Diaper Incontinent Incontinent Incontinent # Voids 1 # Bowel Movements 0 - Exam Physical examination: PHYSICAL EXAMINATION: Patient is resting comfortably in bed. VITAL SIGNS: Blood pressure is [131/74]. Heart rate is [75]. Respiration is [16] . Temperature is [99.4]. HEENT: Head is atraumatic, neck is supple, there were no carotid bruits. CHEST: Lungs are clear to auscultation and percussion. CARDIAC: S1, S2 normal rate and rhythm. There is no murmur. ABDOMEN: Soft and nontender. Bowel sounds are present. EXTREMITIES: There is no pedal edema. Peripheral pulses are present. Neurological examination: Patient's neurological examination is unchanged from yesterday. She is slightly more awake and alert today and is answering a few questions spontaneously. - Labs CBC & Chem 7: 12/31/17 10:20 12/31/17 10:20 Labs: Microbiology - Last 24 Hours (Table) 12/31/17 10:20 Blood Culture - Preliminary Blood No Growth after 24 hours 12/31/17 10:35 Urine Culture - Preliminary Urine,Catheterized Assessment and Plan (1) UTI (urinary tract infection) Current Visit: Yes Status: Acute Code(s): N39.0 - URINARY TRACT INFECTION, SITE NOT SPECIFIED SNOMED Code(s): 66022783 (2) Acute encephalopathy Current Visit: Yes Status: Acute Code(s): G93.40 - ENCEPHALOPATHY, UNSPECIFIED SNOMED Code(s): 93297534 (3) Multiple sclerosis Current Visit: No Status: Acute Code(s): G35 - MULTIPLE SCLEROSIS SNOMED Code(s): 46574363 (4) Vision loss of right eye Current Visit: Yes Status: Acute Code(s): H54.61 - UNQUALIFIED VISUAL LOSS, RIGHT EYE, NORMAL VISION LEFT EYE SNOMED Code(s): 779414390 Plan: This patient is a 82-year-old female who was admitted to hospital with mental status changes and urinary tract infection. Patient seems to be doing better today in terms of her overall mental status. Case was discussed today with the patient's and several family members at bedside. She is showing slight improvement today as compared to yesterday. Infectious disease has been consulted for further evaluation of the urinary tract infection. She is currently on Rocephin daily. She has a history of underlying multiple sclerosis for many years. She is currently using Betaseron as primary treatment. Her blood and urine cultures are still pending and we will await further recommendations from infectious disease. Patient likely has underlying findings for acute encephalopathy which appears to be slowly improving. We will continue close neurological follow-up for the patient during this admission. Case was discussed today at length with the patient's was at bedside. All his questions were answered. He is aware of her current recommendations. He is aware of her guarded condition as well.
[2018-01-01] MEDS: POTASSIUM CHLORIDE ER 10 MEQ TAB.ER.PRT PO SCH (17:42)
[2018-01-01] MEDS: RIVAROXABAN 20 MG TAB PO SCH (17:43)
--- NOTE | 2018-01-01 22:02 | P.CONS ---
History of Present Illness - Reason for Consult Consult date: 01/01/18 - Chief Complaint Altered mental status - History of Present Illness 82-year-old female who has multiple hospitalizations over the last several years related to bouts of sepsis likely from urinary tract infection. The patient's family is present. The patient has progressive dementia and is cared for the local extended care facility. Apparently she started to have some decreasing mental status and some fever because of the changes she was transported to hospital for admission. The patient was evaluated and she was hospitalized in October which point in time she had urinary tract infection with Escherichia coli he was treated with a course of Rocephin with good response. She's been doing relatively well until now here the beginning of December, she does have multiple urinary tract infections given her significant debility related to her MS. The patient is arousable upon arrival into the room. She seems to be comfortable but is having some crustiness to her right periorbital area. With her MS she is a poor historian but does seem comfortable. Review of Systems ROS unobtainable: due to mental status Past Medical History Past Medical History: Atrial Fibrillation, Cancer, CVA/TIA, Dementia, Eye Disorder, Fibromyalgia, Hyperlipidemia, Hypertension, Musculoskeletal Disorder, Neurologic Disorder, Osteoarthritis (OA), Thyroid Disorder Additional Past Medical History / Comment(s): 12-11-15 CVA. FX LT HIP. 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 History of Any Multi-Drug Resistant Organisms: VRE Year Discovered:: 06/09/16 MDRO Source:: Urine Past Surgical History: Breast Surgery, Cholecystectomy, Heart Catheterization, Hysterectomy, Orthopedic Surgery, Pacemaker Additional Past Surgical History / Comment(s): LT HIP CEMENTED UNIPOLAR HEMIARTHROPLASTY cardiac cath-normal, L AND R ROTATOR CUFF with R done twice, L BREAST PARTIAL MASTECTOMY(CYTOSCARCONA PHYLLODES) THEN RECONSTRUCTION, R BREAST REDUCTION, R EYE ANEURYSM- LASER, L KNEE ARTHROSCOPY, L FOOT SURGERY, R AND L CATARACT SURGERY, GENE MUSTAFA PACEMAKER in January [address] Shell see paper chart for emergency info on pacemaker.CYSTOCELE REPAIR, GETS INJECTIONS IN EYES AND SHOULDER, colonoscopy 2012, capsulotomy-Yag laser 2014. Past Anesthesia/Blood Transfusion Reactions: Previous Problems w/ Anesthesia, Postoperative Nausea & Vomiting (PONV) Additional Past Anesthesia/Blood Transfusion Reaction / Comm: LOCAL-VOMITING AND SEIZURE hx long time waking up from anesthesia no epi in local anesthesia!!! Type of Cardiac Device: Permanent Pacemaker Device Placement Date:: 01/30/13 Past Psychological History: Anxiety Additional Psychological History / Comment(s): . Resides in extended care. No tobacco use. No alcohol use. 3 adult children. No animal exposures. No experience no international travel Smoking Status: Former smoker Past Alcohol Use History: None Reported Additional Past Alcohol Use History / Comment(s): QUIT SMOKING 40 YEARS AGO(1977 ) Past Drug Use History: None Reported - Past Family History Mother Family Medical History: Coronary Artery Disease (CAD) Father Family Medical History: Coronary Artery Disease (CAD), Myocardial Infarction ([place] ) Additional Family Medical History / Comment(s): mother and father-cardiac Medications and Allergies Home Medications and Allergies Comment(s): Current Medications Acetaminophen (Tylenol Tab) 325 mg PO Q6H PRN PRN Reason: Pain Artificial Tears (Artificial Tear Drops) 1 drops BOTH EYES DAILY PRN PRN Reason: Dry Eye(s) Bisacodyl (Dulcolax) 10 mg RECTAL DAILY PRN PRN Reason: Constipation Brimonidine Tartrate (Alphagan P 0.2% Ophth Soln) 1 drops RIGHT EYE BID@0800, 1700 [facility] Last Admin: 01/01/18 17:43 Dose: 1 drops Docusate Sodium (Colace) 200 mg PO BID@0800,1700 [facility] Last Admin: 01/01/18 17:42 Dose: 200 mg Dorzolamide HCl (Trusopt) 1 drops BOTH EYES BID@0800,1700 [facility] Last Admin: 01/01/18 17:43 Dose: 1 drops Famotidine (Pepcid) 20 mg PO DAILY [facility] Last Admin: 01/01/18 08:18 Dose: 20 mg Ertapenem 1 gm/ Sodium (Chloride) 50 mls @ 100 mls/hr IVPB [facility] Last Admin: 01/01/18 01:44 Dose: 100 mls/hr Latanoprost (Xalatan 0.005%) 1 drops BOTH EYES [facility] Last Admin: 12/31/17 19:55 Dose: 1 drops Levothyroxine Sodium (Synthroid) 25 mcg PO DAILY@0630 [facility] Last Admin: 01/01/18 05:37 Dose: 25 mcg Losartan Potassium (Cozaar) 50 mg PO QAM [facility] Last Admin: 01/01/18 08:18 Dose: 50 mg Magnesium Hydroxide (Milk Of Magnesia) 2,400 mg PO ONCE PRN PRN Reason: Constipation Metoprolol Tartrate (Lopressor) 25 mg PO BID@0800,1700 [facility] Last Admin: 01/01/18 17:43 Dose: 25 mg Mirtazapine (Remeron) 15 mg PO [facility] Last Admin: 12/31/17 19:56 Dose: 15 mg Naloxone HCl (Narcan) 0.2 mg IV Q2M PRN PRN Reason: Opioid Reversal Potassium Chloride (K-Dur 10) 10 meq PO DAILY@1700 [facility] Last Admin: 01/01/18 17:42 Dose: 10 meq Pramipexole Dihydrochloride (Mirapex) 0.25 mg PO [facility] Last Admin: 12/31/17 19:56 Dose: 0.25 mg Psyllium Hydrophilic Mucilloid (Metamucil) 6 gm PO DAILY@1200 [facility] Last Admin: 01/01/18 11:35 Dose: 6 gm Rivaroxaban (Xarelto) 20 mg PO DAILY@1700 [facility] Last Admin: 01/01/18 17:43 Dose: 20 mg Sodium Bicarbonate (Sodium Bicarbonate Tab) 650 mg PO BID@0800,1700 [facility] Last Admin: 01/01/18 17:42 Dose: 650 mg Sodium Biphosphate/Sodium Phosphate (Fleet Adult) 133 ml RECTAL ONCE PRN PRN Reason: Constipation Home Medications Medication Instructions Recorded Confirmed Type Latanoprost Ophth [Xalatan 0.005%] 1 drop BOTH EYES 01/28/14 12/31/17 History Levothyroxine Sodium [Synthroid] 25 mcg PO DAILY 01/28/14 12/31/17 History Atorvastatin [Lipitor] 10 mg PO 07/30/14 12/31/17 History Docusate [Colace] 200 mg PO BID@0800,1700 11/14/14 12/31/17 History Cholecalciferol [Vitamin D3] 2,000 unit PO DAILY@1200 12/11/15 12/31/17 History Potassium Chloride [Klor-Con 10] 10 meq PO DAILY@1700 12/11/15 12/31/17 History Ascorbic Acid [Vitamin C] 500 mg PO DAILY@1200 05/07/16 12/31/17 History Magnesium Oxide [Magox 400] 400 mg PO DAILY@1200 05/07/16 12/31/17 History Betaseron Kit 0.3mg 1 dose SQ Q48H 06/09/16 12/31/17 History Calcium Carbonate [Tums] 1,000 mg PO DAILY@17006/09/16 12/31/17 History Losartan [Cozaar] 50 mg PO QAM 06/09/16 12/31/17 History Pramipexole [Mirapex] 0.25 mg PO HS 06/09/16 12/31/17 History Psyllium Husk (with Sugar) 6 gm PO DAILY@1200 06/09/16 12/31/17 History [Metamucil Powder] Rivaroxaban [Xarelto] 20 mg PO DAILY@1700 06/09/16 12/31/17 History Acetaminophen Tab [Tylenol] 325 mg PO Q6H PRN 11/10/17 12/31/17 History Bisacodyl [Dulcolax] 10 mg RECTAL DAILY PRN 11/10/17 12/31/17 History Brinzolamide [Azopt 1% Ophth Susp] 1 drop BOTH EYES BID@0800,1700 11/10/1712/31 History Brinzolamide/Brimonidine Tart 1 drop RIGHT EYE BID@0800,1700 11/10/17 12/31/17 History [Simbrinza 1%-0.2% Eye Drops] Carboxymethyl/Gly/Poly80/Pf 1 dropper BOTH EYES DAILY PRN 11/10/17 12/31/17 History [Refresh Optive Elio-3 Drops] Famotidine [Pepcid] 20 mg PO DAILY 11/10/17 12/31/17 History Loratadine [Claritin] 10 mg PO DAILY PRN 11/10/17 12/31/17 History Magnesium Hydroxide [Milk of 2,400 mg PO ONCE PRN 11/10/17 12/31/17 History Magnesia] Metoprolol Tartrate [Lopressor] 25 mg PO BID@0800,1700 11/10/17 12/31/17 History Mirtazapine [Remeron] 15 mg PO HS 11/10/17 12/31/17 History Na Phos,M-B/Na Phos,Di-Ba [Fleet 133 ml RECTAL ONCE PRN 11/10/17 12/31/17 History Adult] Cranberry Juice Extract 425mg 425 mg PO BID@0800,1700 12/31/17 12/31/17 History Lactose-Reduced Food [Ensure Plus] 120 ml PO BID@0800,1700 12/31/17 12/31/17 History Nitrofurantoin Monohyd/M-Cryst 100 mg PO BID@0800,1700 12/31/17 12/31/17 History [Macrobid] Sodium Bicarbonate Tab 650 mg PO BID@0800,1700 12/31/17 12/31/17 History cefTRIAXone [Rocephin] 1,000 mg IVPB DAILY 12/31/17 12/31/17 History Allergies Allergy/AdvReac Type Severity Reaction Status Date / Time acetaminophen [From Tylenol] Allergy Rash/Hives Verified 12/31/17 11:31 codeine Allergy Rash/Hives Verified 12/31/17 11:31 epinephrine Allergy Unknown Verified 12/31/17 11:31 sulfacetamide sodium Allergy Rash/Hives Verified 12/31/17 11:31 [From Sulfamide] adhesive AdvReac Unknown Verified 12/31/17 11:31 ciprofloxacin [From Cipro] AdvReac Unknown Verified 12/31/17 11:31 ciprofloxacin HCl AdvReac Unknown Verified 12/31/17 11:31 [From Cipro] oxycodone HCl [From Percocet] AdvReac Unknown Verified 12/31/17 11:31 prednisone AdvReac Unknown Verified 12/31/17 11:31 Sulfa (Sulfonamide AdvReac Nausea & Verified 12/31/17 11:31 Antibiotics) Vomiting Physical Exam Vitals: Vital Signs Temp Pulse Resp BP Pulse Ox 01/01/18 15:00 97.4 F L 79 16 119/71 97 01/01/18 07:00 99.4 F 75 16 131/74 98 01/01/18 00:00 89 16 12/31/17 21:59 89 16 Intake and Output 01/01/18 01/01/18 01/01/18 06:59 14:59 22:59 Other: Voiding Method Diaper Diaper Diaper Incontinent Incontinent Incontinent # Voids 1 # Bowel Movements 0 82-year-old female with advanced dementia but seems to be comfortable HEENT: Anicteric conjunctiva are pink and moist nasal mucosa grossly intact without significant lesions, there is no thrush. Dentition is denture, has some crustiness to the right eye Neck: The neck without stiffness, no palpable thyromegaly or mass Lungs: Symmetrical air entry was noted with few basilar crackles no significant bronchial sounds no dullness or egophony Heart: Irregular with a positive S4 no murmur click or rub Abdomen: Positive bowel sounds soft and nontender without palpable masses or organomegaly. There was no guarding or rebound. Extremities: The upper and lower extremities have some wasting and spasticity but no significant ulcerations are seen pulses are 2+ and symmetric Neuro: Patient is arousable but provides no history did not really follow any commands either Skin is without erythema or breakdown Results CBC & Chem 7: 12/31/17 10:20 12/31/17 10:20 Labs: Microbiology - Last 24 Hours (Table) 12/31/17 10:35 Urine Culture - Final Urine,Catheterized 12/31/17 10:20 Blood Culture - Preliminary Blood No Growth after 24 hours Laboratory Results WBC 10.0 k/uL (3.8-10.6) 12/31/17 10:20 RBC 3.74 m/uL (3.80-5.40) L 12/31/17 10:20 Hgb 10.7 gm/dL (11.4-16.0) L 12/31/17 10:20 Hct 32.4 % (34.0-46.0) L 12/31/17 10:20 MCV 86.5 fL (80.0-100.0) 12/31/17 10:20 MCH 28.6 pg (25.0-35.0) 12/31/17 10:20 MCHC 33.0 g/dL (31.0-37.0) 12/31/17 10:20 RDW 13.9 % (11.5-15.5) 12/31/17 10:20 Plt Count 201 k/uL (150-450) 12/31/17 10:20 Neutrophils % 81 % 12/31/17 10:20 Lymphocytes % 9 % 12/31/17 10:20 Monocytes % 7 % 12/31/17 10:20 Eosinophils % 1 % 12/31/17 10:20 Basophils % 0 % 12/31/17 10:20 Neutrophils # 8.1 k/uL (1.3-7.7) H 12/31/17 10:20 Lymphocytes # 0.9 k/uL (1.0-4.8) L 12/31/17 10:20 Monocytes # 0.7 k/uL (0-1.0) 12/31/17 10:20 Eosinophils # 0.1 k/uL (0-0.7) 12/31/17 10:20 Basophils # 0.0 k/uL (0-0.2) 12/31/17 10:20 Sodium 143 mmol/L (137-145) 12/31/17 10:20 Potassium 3.9 mmol/L (3.5-5.1) 12/31/17 10:20 Chloride 108 mmol/L (98-107) H 12/31/17 10:20 Carbon Dioxide 25 mmol/L (22-30) 12/31/17 10:20 Anion Gap 10 mmol/L 12/31/17 10:20 BUN 26 mg/dL (7-17) H 12/31/17 10:20 Creatinine 0.90 mg/dL (0.52-1.04) 12/31/17 10:20 Est GFR (CKD-EPI)AfAm 70 (>60 ml/min/1.73 sqM) 12/31/17 10:20 Est GFR (CKD-EPI)NonAf 61 (>60 ml/min/1.73 sqM) 12/31/17 10:20 Glucose 109 mg/dL (74-99) H 12/31/17 10:20 Plasma Lactic Acid Rayshawn 0.8 mmol/L (0.7-2.0) 12/31/17 10:20 Calcium 9.5 mg/dL (8.4-10.2) 12/31/17 10:20 Total Bilirubin 0.4 mg/dL (0.2-1.3) 12/31/17 10:20 AST 19 U/L (14-36) 12/31/17 10:20 ALT 24 U/L (9-52) 12/31/17 10:20 Alkaline Phosphatase 71 U/L (38-126) 12/31/17 10:20 Total Protein 5.6 g/dL (6.3-8.2) L 12/31/17 10:20 Albumin 2.7 g/dL (3.5-5.0) L 12/31/17 10:20 Urine Color Light Red 12/31/17 10:35 Urine Appearance Clear (Clear) 12/31/17 10:35 Urine pH 6.5 (5.0-8.0) 12/31/17 10:35 Ur Specific Gallant 1.019 (1.001-1.035) 12/31/17 10:35 Urine Protein 2+ (Negative) H 12/31/17 10:35 Urine Glucose (UA) Negative (Negative) 12/31/17 10:35 Urine Ketones Negative (Negative) 12/31/17 10:35 Urine Blood Small (Negative) H 12/31/17 10:35 Urine Nitrite Negative (Negative) 12/31/17 10:35 Urine Bilirubin Negative (Negative) 12/31/17 10:35 Urine Urobilinogen <2.0 mg/dL (<2.0) 12/31/17 10:35 Ur Leukocyte Esterase Moderate (Negative) H 12/31/17 10:35 Urine RBC 4 /hpf (0-5) 12/31/17 10:35 Urine WBC 17 /hpf (0-5) H 12/31/17 10:35 Urine Bacteria Rare /hpf (None) H 12/31/17 10:35 Urine Mucus Rare /hpf (None) H 12/31/17 10:35 Influenza Type A RNA Not Detected (Not Detectd) 12/31/17 10:20 Influenza Type B (PCR) Not Detected (Not Detectd) 12/31/17 10:20 Microbiology 12/31/17 10:35 Urine,Catheterized Urine Culture - Final 12/31/17 10:20 Blood Blood Culture - Preliminary No Growth after 24 hours Assessment and Plan (1) Multiple sclerosis Current Visit: No Status: Acute Code(s): G35 - MULTIPLE SCLEROSIS SNOMED Code(s): 84490994 (2) Sepsis Narrative/Plan: 82-year-old female presents to the emergency center from the extended care facility with altered mental status and concerns for sepsis. Patient has history of multiple urinary tract infections. She's been treated recently with antibiotic therapy and despite this has not had improvement continues to have some low-grade fever altered mental status and leukocytosis. Consequently her antibiotic therapy as changed from Rocephin to ertapenem while awaiting further culture data with concerns this could be an ESBL infection. Flu testing was negative. Outside urine culture is requested to further help direct the course of antibiotic therapy at the time of her discharge. She is comfortable and has been fed some of her meal and seems to be comfortable at this time. She does have some irritation to the right eye and some eye ointment is requested. Continue ongoing supportive care when stable will arrange for transfer back to the extended care [facility]. Current Visit: No Status: Acute Code(s): A41.9 - SEPSIS, UNSPECIFIED ORGANISM SNOMED Code(s): 39570058 (3) UTI (urinary tract infection) Current Visit: No Status: Acute Code(s): N39.0 - URINARY TRACT INFECTION, SITE NOT SPECIFIED SNOMED Code(s): 19217446 (4) Altered mental status Current Visit: Yes Status: Acute Code(s): R41.82 - ALTERED MENTAL STATUS, UNSPECIFIED SNOMED Code(s): 510591692
[2018-01-01] MEDS: PRAMIPEXOLE 0.25 MG TAB PO SCH (22:29)
[2018-01-01] MEDS: MIRTAZAPINE 15 MG TAB PO SCH (22:29)
[2018-01-01] MEDS: LATANOPROST 0.005% OPHTH DROPS 2.5 ML BTL BOTH EYES SCH (22:29)
[2018-01-01] MEDS: BACITRACIN/POLYMYX 500-10,000 UNIT/GM OPHTH OINT 3.5 GM TUBE BOTH EYES SCH (22:34)
[2018-01-02] MEDS: LEVOTHYROXINE 25 MCG TAB PO SCH (05:48)
[2018-01-02] MEDS: FAMOTIDINE 20 MG TAB PO SCH (08:35)
[2018-01-02] MEDS: BACITRACIN/POLYMYX 500-10,000 UNIT/GM OPHTH OINT 3.5 GM TUBE BOTH EYES SCH ×3 (08:35→22:33)
[2018-01-02] MEDS: METOPROLOL TARTRATE 25 MG TAB PO SCH ×2 (08:35→17:52)
[2018-01-02] MEDS: DOCUSATE 100 MG CAP PO SCH ×2 (08:35→17:52)
[2018-01-02] MEDS: SODIUM BICARBONATE TAB 650 MG TAB PO SCH ×2 (08:35→17:53)
[2018-01-02] MEDS: DORZOLAMIDE HCL 2% DROPS 10 ML BTL BOTH EYES SCH ×2 (08:35→17:51)
[2018-01-02] MEDS: LOSARTAN 50 MG TAB PO SCH (08:35)
[2018-01-02] MEDS: BRIMONIDINE TARTRATE 0.2% DROPS 5 ML BTL RIGHT EYE SCH ×2 (08:36→17:52)
[2018-01-02] MEDS: PSYLLIUM HUSK 100% 6 GM PACKET PO SCH (12:55)
--- NOTE | 2018-01-02 14:30 | PN ---
PROGRESS NOTE DATE OF SERVICE: 01/01/18. CHIEF COMPLAINT: Mental status changes, urinary tract infection and possible neurologic issue. HISTORY OF PRESENT ILLNESS: This lady seems about the same. She is about as arousable as she normally is. Gaze is not fixed to either side. The vital signs have been normal. She has been afebrile. She does have a mild conjunctivitis on the right. PHYSICAL EXAM: She has a mild conjunctivitis involving the right eye, not the left. Chest is clear. Cardiac exam is normal. Abdomen is soft, nontender. IMPRESSION: 1. ? mental status changes or transient ischemic attack. 2. Urinary tract infection. 3. Conjunctivitis, OD. 4. Multiple sclerosis. 5. Blindness. PLAN: No change in program and if she continues to do well, she can probably go back to the retirement first of the week. We will continue to monitor her vital signs and her right eye irritation. MMODL / IJN: [id number] /
[2018-01-02] MEDS: POTASSIUM CHLORIDE ER 10 MEQ TAB.ER.PRT PO SCH (17:52)
[2018-01-02] MEDS: RIVAROXABAN 20 MG TAB PO SCH (17:53)
[2018-01-02 21:42] VITALS: RESP 18
--- NOTE | 2018-01-02 22:29 | P.PN ---
Subjective Progress Note Date: 01/02/18 This patient is a 82-year-old right-handed white female who was admitted from [facility] with symptoms of worsening mental status changes and generalized weakness. Patient is being treated currently for urinary tract infection. Patient is seen today at bedside with her and several of her children present at bedside. Patient apparently showing some improvement in her functioning today and that she is more awake. She is eating a pured diet and seems to be tolerating this well. She is being treated for underlying urinary tract infection. She has a long history of underlying multiple sclerosis and is being treated for this condition as well and is currently on Betaseron. According to the she has been holding her own in terms of her diagnosis of MS. Patient is able to answer some simple questions today. She does show slight improvement with her overall mental status as compared to yesterday. Patient is being treated for mild conjunctivitis involving the right eye. She was seen by infectious disease and her antibiotic has been changed from Rocephin to ertapenem. She is afebrile today. We will continue close neurological follow-up for the patient. Her overall prognosis at this time remains guarded. Objective - Vital Signs Vital signs: Vital Signs Temp 97.4 F L 01/02/18 15:00 Pulse 81 01/02/18 16:00 Resp 16 01/02/18 16:00 BP 142/76 01/02/18 15:00 Pulse Ox 94 L 01/02/18 15:00 Intake & Output 01/02/18 01/02/18 01/03/18 06:59 18:59 06:59 Intake Total 470 1560 Balance 470 1560 Intake: Intake, IV Titration 50 600 Amount Ertapenem 1 gm In Sodium 50 600 Chloride 0.9% 50 ml @ 100 mls/hr IVPB [facility] Rx#: [id number] Oral 420 960 Other: Voiding Method Diaper Diaper Incontinent Incontinent # Voids 1 3 # Bowel Movements 0 - Exam Physical examination: PHYSICAL EXAMINATION: Patient is resting comfortably in bed. VITAL SIGNS: Blood pressure is [142/76]. Heart rate is [81]. Respiration is [16] . Temperature is [97.4]. HEENT: Head is atraumatic, neck is supple, there were no carotid bruits. CHEST: Lungs are clear to auscultation and percussion. CARDIAC: S1, S2 normal rate and rhythm. There is no murmur. ABDOMEN: Soft and nontender. Bowel sounds are present. EXTREMITIES: There is no pedal edema. Peripheral pulses are present. Neurological examination: Patient's neurological examination is unchanged from yesterday. She is slightly more awake and alert today and is answering a few questions spontaneously. - Labs CBC & Chem 7: 12/31/17 10:20 12/31/17 10:20 Labs: Microbiology - Last 24 Hours (Table) 12/31/17 10:20 Blood Culture - Preliminary Blood No Growth after 48 hours 12/31/17 10:35 Urine Culture - Final Urine,Catheterized Assessment and Plan (1) UTI (urinary tract infection) Current Visit: Yes Status: Acute Code(s): N39.0 - URINARY TRACT INFECTION, SITE NOT SPECIFIED SNOMED Code(s): 11556645 (2) Acute encephalopathy Current Visit: Yes Status: Acute Code(s): G93.40 - ENCEPHALOPATHY, UNSPECIFIED SNOMED Code(s): 04868626 (3) Multiple sclerosis Current Visit: No Status: Acute Code(s): G35 - MULTIPLE SCLEROSIS SNOMED Code(s): 94004561 (4) Vision loss of right eye Current Visit: Yes Status: Acute Code(s): H54.61 - UNQUALIFIED VISUAL LOSS, RIGHT EYE, NORMAL VISION LEFT EYE SNOMED Code(s): 251118419 Plan: This patient is a 82-year-old female who was admitted to hospital with altered mental status and sepsis. She is being treated for recurrent and multiple urinary tract infections. She was seen by infectious disease and is currently being treated with ertapenem. She is afebrile today. She does have generalized weakness secondary to her known history of multiple sclerosis. She is doing somewhat better and is more responsive to questioning today. She is being considered for return back to detention as she continues to show signs of improvement in her overall condition. We will continue close neurological follow-up for the patient during this admission.
[2018-01-02] MEDS: MIRTAZAPINE 15 MG TAB PO SCH (22:32)
[2018-01-02] MEDS: PRAMIPEXOLE 0.25 MG TAB PO SCH (22:32)
[2018-01-02] MEDS: LATANOPROST 0.005% OPHTH DROPS 2.5 ML BTL BOTH EYES SCH (22:32)
[2018-01-02] MEDS: ERTAPENEM 1 GM in SODIUM CHLORIDE 0.9% 50 ML IVPB SCH (22:32)
--- NOTE | 2018-01-02 22:46 | P.PN ---
Subjective Progress Note Date: 01/02/18 Principal diagnosis: UTI 82-year-old female who has multiple hospitalizations over the last several years related to bouts of sepsis likely from urinary tract infection. The patient's family is present. The patient has progressive dementia and is cared for the local extended care facility. Apparently she started to have some decreasing mental status and some fever because of the changes she was transported to hospital for admission. The patient was evaluated and she was hospitalized in October which point in time she had urinary tract infection with Escherichia coli he was treated with a course of Rocephin with good response. She's been doing relatively well until now here the beginning of December, she does have multiple urinary tract infections given her significant debility related to her MS. The patient is arousable upon arrival into the room. She seems to be comfortable but is having some crustiness to her right periorbital area. With her MS she is a poor historian but does seem comfortable. 01/02/2018 reveals the patient to be a bit more comfortable, being fed by her . The patient seems to be interacting well with the . The irritation and crusting to the right eye is improved. Temperature is improved to 100.3. Objective - Vital Signs Vital signs: Vital Signs Temp 99 F 01/02/18 21:41 Pulse 73 01/02/18 21:41 Resp 18 01/02/18 21:41 BP 142/74 01/02/18 21:41 Pulse Ox 95 01/02/18 21:41 Intake & Output 01/02/18 01/02/18 01/03/18 06:59 18:59 06:59 Intake Total 470 1560 Balance 470 1560 Intake: Intake, IV Titration 50 600 Amount Ertapenem 1 gm In Sodium 50 600 Chloride 0.9% 50 ml @ 100 mls/hr IVPB [facility] Rx#: [id number] Oral 420 960 Other: Voiding Method Diaper Diaper Incontinent Incontinent # Voids 1 3 # Bowel Movements 0 - Exam 82-year-old female with advanced multiple sclerosis but seems to be comfortable HEENT: Anicteric conjunctiva are pink and moist nasal mucosa grossly intact without significant lesions, there is no thrush. Dentition is denture, has some crustiness to the right eye Neck: The neck without stiffness, no palpable thyromegaly or mass Lungs: Symmetrical air entry was noted with few basilar crackles no significant bronchial sounds no dullness or egophony Heart: Irregular with a positive S4 no murmur click or rub Abdomen: Positive bowel sounds soft and nontender without palpable masses or organomegaly. There was no guarding or rebound. Extremities: The upper and lower extremities have some wasting and spasticity but no significant ulcerations are seen pulses are 2+ and symmetric Neuro: Patient is arousable but provides no history however was able to take food from her without difficulty, was chewing and swallowing without gagging and choking Skin is without erythema or breakdown - Labs CBC & Chem 7: 12/31/17 10:20 12/31/17 10:20 Labs: Microbiology - Last 24 Hours (Table) 12/31/17 10:20 Blood Culture - Preliminary Blood No Growth after 48 hours 12/31/17 10:35 Urine Culture - Final Urine,Catheterized Laboratory Results WBC 10.0 k/uL (3.8-10.6) 12/31/17 10:20 RBC 3.74 m/uL (3.80-5.40) L 12/31/17 10:20 Hgb 10.7 gm/dL (11.4-16.0) L 12/31/17 10:20 Hct 32.4 % (34.0-46.0) L 12/31/17 10:20 MCV 86.5 fL (80.0-100.0) 12/31/17 10:20 MCH 28.6 pg (25.0-35.0) 12/31/17 10:20 MCHC 33.0 g/dL (31.0-37.0) 12/31/17 10:20 RDW 13.9 % (11.5-15.5) 12/31/17 10:20 Plt Count 201 k/uL (150-450) 12/31/17 10:20 Neutrophils % 81 % 12/31/17 10:20 Lymphocytes % 9 % 12/31/17 10:20 Monocytes % 7 % 12/31/17 10:20 Eosinophils % 1 % 12/31/17 10:20 Basophils % 0 % 12/31/17 10:20 Neutrophils # 8.1 k/uL (1.3-7.7) H 12/31/17 10:20 Lymphocytes # 0.9 k/uL (1.0-4.8) L 12/31/17 10:20 Monocytes # 0.7 k/uL (0-1.0) 12/31/17 10:20 Eosinophils # 0.1 k/uL (0-0.7) 12/31/17 10:20 Basophils # 0.0 k/uL (0-0.2) 12/31/17 10:20 Sodium 143 mmol/L (137-145) 12/31/17 10:20 Potassium 3.9 mmol/L (3.5-5.1) 12/31/17 10:20 Chloride 108 mmol/L (98-107) H 12/31/17 10:20 Carbon Dioxide 25 mmol/L (22-30) 12/31/17 10:20 Anion Gap 10 mmol/L 12/31/17 10:20 BUN 26 mg/dL (7-17) H 12/31/17 10:20 Creatinine 0.90 mg/dL (0.52-1.04) 12/31/17 10:20 Est GFR (CKD-EPI)AfAm 70 (>60 ml/min/1.73 sqM) 12/31/17 10:20 Est GFR (CKD-EPI)NonAf 61 (>60 ml/min/1.73 sqM) 12/31/17 10:20 Glucose 109 mg/dL (74-99) H 12/31/17 10:20 Plasma Lactic Acid Rayshawn 0.8 mmol/L (0.7-2.0) 12/31/17 10:20 Calcium 9.5 mg/dL (8.4-10.2) 12/31/17 10:20 Total Bilirubin 0.4 mg/dL (0.2-1.3) 12/31/17 10:20 AST 19 U/L (14-36) 12/31/17 10:20 ALT 24 U/L (9-52) 12/31/17 10:20 Alkaline Phosphatase 71 U/L (38-126) 12/31/17 10:20 Total Protein 5.6 g/dL (6.3-8.2) L 12/31/17 10:20 Albumin 2.7 g/dL (3.5-5.0) L 12/31/17 10:20 Urine Color Light Red 12/31/17 10:35 Urine Appearance Clear (Clear) 12/31/17 10:35 Urine pH 6.5 (5.0-8.0) 12/31/17 10:35 Ur Specific [place] 1.019 (1.001-1.035) 12/31/17 10:35 Urine Protein 2+ (Negative) H 12/31/17 10:35 Urine Glucose (UA) Negative (Negative) 12/31/17 10:35 Urine Ketones Negative (Negative) 12/31/17 10:35 Urine Blood Small (Negative) H 12/31/17 10:35 Urine Nitrite Negative (Negative) 12/31/17 10:35 Urine Bilirubin Negative (Negative) 12/31/17 10:35 Urine Urobilinogen <2.0 mg/dL (<2.0) 12/31/17 10:35 Ur Leukocyte Esterase Moderate (Negative) H 12/31/17 10:35 Urine RBC 4 /hpf (0-5) 12/31/17 10:35 Urine WBC 17 /hpf (0-5) H 12/31/17 10:35 Urine Bacteria Rare /hpf (None) H 12/31/17 10:35 Urine Mucus Rare /hpf (None) H 12/31/17 10:35 Influenza Type A RNA Not Detected (Not Detectd) 12/31/17 10:20 Influenza Type B (PCR) Not Detected (Not Detectd) 12/31/17 10:20 Microbiology 12/31/17 10:20 Blood Blood Culture - Preliminary No Growth after 48 hours 12/31/17 10:35 Urine,Catheterized Urine Culture - Final Assessment and Plan (1) Multiple sclerosis Current Visit: No Status: Acute Code(s): G35 - MULTIPLE SCLEROSIS SNOMED Code(s): 04203300 (2) Sepsis Narrative/Plan: 82-year-old female presents to the emergency center from the extended care facility with altered mental status and concerns for sepsis. Patient has history of multiple urinary tract infections. She's been treated recently with antibiotic therapy and despite this has not had improvement continues to have some low-grade fever altered mental status and leukocytosis. Consequently her antibiotic therapy as changed from Rocephin to ertapenem while awaiting further culture data with concerns this could be an ESBL infection. Flu testing was negative. Outside urine culture is requested to further help direct the course of antibiotic therapy at the time of her discharge. She is comfortable and has been fed some of her meal and seems to be comfortable at this time. She does have some irritation to the right eye and some eye ointment is requested. Continue ongoing supportive care when stable will arrange for transfer back to the [facility] care facility. 01/02/2018 reveals the patient to have some improvement of her status in the last day. Appears to be responding to resuscitation and antibiotic therapy with ertapenem while cultures are pending. The eye irritation appears to be improved. The patient's neurological status has improved and she is being fed by her without difficulties. The cultures will help determine the course of antibiotic therapy at the time of her discharge. Current Visit: No Status: Acute Code(s): A41.9 - SEPSIS, UNSPECIFIED ORGANISM SNOMED Code(s): 09494601 (3) UTI (urinary tract infection) Current Visit: No Status: Acute Code(s): N39.0 - URINARY TRACT INFECTION, SITE NOT SPECIFIED SNOMED Code(s): 48221942 (4) Altered mental status Current Visit: Yes Status: Acute Code(s): R41.82 - ALTERED MENTAL STATUS, UNSPECIFIED SNOMED Code(s): 641293750
[2018-01-03] MEDS: LEVOTHYROXINE 25 MCG TAB PO SCH (05:36)
[2018-01-03 08:56] VITALS: BP 139/82; PULSE 80; TEMP 97.1
[2018-01-03] MEDS: DORZOLAMIDE HCL 2% DROPS 10 ML BTL BOTH EYES SCH ×2 (09:18→16:38)
[2018-01-03] MEDS: DOCUSATE 100 MG CAP PO SCH ×2 (09:19→16:38)
[2018-01-03] MEDS: LOSARTAN 50 MG TAB PO SCH (09:19)
[2018-01-03] MEDS: BACITRACIN/POLYMYX 500-10,000 UNIT/GM OPHTH OINT 3.5 GM TUBE BOTH EYES SCH ×2 (09:19→15:34)
[2018-01-03] MEDS: METOPROLOL TARTRATE 25 MG TAB PO SCH ×2 (09:19→16:38)
[2018-01-03] MEDS: BRIMONIDINE TARTRATE 0.2% DROPS 5 ML BTL RIGHT EYE SCH ×2 (09:19→16:39)
[2018-01-03] MEDS: SODIUM BICARBONATE TAB 650 MG TAB PO SCH ×2 (09:19→16:38)
[2018-01-03] MEDS: FAMOTIDINE 20 MG TAB PO SCH (09:19)
[2018-01-03] MEDS: PSYLLIUM HUSK 100% 6 GM PACKET PO SCH (14:41)
[2018-01-03] MEDS: POTASSIUM CHLORIDE ER 10 MEQ TAB.ER.PRT PO SCH (16:38)
[2018-01-03] MEDS: RIVAROXABAN 20 MG TAB PO SCH (16:38)
--- NOTE | 2018-01-03 18:16 | DS ---
DISCHARGE SUMMARY CHIEF COMPLAINT: Urinary tract infection and possible mental status changes. HISTORY OF PRESENT ILLNESS AND PHYSICAL EXAMINATION: Details of this lady's history and physical can be found in the initial workup. LABORATORY STUDIES: While she was in the hospital she had laboratory studies, details of which can be found in the laboratory section of her chart. COURSE IN THE HOSPITAL: After admission she was placed on bedrest, started on intravenous fluids and seen by Neurology. She had no neurologic signs or symptoms that were unusual or not ordinary for her. She did have a urinary tract infection and low-grade temperature, and this was treated. She had mild conjunctivitis OD as well. She was doing well and it was felt that she could go back to the assisted on January 03. FINAL DIAGNOSES: 1. Mental status changes. 2. ? transient ischemic attack. 3. Urinary tract infection. 4. Total blindness. 5. Multiple sclerosis. OPERATIONS: None. CONSULTATION: Neurology. She is improved. MMGIOVANNI / TANO: [id number] /
--- NOTE | 2018-01-15 13:23 | CDI ---
Last Revision, August 2017 Documentation Clarification Form Date: 01/15/18 From: Angela Alessio Holli Rogers, Laboratory Coordinator between 8:30 am & 5 pm Jeancarlos Admit Date: 12/31/2017 2:13:00 PM Patient Name: Felicia Caruso Visit Number: [id number] Discharge Date: 01/03/18 ATTENTION: The Clinical Documentation Specialists (CDI) and [facility] Coding Staff appreciate your assistance in clarifying documentation. Please respond to the clarification below the line at the bottom and electronically sign. The CDI & [facility] Coding staff will review the response and follow-up if needed. Please note: Queries are made part of the Legal Health Record. If you have any questions, please contact the author of this message via ITS. Dr. Polo Jamison Conflicting documentation has been found in the medical record. Per Dr Bhakta documentation in 01/01 consult and 01/02 Pns: "sepsis". History/Risk Factors: UTI w hx of sepsis, MS, blind Clinical Indicators: lactic acid .8, WBC 10.0, Neutrophils 8.1 Treatment: IV Rocephin changed to IV Invanz In your opinion what is the most clinically appropriate diagnosis for this patient? Sepsis ruled in Sepsis ruled out Other explanation of clinical findings Unable to determine (no explanation for clinical findings) Please continue to document in your progress notes and discharge summary in order to capture severity of illness and risk of mortality. Include clinical findings that support your diagnosis. MTDD
--- NOTE | 2018-01-15 13:28 | CDI ---
Last Revision, August 2017 Documentation Clarification Form Date: 01/15/18 From: Angela Alessio Holli Rogers, Digital Forensics Examiner between 8:30 am & 5 pm Jeancarlos Admit Date: 12/31/2017 2:13:00 PM Patient Name: Felicia Caruso Visit Number: [id number] Discharge Date: 01/03/18 ATTENTION: The Clinical Documentation Specialists (CDI) and [facility] Coding Staff appreciate your assistance in clarifying documentation. Please respond to the clarification below the line at the bottom and electronically sign. The CDI & [facility] Coding staff will review the response and follow-up if needed. Please note: Queries are made part of the Legal Health Record. If you have any questions, please contact the author of this message via ITS. Dr. Polo Jamison Atrial fibrillation is documented in the past medical history in the ED record and both consults. EKG/telemetry: normal sinus rhythm, voltage criteria for left ventrilcular hypertrophy Home meds: Zarelto 20mg po daily In your professional opinion, can you please clarify the type of atrial fibrillation, if known? Chronic/Permanent Paroxysmal Persistent Other, please specify Unable to determine Please continue to document in your progress notes and discharge summary in order to capture severity of illness and risk of mortality. Include clinical findings that support your diagnosis. MTDD
--- NOTE | 2018-01-16 11:56 | MISC ---
MISCELLANOUS REPORT Sepsis ruled out. Type of atrial fibrillation, persistent. MMODL / IJN: [id number] /
== END 2018-01-03 18:53 | DRG 689 ==
LOC: EC 09:58 → 5MS5E 14:13
PROVIDERS: ADMIT Family Medicine; ATTEND Family Medicine
DX: N39.0 Urinary tract infection, site not specified (principal); G93.40 Encephalopathy, unspecified; G35 Multiple sclerosis; I48.1 Persistent atrial fibrillation; Q79.6 Ehlers-Danlos syndromes; G45.9 Transient cerebral ischemic attack, unspecified; F03.90 Unspecified dementia, unspecified severity, without behavioral disturbance, psychotic disturbance, mood disturbance, and anxiety; I69.398 Other sequelae of cerebral infarction; E78.5 Hyperlipidemia, unspecified; H54.8 Legal blindness, as defined in USA; R40.2142 Coma scale, eyes open, spontaneous, at arrival to emergency department; R40.2362 Coma scale, best motor response, obeys commands, at arrival to emergency department; R40.2242 Coma scale, best verbal response, confused conversation, at arrival to emergency department; M79.7 Fibromyalgia; I10 Essential (primary) hypertension; H40.9 Unspecified glaucoma; M21.371 Foot drop, right foot; E03.9 Hypothyroidism, unspecified; R51 Headache; H10.9 Unspecified conjunctivitis; F41.9 Anxiety disorder, unspecified; R32 Unspecified urinary incontinence; M19.91 Primary osteoarthritis, unspecified site; Z79.01 Long term (current) use of anticoagulants; Z79.890 Hormone replacement therapy; Z79.899 Other long term (current) drug therapy; Z88.6 Allergy status to analgesic agent; Z88.1 Allergy status to other antibiotic agents; Z88.5 Allergy status to narcotic agent; Z88.2 Allergy status to sulfonamides; Z88.8 Allergy status to other drugs, medicaments and biological substances; Z91.048 Other nonmedicinal substance allergy status; Z87.81 Personal history of (healed) traumatic fracture; Z86.19 Personal history of other infectious and parasitic diseases; Z90.49 Acquired absence of other specified parts of digestive tract; Z90.710 Acquired absence of both cervix and uterus; Z96.642 Presence of left artificial hip joint; Z90.12 Acquired absence of left breast and nipple; Z98.42 Cataract extraction status, left eye; Z98.41 Cataract extraction status, right eye; Z87.440 Personal history of urinary (tract) infections; Z87.891 Personal history of nicotine dependence; Z82.49 Family history of ischemic heart disease and other diseases of the circulatory system
CPT/HCPCS: 0; 36415; 70450; 71046; 80053; 81001; 83605; 85025; 85027; 87040; 87077; 87086; 87186; 87502; 96374; 99285

== ENCOUNTER 2018-01-04 16:50 | Inpatient (IN) | payer MEDICARE, BC ==
[2018-01-04] MEDS ORDERED: IPRATROPIUM-ALBUTEROL 3 ML NEB INHALATION STA (17:26)
--- NOTE | 2018-01-04 17:29 | ED ---
General Adult HPI - General Chief complaint: Altered Mental Status Stated complaint: Altered Mental Status Time Seen by Provider: 01/04/18 17:17 Source: patient, family, EMS, RN notes reviewed Mode of arrival: EMS Limitations: altered mental status - History of Present Illness Initial comments: 82-year-old female presenting with fever and hypoxia. Patient was transferred from the long-term for evaluation. She was recently seen in this hospital for UTI and altered mental status. She was discharged to the long-term. According to staff there she developed a fever of 102 and oxygen saturation of 90%. She was sent in for evaluation. Patient was started on Invanz. She is accompanied by her who states her mental status is at baseline. Patient denies any specific pain complaints. No history of cough. No history of vomiting or diarrhea. - Related Data Home Medications Medication Instructions Recorded Confirmed Latanoprost Ophth [Xalatan 0.005%] 1 drop BOTH EYES HS 01/28/14 01/04/18 Levothyroxine Sodium [Synthroid] 25 mcg PO DAILY@0600 01/28/14 01/04/18 Docusate [Colace] 200 mg PO BID@0800,1700 11/14/14 01/04/18 Cholecalciferol [Vitamin D3] 2,000 unit PO DAILY@1200 12/11/15 01/04/18 Potassium Chloride [Klor-Con 10] 10 meq PO DAILY@1700 12/11/15 01/04/18 Ascorbic Acid [Vitamin C] 500 mg PO DAILY@1200 05/07/16 01/04/18 Magnesium Oxide [Magox 400] 400 mg PO DAILY@1200 05/07/16 01/04/18 Betaseron Kit 0.3mg 1 dose SQ Q48H 06/09/16 01/04/18 Calcium Carbonate [Tums] 1,000 mg PO DAILY@1700 06/09/16 01/04/18 Losartan [Cozaar] 50 mg PO DAILY 06/09/16 01/04/18 Pramipexole [Mirapex] 0.25 mg PO HS 06/09/16 01/04/18 Psyllium Husk (with Sugar) 6 gm PO DAILY@1200 06/09/16 01/04/18 [Metamucil Powder] Rivaroxaban [Xarelto] 20 mg PO DAILY@1700 06/09/16 01/04/18 Acetaminophen Tab [Tylenol] 325 mg PO Q6H PRN 11/10/17 01/04/18 Bisacodyl [Dulcolax] 10 mg RECTAL DAILY PRN 11/10/17 01/04/18 Brinzolamide [Azopt 1% Ophth Susp] 1 drop BOTH EYES BID@0800,1700 11/10/1701/04 Brinzolamide/Brimonidine Tart 1 drop RIGHT EYE BID@0800,1700 11/10/17 01/04/18 [Simbrinza 1%-0.2% Eye Drops] Carboxymethyl/Gly/Poly80/Pf 1 dropper BOTH EYES DAILY PRN 11/10/17 01/04/18 [Refresh Optive Elio-3 Drops] Famotidine [Pepcid] 20 mg PO DAILY 11/10/17 01/04/18 Loratadine [Claritin] 10 mg PO DAILY PRN 11/10/17 01/04/18 Magnesium Hydroxide [Milk of 2,400 mg PO ONCE PRN 11/10/17 01/04/18 Magnesia] Metoprolol Tartrate [Lopressor] 25 mg PO BID@0800,1700 11/10/17 01/04/18 Mirtazapine [Remeron] 15 mg PO HS 11/10/17 01/04/18 Na Phos,M-B/Na Phos,Di-Ba [Fleet 133 ml RECTAL ONCE PRN 11/10/17 01/04/18 Adult] Lactose-Reduced Food [Ensure Plus] 120 ml PO BID@0800,1700 12/31/17 01/04/18 Sodium Bicarbonate Tab 650 mg PO BID@0800,1700 12/31/17 01/04/18 Bacitracin/Polymyx Ophth Oint 1 applic BOTH EYES TID@08,14,20 01/04/18 01/04/18 [Polysporin] Previous Rx's Medication Instructions Recorded Ertapenem [INVanz] 1 gm IVPB HS #7 vial 01/03/18 Allergies Allergy/AdvReac Type Severity Reaction Status Date / Time acetaminophen [From Tylenol] Allergy Rash/Hives Verified 01/04/18 17:02 codeine Allergy Rash/Hives Verified 01/04/18 17:02 epinephrine Allergy Unknown Verified 01/04/18 17:02 sulfacetamide sodium Allergy Rash/Hives Verified 01/04/18 17:02 [From Sulfamide] adhesive AdvReac Unknown Verified 01/04/18 17:02 ciprofloxacin [From Cipro] AdvReac Unknown Verified 01/04/18 17:02 ciprofloxacin HCl AdvReac Unknown Verified 01/04/18 17:02 [From Cipro] oxycodone HCl [From Percocet] AdvReac Unknown Verified 01/04/18 17:02 prednisone AdvReac Unknown Verified 01/04/18 17:02 Sulfa (Sulfonamide AdvReac Nausea & Verified 01/04/18 17:02 Antibiotics) Vomiting Review of Systems ROS Statement: Those systems with pertinent positive or pertinent negative responses have been documented in the HPI. ROS Other: All systems not noted in ROS Statement are negative. 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 FX LT HIP. 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 History of Any Multi-Drug Resistant Organisms: VRE Date of last positivie culture/infection: 06/09/16 MDRO Source:: Urine Past Surgical History: Breast Surgery, Cholecystectomy, Heart Catheterization, Hysterectomy, Orthopedic Surgery, Pacemaker Additional Past Surgical History / Comment(s): LT HIP CEMENTED UNIPOLAR HEMIARTHROPLASTY cardiac cath-normal, L AND R ROTATOR CUFF with R done twice, L BREAST PARTIAL MASTECTOMY(CYTOSCARCONA PHYLLODES) THEN RECONSTRUCTION, R BREAST REDUCTION, R EYE ANEURYSM- LASER, L KNEE ARTHROSCOPY, L FOOT SURGERY, R AND L CATARACT SURGERY, ADAPTA DR PACEMAKER in January [address] Shell see paper chart for emergency info on pacemaker.CYSTOCELE REPAIR, GETS INJECTIONS IN EYES AND SHOULDER, colonoscopy 2012, capsulotomy-Yag laser 2014. Past Anesthesia/Blood Transfusion Reactions: Previous Problems w/ Anesthesia, Postoperative Nausea & Vomiting (PONV) Additional Past Anesthesia/Blood Transfusion Reaction / Comment(s): LOCAL- VOMITING AND SEIZURE hx long time waking up from anesthesia no epi in local anesthesia!!! Type of Cardiac Device: Permanent Pacemaker Device Placement Date:: 01/30/13 Past Psychological History: Anxiety Smoking Status: Former smoker Past Alcohol Use History: None Reported Past Drug Use History: None Reported - Past Family History Mother Family Medical History: Coronary Artery Disease (CAD) Father Family Medical History: Coronary Artery Disease (CAD), Myocardial Infarction (HI ) Additional Family Medical History / Comment(s): mother and father-cardiac General Exam Limitations: altered mental status General appearance: alert, in no apparent distress Head exam: Present: atraumatic, normocephalic Eye exam: Absent: normal appearance (Slight left gaze deviation) ENT exam: Present: normal exam Neck exam: Present: normal inspection. Absent: tenderness, meningismus Respiratory exam: Present: rhonchi (Bilateral rhonchi, likely transmitted upper airway), decreased breath sounds. Absent: respiratory distress, wheezes Cardiovascular Exam: Present: regular rate, normal rhythm GI/Abdominal exam: Present: soft. Absent: distended, tenderness Extremities exam: Present: normal inspection, normal capillary refill. Absent: pedal edema Neurological exam: Present: alert. Absent: oriented X3, motor sensory deficit Skin exam: Present: warm, dry, intact. Absent: cyanosis, diaphoretic Course Vital Signs 01/04/18 01/04/18 01/04/18 17:12 18:00 18:05 Temperature 98.9 F Pulse Rate 83 91 84 Respiratory 18 Rate Blood Pressure 177/81 155/67 O2 Sat by Pulse 99 97 Oximetry 01/04/18 01/04/18 18:11 19:05 Temperature Pulse Rate 92 92 Respiratory Rate Blood Pressure 150/67 O2 Sat by Pulse 98 Oximetry EKG Findings - EKG Comments: EKG Findings:: EKG normal sinus rhythm, ventricular rate of 83, WI interval 178 , QRS duration 84, QTC 418 Medical Decision Making - Medical Decision Making 82-year-old female presenting with fever and hypoxia. Patient is currently from a long-term. Laboratory studies do reveal leukocytosis elevated at 13.8 , normal electrolytes, influenza is negative. Urinalysis shows persistent UTI with 43 wbc's and rare bacteria. Chest x-ray is negative for focal pneumonia. Case discussed with Dr. Flood who is familiar with the patient, he will accept admission for monitoring of fever, concern for sepsis, and continued IV antibiotics. - Lab Data Result diagrams: 01/04/18 17:00 01/04/18 17:00 Lab Results 01/04/18 01/04/18 01/04/18 Range/Units 17:00 17:00 17:00 WBC 13.8 H (3.8-10.6) k/uL RBC 3.83 (3.80-5.40) m/uL Hgb 10.9 L (11.4-16.0) gm/dL Hct 32.6 L (34.0-46.0) % MCV 85.2 (80.0-100.0) fL MCH 28.4 (25.0-35.0) pg MCHC 33.4 (31.0-37.0) g/dL RDW 13.6 (11.5-15.5) % Plt Count 329 (150-450) k/uL Neutrophils % 83 % Lymphocytes % 9 % Monocytes % 4 % Eosinophils % 3 % Basophils % 0 % Neutrophils # 11.4 H (1.3-7.7) k/uL Lymphocytes # 1.2 (1.0-4.8) k/uL Monocytes # 0.6 (0-1.0) k/uL Eosinophils # 0.4 (0-0.7) k/uL Basophils # 0.0 (0-0.2) k/uL Sodium 139 (137-145) mmol/L Potassium 4.2 (3.5-5.1) mmol/L Chloride 101 (98-107) mmol/L Carbon Dioxide 24 (22-30) mmol/L Anion Gap 14 mmol/L BUN 19 H (7-17) mg/dL Creatinine 0.70 (0.52-1.04) mg/dL Est GFR (CKD-EPI)AfAm >90 (>60 ml/min/1.73 sqM) Est GFR (CKD-EPI)NonAf 82 (>60 ml/min/1.73 sqM) Glucose 91 (74-99) mg/dL Plasma Lactic Acid Rayshawn 0.9 (0.7-2.0) mmol/L Calcium 9.5 (8.4-10.2) mg/dL Total Bilirubin 0.4 (0.2-1.3) mg/dL AST 23 (14-36) U/L ALT 27 (9-52) U/L Alkaline Phosphatase 93 (38-126) U/L NT-Pro-B Natriuret Pep pg/mL Total Protein 6.0 L (6.3-8.2) g/dL Albumin 2.9 L (3.5-5.0) g/dL Urine Color Urine Appearance (Clear) Urine pH (5.0-8.0) Ur Specific [place] (1.001-1.035) Urine Protein (Negative) Urine Glucose (UA) (Negative) Urine Ketones (Negative) Urine Blood (Negative) Urine Nitrite (Negative) Urine Bilirubin (Negative) Urine Urobilinogen (<2.0) mg/dL Ur Leukocyte Esterase (Negative) Urine RBC (0-5) /hpf Urine WBC (0-5) /hpf Urine Bacteria (None) /hpf Urine Mucus (None) /hpf Influenza Type A RNA (Not Detectd) Influenza Type B (PCR) (Not Detectd) 01/04/18 01/04/18 01/04/18 Range/Units 17:00 18:00 18:00 WBC (3.8-10.6) k/uL RBC (3.80-5.40) m/uL Hgb (11.4-16.0) gm/dL Hct (34.0-46.0) % MCV (80.0-100.0) fL MCH (25.0-35.0) pg MCHC (31.0-37.0) g/dL RDW (11.5-15.5) % Plt Count (150-450) k/uL Neutrophils % % Lymphocytes % % Monocytes % % Eosinophils % % Basophils % % Neutrophils # (1.3-7.7) k/uL Lymphocytes # (1.0-4.8) k/uL Monocytes # (0-1.0) k/uL Eosinophils # (0-0.7) k/uL Basophils # (0-0.2) k/uL Sodium (137-145) mmol/L Potassium (3.5-5.1) mmol/L Chloride (98-107) mmol/L Carbon Dioxide (22-30) mmol/L Anion Gap mmol/L BUN (7-17) mg/dL Creatinine (0.52-1.04) mg/dL Est GFR (CKD-EPI)AfAm (>60 ml/min/1.73 sqM) Est GFR (CKD-EPI)NonAf (>60 ml/min/1.73 sqM) Glucose (74-99) mg/dL Plasma Lactic Acid Rayshawn (0.7-2.0) mmol/L Calcium (8.4-10.2) mg/dL Total Bilirubin (0.2-1.3) mg/dL AST (14-36) U/L ALT (9-52) U/L Alkaline Phosphatase (38-126) U/L NT-Pro-B Natriuret Pep 1650 pg/mL Total Protein (6.3-8.2) g/dL Albumin (3.5-5.0) g/dL Urine Color Yellow Urine Appearance Clear (Clear) Urine pH 7.0 (5.0-8.0) Ur Specific [place] 1.019 (1.001-1.035) Urine Protein 1+ H (Negative) Urine Glucose (UA) Negative (Negative) Urine Ketones Negative (Negative) Urine Blood Moderate H (Negative) Urine Nitrite Negative (Negative) Urine Bilirubin Negative (Negative) Urine Urobilinogen 3.0 (<2.0) mg/dL Ur Leukocyte Esterase Large H (Negative) Urine RBC 15 H (0-5) /hpf Urine WBC 43 H (0-5) /hpf Urine Bacteria Rare H (None) /hpf Urine Mucus Rare H (None) /hpf Influenza Type A RNA Not Detected (Not Detectd) Influenza Type B (PCR) Not Detected (Not Detectd) Disposition Clinical Impression: Leukocytosis, UTI (urinary tract infection) Disposition: ADMITTED IP TO THIS HOSP Condition: Stable Referrals: Polo Jamison MD [Primary Care Provider] - 1-2 days Decision to Admit Reason: Admit from EC Decision Date: 01/04/18 Decision Time: 19:52
[2018-01-04 18:06] LABS: Basophils % (A) 0 %; Eosinophils # (A) 0.4 k/uL (0-0.7); Eosinophils % (A) 3 %; HCT 32.6 % (34.0-46.0); HGB 10.9 gm/dL (11.4-16.0); Lymphocytes # (A) 1.2 k/uL (1.0-4.8); Lymphocytes % (A) 9 %; MCH 28.4 pg (25.0-35.0); MCHC 33.4 g/dL (31.0-37.0); MCV 85.2 fL (80.0-100.0); Mean Platelet Volume 8.5; Monocytes # (A) 0.6 k/uL (0-1.0); Monocytes % (A) 4 %; Neutrophils # (A) 11.4 k/uL (1.3-7.7); Neutrophils % (A) 83 %; Platelet Count 329 k/uL (150-450); RBC 3.83 m/uL (3.80-5.40); RDW 13.6 % (11.5-15.5); WBC 13.8 k/uL (3.8-10.6)
[2018-01-04 18:15] LABS: ALT 27 U/L (9-52); AST 23 U/L (14-36); Albumin 2.9 g/dL (3.5-5.0); Alkaline Phosphatase 93 U/L (38-126); Anion Gap 14 mmol/L; Blood Urea Nitrogen 19 mg/dL (7-17); Calcium 9.5 mg/dL (8.4-10.2); Carbon Dioxide 24 mmol/L (22-30); Chloride 101 mmol/L (98-107); Glucose 91 mg/dL (74-99); Potassium 4.2 mmol/L (3.5-5.1); Sodium 139 mmol/L (137-145); Total Bilirubin 0.4 mg/dL (0.2-1.3)
[2018-01-04 18:18] LABS: Appearance,Urine Clear (Clear); Bacteria,Urine Rare /hpf; Bilirubin,Urine Negative (Negative); Blood,Urine Moderate (Negative); Color,Urine Yellow; Glucose,Urine (UA) Negative (Negative); Ketones,Urine Negative (Negative); Leukocyte Esterase,Urine Large (Negative); Mucus,Urine Rare /hpf; Nitrite,Urine Negative (Negative); Protein,Urine 1+ (Negative); RBC,Urine 15 /hpf (0-5); Specific Gravity,Urine 1.019 (1.001-1.035); WBC,Urine 43 /hpf (0-5)
--- NOTE | 2018-01-04 18:39 | XR ---
EXAMINATION TYPE: XR chest 2V DATE OF EXAM: 01/04/2018 COMPARISON: 12/31/2017 HISTORY: Fever TECHNIQUE: Frontal and lateral views of the chest are obtained. FINDINGS: There is no heart failure nor confluent pneumonic infiltrate. There is some coarsening of interstitial markings. There is a left axillary pacemaker with the lead tips in the right ventricle. Thoracic aorta is atheromatous. IMPRESSION: Mild pulmonary fibrosis. No gross heart failure. No change.
[2018-01-04] MEDS ORDERED: NALOXONE 0.4 MG/ML 1 ML VIAL IV PRN (19:48)
[2018-01-04] MEDS ORDERED: IBUPROFEN 400 MG TAB PO STA (20:31)
[2018-01-04] MEDS: IPRATROPIUM-ALBUTEROL 3 ML NEB INHALATION SCH (20:46)
[2018-01-04] MEDS ORDERED: ERTAPENEM 1 GM VIAL IVPB SCH (21:00)
[2018-01-04] MEDS ORDERED: ARTIFICIAL TEARS-HYPROMELLOSE DROPS 15 ML BTL BOTH EYES PRN (21:39)
[2018-01-04] MEDS: ERTAPENEM 1 GM in SODIUM CHLORIDE 0.9% 50 ML IVPB SCH (22:14)
[2018-01-04] MEDS: LATANOPROST 0.005% OPHTH DROPS 2.5 ML BTL BOTH EYES SCH (22:14)
[2018-01-04] MEDS: DORZOLAMIDE HCL 2% DROPS 10 ML BTL RIGHT EYE SCH (22:14)
[2018-01-04] MEDS: SODIUM CHLORIDE 0.9% 1,000 ML IV SCH (22:14)
[2018-01-04] MEDS: MIRTAZAPINE 15 MG TAB PO SCH (22:15)
[2018-01-05] MEDS: LEVOTHYROXINE 25 MCG TAB PO SCH (06:43)
[2018-01-05] MEDS: IPRATROPIUM-ALBUTEROL 3 ML NEB INHALATION SCH ×4 (06:57→19:26)
[2018-01-05] MEDS: DORZOLAMIDE HCL 2% DROPS 10 ML BTL BOTH EYES SCH ×2 (08:44→17:55)
[2018-01-05] MEDS: METOPROLOL TARTRATE 25 MG TAB PO SCH ×2 (08:45→17:56)
[2018-01-05] MEDS: FAMOTIDINE 20 MG TAB PO SCH (08:45)
[2018-01-05] MEDS: BRIMONIDINE TARTRATE 0.2% DROPS 5 ML BTL RIGHT EYE SCH ×2 (08:50→17:55)
[2018-01-05] MEDS: DORZOLAMIDE HCL 2% DROPS 10 ML BTL RIGHT EYE SCH (08:51)
[2018-01-05] MEDS ORDERED: BISACODYL 10 MG SUPP RECTAL PRN (11:59)
[2018-01-05] MEDS ORDERED: NA PHOS,M-B/NA PHOS,DI-BA 133 ML ENEMA RECTAL PRN (11:59)
[2018-01-05] MEDS ORDERED: LORATADINE 10 MG TAB PO PRN (11:59)
[2018-01-05] MEDS ORDERED: ACETAMINOPHEN TAB 325 MG TAB PO PRN (11:59)
[2018-01-05] MEDS ORDERED: MAGNESIUM HYDROXIDE 2,400 MG/10 ML CUP PO PRN (11:59)
[2018-01-05] MEDS: BETASERON 0.3 MG SQ SCH (12:29)
[2018-01-05] MEDS: MAGNESIUM OXIDE 400 MG TAB PO SCH (12:30)
[2018-01-05] MEDS: BACITRACIN/POLYMYX 500-10,000 UNIT/GM OPHTH OINT 3.5 GM TUBE BOTH EYES SCH ×2 (12:30→20:59)
[2018-01-05] MEDS: CHOLECALCIFEROL 1,000 UNIT TAB PO SCH (12:30)
[2018-01-05] MEDS: PSYLLIUM HUSK 100% 6 GM PACKET PO SCH (12:34)
[2018-01-05] MEDS ORDERED: NON-FORMULARY DRUG (Lactose-Reduced Food [Ensure Plus] 120 ML) PO SCH (17:00)
[2018-01-05] MEDS: CALCIUM CARBONATE 500 MG CHEWABLE PO SCH (17:55)
[2018-01-05] MEDS: DOCUSATE 100 MG CAP PO SCH (17:55)
[2018-01-05] MEDS: SODIUM BICARBONATE TAB 650 MG TAB PO SCH (17:56)
[2018-01-05] MEDS: RIVAROXABAN 20 MG TAB PO SCH (17:56)
[2018-01-05] MEDS: POTASSIUM CHLORIDE ER 10 MEQ TAB.ER.PRT PO SCH (17:56)
--- NOTE | 2018-01-05 19:45 | HP ---
HISTORY AND PHYSICAL CHIEF COMPLAINT: Fever, hypotension and lung congestion. HISTORY OF PRESENT ILLNESS: This lady just went home and went back to the retirement when they called that she was running a fever and very congested. Her face was flushed and she was less responsive. She was on the antibiotics sent from the hospital. Her was insistent on her being brought back to the hospital. He will not consider palliative care, hospice, etc. REVIEW OF SYSTEMS: Unobtainable. Past medical history, family history, personal and social histories are unchanged. PHYSICAL EXAMINATION: Blood pressure is 85/40 with a pulse of 72, respirations of 32 and temperature of 101. In general she appeared to be pale and semiparalytic. Eyes were open. She has conjunctivitis on the right. All of her head signs and symptoms are the same as when she left the hospital. Chest is clear. There are good breath sounds heard; however, the chest demonstrated rhonchi on both sides with decreased breath sounds at the bases. Cardiac exam demonstrated sinus rhythm and there were no murmurs. Abdomen was soft and there were no masses. Extremities were normal. IMPRESSION: 1. Fever and congestion, probably due to aspiration pneumonia. 2. Recent urinary tract infection. 3. Multiple sclerosis. 4. Blindness. 5. Conjunctivitis, right eye. PLAN: 1. Restart IV fluids and IV antibiotics. 2. Appropriate cultures. 3. Updrafts. MMGIOVANNI / TANO: [id number] /
--- NOTE | 2018-01-05 19:51 | PN ---
PROGRESS NOTE DATE OF SERVICE: 01/05/2018 CHIEF COMPLAINT: Probable aspiration pneumonia. HISTORY OF PRESENT ILLNESS: This lady seems fairly stable at the present time. She is not particularly congested. Her mental status seems the same as it has been. She is arousable and communicates. PHYSICAL EXAMINATION: Eyes are unchanged. Chest demonstrates occasional rhonchi and occasional rales with decreased breath sounds at both bases. Cardiac exam is normal. Abdomen is soft, nontender. IMPRESSION: 1. Probable aspiration pneumonia. 2. Recent urinary tract infection. 3. Multiple sclerosis. 4. Blindness. 5. Conjunctivitis, right eye. PLAN: Continue with current program and wait for the cultures. MMODL / IJN: [id number] /
[2018-01-05] MEDS: SODIUM CHLORIDE 0.9% 1,000 ML IV SCH (20:59)
[2018-01-05] MEDS: ERTAPENEM 1 GM in SODIUM CHLORIDE 0.9% 50 ML IVPB SCH (21:00)
[2018-01-05] MEDS: PRAMIPEXOLE 0.25 MG TAB PO SCH (21:00)
[2018-01-05] MEDS: MIRTAZAPINE 15 MG TAB PO SCH (21:00)
[2018-01-05] MEDS: LATANOPROST 0.005% OPHTH DROPS 2.5 ML BTL BOTH EYES SCH (21:00)
[2018-01-06] MEDS: LEVOTHYROXINE 25 MCG TAB PO SCH (06:28)
[2018-01-06] MEDS: IPRATROPIUM-ALBUTEROL 3 ML NEB INHALATION SCH ×4 (07:21→19:04)
[2018-01-06] MEDS: BRIMONIDINE TARTRATE 0.2% DROPS 5 ML BTL RIGHT EYE SCH ×2 (08:23→15:56)
[2018-01-06] MEDS: BACITRACIN/POLYMYX 500-10,000 UNIT/GM OPHTH OINT 3.5 GM TUBE BOTH EYES SCH ×3 (08:23→20:02)
[2018-01-06] MEDS: DORZOLAMIDE HCL 2% DROPS 10 ML BTL BOTH EYES SCH ×2 (08:23→15:57)
[2018-01-06] MEDS: FAMOTIDINE 20 MG TAB PO SCH (08:24)
[2018-01-06] MEDS: SODIUM BICARBONATE TAB 650 MG TAB PO SCH ×2 (08:24→15:58)
[2018-01-06] MEDS: DOCUSATE 100 MG CAP PO SCH ×2 (08:24→15:57)
[2018-01-06] MEDS: LOSARTAN 50 MG TAB PO SCH (08:24)
[2018-01-06] MEDS: METOPROLOL TARTRATE 25 MG TAB PO SCH ×2 (08:24→15:57)
[2018-01-06] MEDS: MAGNESIUM OXIDE 400 MG TAB PO SCH (11:18)
[2018-01-06] MEDS: CHOLECALCIFEROL 1,000 UNIT TAB PO SCH (11:18)
[2018-01-06] MEDS: PSYLLIUM HUSK 100% 6 GM PACKET PO SCH (11:18)
--- NOTE | 2018-01-06 15:34 | XR ---
EXAMINATION TYPE: XR chest 2V DATE OF EXAM: 01/06/2018 COMPARISON: Prior chest 01/04/2018 HISTORY: Pneumonia TECHNIQUE: Frontal and lateral views of the chest are obtained. FINDINGS: Patient is rotated. Generator is present in the left pectoral region, leads are present in the right atrium and ventricle. Bilateral shoulder surgery has been performed. No evident pneumothor ax or pleural effusion. Heart size may be accentuated by rotation, exam is expiratory. Possible retro cardiac density. The aorta is dense and possibly ectatic. IMPRESSION: There may be left lower lobe atelectasis versus pneumonia, correlate. Additional finding s above. Follow-up suggested. Rotated expiratory exam.
[2018-01-06] MEDS: CALCIUM CARBONATE 500 MG CHEWABLE PO SCH (15:57)
[2018-01-06] MEDS: RIVAROXABAN 20 MG TAB PO SCH (15:58)
[2018-01-06] MEDS: POTASSIUM CHLORIDE ER 10 MEQ TAB.ER.PRT PO SCH (15:58)
--- NOTE | 2018-01-06 18:10 | PN ---
PROGRESS NOTE CHIEF COMPLAINT: Aspiration pneumonia. HISTORY OF PRESENT ILLNESS: This lady is fairly stable. Temperature has been down, but she has extensive coarse rales and rhonchi through both lung pastrana and a productive cough. X-ray now suggests an infiltrate. PHYSICAL EXAM: She has bilateral rhonchi and rales. Cardiac exam is normal. The abdomen is soft, nontender. IMPRESSION: 1. Bronchial pneumonia. 2. Multiple sclerosis. 3. Blindness. 4. Conjunctivitis, right eye. PLAN: Continue on antibiotic regimen and repeat chest x-ray soon. MMODL / IJN: [id number] /
[2018-01-06] MEDS: LATANOPROST 0.005% OPHTH DROPS 2.5 ML BTL BOTH EYES SCH (20:57)
[2018-01-06] MEDS: PRAMIPEXOLE 0.25 MG TAB PO SCH (20:57)
[2018-01-06] MEDS: MIRTAZAPINE 15 MG TAB PO SCH (20:57)
[2018-01-06] MEDS: SODIUM CHLORIDE 0.9% 1,000 ML IV SCH (21:14)
[2018-01-06] MEDS: ERTAPENEM 1 GM in SODIUM CHLORIDE 0.9% 50 ML IVPB SCH (21:42)
[2018-01-07] MEDS: LEVOTHYROXINE 25 MCG TAB PO SCH (06:32)
[2018-01-07] MEDS: IPRATROPIUM-ALBUTEROL 3 ML NEB INHALATION SCH ×4 (06:49→19:25)
[2018-01-07] MEDS: SODIUM BICARBONATE TAB 650 MG TAB PO SCH ×2 (07:49→16:22)
[2018-01-07] MEDS: LOSARTAN 50 MG TAB PO SCH (07:49)
[2018-01-07] MEDS: BACITRACIN/POLYMYX 500-10,000 UNIT/GM OPHTH OINT 3.5 GM TUBE BOTH EYES SCH ×3 (07:49→21:35)
[2018-01-07] MEDS: FAMOTIDINE 20 MG TAB PO SCH (07:49)
[2018-01-07] MEDS: DORZOLAMIDE HCL 2% DROPS 10 ML BTL BOTH EYES SCH ×2 (07:49→16:21)
[2018-01-07] MEDS: METOPROLOL TARTRATE 25 MG TAB PO SCH ×2 (07:49→16:22)
[2018-01-07] MEDS: BRIMONIDINE TARTRATE 0.2% DROPS 5 ML BTL RIGHT EYE SCH ×2 (07:49→16:21)
[2018-01-07] MEDS: DOCUSATE 100 MG CAP PO SCH ×2 (07:50→16:22)
[2018-01-07] MEDS: BETASERON 0.3 MG SQ SCH (12:59)
[2018-01-07] MEDS: MAGNESIUM OXIDE 400 MG TAB PO SCH (13:02)
[2018-01-07] MEDS: CHOLECALCIFEROL 1,000 UNIT TAB PO SCH (13:02)
[2018-01-07] MEDS: PSYLLIUM HUSK 100% 6 GM PACKET PO SCH (13:25)
--- NOTE | 2018-01-07 14:14 | PN ---
PROGRESS NOTE CHIEF COMPLAINT: Aspiration pneumonia. HISTORY OF PRESENT ILLNESS: This lady's status is currently fairly stable. She still has quite a bit of congestion on auscultation. REVIEW OF SYSTEMS: Her level of consciousness is fairly close to normal for her. PHYSICAL EXAM: She has rhonchi scattered through both lung pastrana. The cardiac exam is normal. Abdomen is soft. No masses. IMPRESSION: 1. Aspiration pneumonia. 2. Multiple sclerosis. 3. Blindness. 4. Urinary tract infection. 5. Conjunctivitis, left eye. PLAN: Continue on current treatment and return to [facility] once she is stable enough to go back. MMODL / IJN: [id number] /
[2018-01-07] MEDS: RIVAROXABAN 20 MG TAB PO SCH (16:22)
[2018-01-07] MEDS: POTASSIUM CHLORIDE ER 10 MEQ TAB.ER.PRT PO SCH (16:22)
[2018-01-07] MEDS: CALCIUM CARBONATE 500 MG CHEWABLE PO SCH ×2 (16:22→16:40)
[2018-01-07] MEDS: PRAMIPEXOLE 0.25 MG TAB PO SCH (21:36)
[2018-01-07] MEDS: MIRTAZAPINE 15 MG TAB PO SCH (21:36)
[2018-01-07] MEDS: LATANOPROST 0.005% OPHTH DROPS 2.5 ML BTL BOTH EYES SCH (21:36)
[2018-01-07] MEDS: SODIUM CHLORIDE 0.9% 1,000 ML IV SCH (21:37)
[2018-01-07] MEDS: ERTAPENEM 1 GM in SODIUM CHLORIDE 0.9% 50 ML IVPB SCH (21:46)
[2018-01-08] MEDS: LEVOTHYROXINE 25 MCG TAB PO SCH (06:21)
[2018-01-08] MEDS: IPRATROPIUM-ALBUTEROL 3 ML NEB INHALATION SCH ×4 (07:21→19:25)
[2018-01-08] MEDS: BACITRACIN/POLYMYX 500-10,000 UNIT/GM OPHTH OINT 3.5 GM TUBE BOTH EYES SCH ×3 (09:02→21:58)
[2018-01-08] MEDS: BRIMONIDINE TARTRATE 0.2% DROPS 5 ML BTL RIGHT EYE SCH ×2 (09:05→17:17)
[2018-01-08] MEDS: METOPROLOL TARTRATE 25 MG TAB PO SCH ×2 (09:06→17:18)
[2018-01-08] MEDS: DOCUSATE 100 MG CAP PO SCH ×2 (09:06→17:17)
[2018-01-08] MEDS: DORZOLAMIDE HCL 2% DROPS 10 ML BTL BOTH EYES SCH ×2 (09:06→17:18)
[2018-01-08] MEDS: SODIUM BICARBONATE TAB 650 MG TAB PO SCH ×2 (09:07→17:18)
[2018-01-08] MEDS: LOSARTAN 50 MG TAB PO SCH (09:07)
[2018-01-08] MEDS: FAMOTIDINE 20 MG TAB PO SCH (09:07)
[2018-01-08] MEDS: CHOLECALCIFEROL 1,000 UNIT TAB PO SCH (14:33)
[2018-01-08] MEDS: MAGNESIUM OXIDE 400 MG TAB PO SCH (14:33)
[2018-01-08] MEDS: PSYLLIUM HUSK 100% 6 GM PACKET PO SCH (14:36)
[2018-01-08] MEDS: CALCIUM CARBONATE 500 MG CHEWABLE PO SCH (17:17)
[2018-01-08] MEDS: POTASSIUM CHLORIDE ER 10 MEQ TAB.ER.PRT PO SCH (17:18)
[2018-01-08] MEDS: RIVAROXABAN 20 MG TAB PO SCH (17:18)
[2018-01-08] MEDS: MIRTAZAPINE 15 MG TAB PO SCH (21:59)
[2018-01-08] MEDS: LATANOPROST 0.005% OPHTH DROPS 2.5 ML BTL BOTH EYES SCH (21:59)
[2018-01-08] MEDS: SODIUM CHLORIDE 0.9% 1,000 ML IV SCH (21:59)
[2018-01-08] MEDS: ERTAPENEM 1 GM in SODIUM CHLORIDE 0.9% 50 ML IVPB SCH (21:59)
[2018-01-08] MEDS: PRAMIPEXOLE 0.25 MG TAB PO SCH (22:00)
[2018-01-09] MEDS: LEVOTHYROXINE 25 MCG TAB PO SCH (06:28)
[2018-01-09] MEDS: IPRATROPIUM-ALBUTEROL 3 ML NEB INHALATION SCH ×3 (07:14→15:35)
[2018-01-09 08:35] VITALS: RESP 16
[2018-01-09] MEDS: DORZOLAMIDE HCL 2% DROPS 10 ML BTL BOTH EYES SCH ×2 (09:43→17:06)
[2018-01-09] MEDS: BACITRACIN/POLYMYX 500-10,000 UNIT/GM OPHTH OINT 3.5 GM TUBE BOTH EYES SCH ×2 (09:43→14:49)
[2018-01-09] MEDS: BRIMONIDINE TARTRATE 0.2% DROPS 5 ML BTL RIGHT EYE SCH ×2 (09:43→17:06)
[2018-01-09] MEDS: METOPROLOL TARTRATE 25 MG TAB PO SCH ×2 (09:45→17:07)
[2018-01-09] MEDS: DOCUSATE 100 MG CAP PO SCH ×2 (09:45→17:07)
[2018-01-09] MEDS: FAMOTIDINE 20 MG TAB PO SCH (09:45)
[2018-01-09] MEDS: SODIUM BICARBONATE TAB 650 MG TAB PO SCH ×2 (09:45→17:07)
[2018-01-09] MEDS: LOSARTAN 50 MG TAB PO SCH (09:46)
[2018-01-09] MEDS: BETASERON 0.3 MG SQ SCH (12:56)
[2018-01-09] MEDS: CHOLECALCIFEROL 1,000 UNIT TAB PO SCH (12:58)
[2018-01-09] MEDS: MAGNESIUM OXIDE 400 MG TAB PO SCH (12:58)
[2018-01-09] MEDS: PSYLLIUM HUSK 100% 6 GM PACKET PO SCH (12:59)
[2018-01-09 13:54] VITALS: BMI 22.4
[2018-01-09 15:28] VITALS: BP 142/88; TEMP 97.8
[2018-01-09 15:37] VITALS: PULSE 72
[2018-01-09] MEDS: CALCIUM CARBONATE 500 MG CHEWABLE PO SCH (17:06)
[2018-01-09] MEDS: RIVAROXABAN 20 MG TAB PO SCH (17:07)
[2018-01-09] MEDS: POTASSIUM CHLORIDE ER 10 MEQ TAB.ER.PRT PO SCH (17:07)
--- NOTE | 2018-01-09 17:40 | DS ---
DISCHARGE SUMMARY CHIEF COMPLAINT: Septicemia pneumonitis. HISTORY OF PRESENT ILLNESS AND PHYSICAL EXAM: Details of this lady's history and physical can be found in the initial workup. LABORATORY STUDIES: While she was in the hospital she had laboratory studies details of which can be found in the laboratory section of her chart. COURSE IN HOSPITAL: After admission, she was placed on bedrest, started on intravenous fluids and antibiotics. It was determined that it was most likely that her fever was due to aspiration pneumonia. Temperature came down and she was doing fairly well and was more or less back to baseline although neurologically she seems to continually be deteriorating from her MS. She will be transferred back to [facility] on . FINAL DIAGNOSIS: 1. Aspiration pneumonia. 2. Septicemia. 3. Multiple sclerosis. 4. Amblyopia. OPERATIONS: None. CONSULTATIONS: None. She is improved. ALONSO / TANO: [id number] /
--- NOTE | 2018-01-09 18:01 | PN ---
PROGRESS NOTE DATE OF SERVICE: 01/08/18 CHIEF COMPLAINT: 1. Aspiration pneumonia. 2. Multiple sclerosis. 3. Blindness. HISTORY OF PRESENT ILLNESS: This lady is probably as stable as she is going to become. She is still quite lethargic, but temperature has been down. Her chest is slowly improving. PHYSICAL EXAM: She still has occasional rhonchi and rales bilaterally, anteriorly and laterally. Cardiac exam is normal and she is a little more lethargic than usual. IMPRESSION: 1. Aspiration pneumonia. 2. Septicemia. 3. Multiple sclerosis. 4. Amblyopia. 5. Chronic urinary tract infection. PLAN: [facility] two. She is not likely to benefit from being in the hospital any longer. MMODL / IJN: [id number] /
[2018-01-09] MEDS ORDERED: AMOXIC-POT CLAV 875-125MG 1 EACH TAB PO SCH (21:00)
--- NOTE | 2018-01-11 14:35 | CDI ---
Last Revision, August 2017 Documentation Clarification Form Date: 01/11/18 From: Angela Alessio Holli Rogers, Staff Attorney between 8:30 am & 5 pm Jeancarlos Admit Date: 01/04/2018 7:48:00 PM Patient Name: Felicia Caruso Visit Number: [id number] Discharge Date: 01/04/18 ATTENTION: The Clinical Documentation Specialists (CDI) and [facility] Coding Staff appreciate your assistance in clarifying documentation. Please respond to the clarification below the line at the bottom and electronically sign. The CDI & [facility] Coding staff will review the response and follow-up if needed. Please note: Queries are made part of the Legal Health Record. If you have any questions, please contact the author of this message via ITS. Dr. Polo Jamison Atrial fibrillation is documented in the past medical history. She is taking Xarelto 20 mg daily. EKG/telemetry: Normal sinus rhythm In your professional opinion, can you please clarify the type of atrial fibrillation, if known? Chronic/Permanent Paroxysmal Persistent Other, please specify Unable to determine Please continue to document in your progress notes and discharge summary in order to capture severity of illness and risk of mortality. Include clinical findings that support your diagnosis. MTDD
--- NOTE | 2018-01-12 12:03 | MISC ---
MISCELLANOUS REPORT Type of atrial fibrillation, chronic and prominent. MMODL / IJN: [id number] /
== END 2018-01-09 19:47 | DRG 871 ==
LOC: EC 16:50 → 4MS4W 19:48
PROVIDERS: ADMIT Family Medicine; ATTEND Family Medicine
DX: A41.9 Sepsis, unspecified organism (principal); J69.0 Pneumonitis due to inhalation of food and vomit; I95.9 Hypotension, unspecified; G35 Multiple sclerosis; I48.2 Chronic atrial fibrillation; Q79.6 Ehlers-Danlos syndromes; F03.90 Unspecified dementia, unspecified severity, without behavioral disturbance, psychotic disturbance, mood disturbance, and anxiety; I69.398 Other sequelae of cerebral infarction; N39.0 Urinary tract infection, site not specified; R40.2142 Coma scale, eyes open, spontaneous, at arrival to emergency department; R40.2362 Coma scale, best motor response, obeys commands, at arrival to emergency department; R40.2252 Coma scale, best verbal response, oriented, at arrival to emergency department; H54.8 Legal blindness, as defined in USA; E03.9 Hypothyroidism, unspecified; E78.5 Hyperlipidemia, unspecified; M21.371 Foot drop, right foot; H40.9 Unspecified glaucoma; H10.9 Unspecified conjunctivitis; H53.009 Unspecified amblyopia, unspecified eye; I10 Essential (primary) hypertension; R09.02 Hypoxemia; F41.9 Anxiety disorder, unspecified; M19.91 Primary osteoarthritis, unspecified site; M79.7 Fibromyalgia; Z79.01 Long term (current) use of anticoagulants; Z79.890 Hormone replacement therapy; Z79.899 Other long term (current) drug therapy; Z87.81 Personal history of (healed) traumatic fracture; Z87.440 Personal history of urinary (tract) infections; Z86.19 Personal history of other infectious and parasitic diseases; Z90.49 Acquired absence of other specified parts of digestive tract; Z90.710 Acquired absence of both cervix and uterus; Z95.0 Presence of cardiac pacemaker; Z87.891 Personal history of nicotine dependence; Z96.642 Presence of left artificial hip joint; Z90.12 Acquired absence of left breast and nipple; Z98.42 Cataract extraction status, left eye; Z98.41 Cataract extraction status, right eye; Z88.6 Allergy status to analgesic agent; Z88.1 Allergy status to other antibiotic agents; Z88.5 Allergy status to narcotic agent; Z88.2 Allergy status to sulfonamides; Z88.8 Allergy status to other drugs, medicaments and biological substances; Z91.048 Other nonmedicinal substance allergy status; Z82.49 Family history of ischemic heart disease and other diseases of the circulatory system
CPT/HCPCS: 36415; 71046; 80053; 81001; 83605; 83880; 85025; 85027; 87040; 87086; 87502; 93005; 94640; 94760; 99285